=== PATIENT | female | born 1950 | race Caucasian/White ===

== ENCOUNTER → 2019-12-18 | Emergency (ER) | payer MEDICARE, OTHER ==
[~2019-12-18] VITALS: Ht 167.6 cm; Wt 61.2 kg
[~2019-12-18] MED LIST: CALCIUM 500 +1 EAC2 PO; CITALOPRAM HBR20 MG PO; IPRATROPIUM BRO15 ML NAS; LOVASTATIN20 MG PO; NORCO 10-325 T1 EACH PO; SERTRALINE HCL50 MG PO; XARELTO20 MG PO
--- OUTSIDE RECORDS SUMMARY | ~2019-12-18 | XMS | Encounter Summary ---
Demographics + + + | Address | [address] | | | [place] [address] | + + + | Home Phone | | + + + | Preferred Language | Unknown | + + + | Marital Status | | + + + | Alevism Affiliation | 1073 | + + + | Race | White | + + + | Ethnic Group | Not or | + + + Author + + + | Author | [facility] | | | and [place] | + + + | Organization | [facility] | | | and [place] | + + + | Address | Unknown | + + + | Phone | Unavailable | + + + Support + + + + + | Name | Relationship | Address | Phone | + + + + + | Ryan Elder | ECON | [address] | | | | | [place] | | | | | [address] | | + + + + + Care Team Providers + +------+ + | Care Music Arranger Name | Role | Phone | + +------+ + | Avi Herman MD | PCP | | + +------+ + Reason for Visit + +--------+ + | Reason | Onset | Comments | | | Date | | + +--------+ + | Appointment | 09/23/ | | | | 2015 | | + +--------+ + Encounter Details +--------+ + + + + | Date | Type | Department | Care Team | Description | +--------+ + + + + | 09/23/ | Telephone | [facility] | John Temple MD | Appointment | | 2015 | | GASTROENTEROLOGY | [address], [place] | | | | | [address] [place] | [address] [place], [place] | | | | | [address] [place], [place] | [address] | | | | | [address] | | | | | | [phone] | | | +--------+ + + + + Social History + +-------+ +--------+------+ | Tobacco Use | Types | Packs/Day | Years | Date | | | | | Used | | + +-------+ +--------+------+ | Former Smoker | | | | | + +-------+ +--------+------+ + +---+---+---+ | Smokeless Tobacco: | | | | | Never Used | | | | + +---+---+---+ + + | Comments: 10 years ago | + + + + +---------+ + | Alcohol Use | Drinks/Week | oz/Week | Comments | + + +---------+ + | Yes | 0 Standard drinks | 0.0 | "social drinker" | | | or equivalent | | | + + +---------+ + + + + | Sex Assigned at | Date Recorded | | | | + + + | Not on file | | + + + documented as of this encounter Miscellaneous Notes Telephone Encounter - Darlene Barrow RN - 09/26/2015 4:45 PM PDTPatient had knee bergman rgery a year ago and now it became loose and she needs a total knee replacement which is blanca eduled for 10/24/15. She is on xeralto for her atrial fib. She mainly wanted to make sure s he can get her colonoscopy done by Dr Temple this fall. She states her spouse needs one as aaron sher. She will call back in November. She has her prep from previously scheduled colonosco py which was cancelled when she developed Atrial fib. Told patient Dr Temple will need to rev iew her cardiology work up and she will likely need to hold the Xeralto.Electronically ayesha d by Darlene Barrow RN at 09/26/2015 4:52 PM PDTTelephone Encounter - Carmenza Parsons - 2015 4:51 PM PDTPatient called to speak with Dr. Temple's RN, Christian in regards to s cheduling her colonoscopy. She said that she just "needs to touch bases with Christian and sched ule her procedure before her knee surgery". Please advise and call her back at [phone] lectronically signed by Carmenza Parsons at 2015 4:54 PM PDTdocumented in this encounte r Plan of Treatment +--------+---------+ + + + | Date | Type | Specialty | Care Team | Description | +--------+---------+ + + + | 10/12/ | Office | Neurology | Geo Worley MD [address] | | | 2020 | Visit | | [address] | | | | | | [place], | | | | | | [place] [address] | | | | | | [phone] | | | | | | | | +--------+---------+ + + + documented as of this encounter Visit Diagnoses Not on filedocumented in this encounter
--- OUTSIDE RECORDS SUMMARY | ~2019-12-18 | XMS | Encounter Summary ---
Demographics + + + | Address | [address] | | | [place] [address] | + + + | Home Phone | | + + + | Preferred Language | Unknown | + + + | Marital Status | | + + + | Orthodoxy Affiliation | 1073 | + + + | Race | White | + + + | Ethnic Group | Not or | + + + Author + + + | Author | [facility] | | | and [place] | + + + | Organization | [facility] | | | [...] [place] | | | | | [address] | | + + + + + Care Team Providers + +------+ + | Care Care Aid Name | Role | Phone | + +------+ + | Avi Herman MD | PCP | | + +------+ + Reason for Visit +--------+--------+ + | Reason | Onset | Comments | | | Date | | +--------+--------+ + | Other | 07/08/ | | | | 2016 | | +--------+--------+ + Encounter Details +--------+ + + + + | Date | Type | Department | Care Team | Description | +--------+ + + + + | 07/08/ | Telephone | [facility] | John Temple MD | Other | | 2016 | | GASTROENTEROLOGY | [address], [place] | | | | | [address] [place] | [address] [place], [place] | | | | | [address] [place], [place] | [address] | | | | | [address] | | | | | | [phone] | | | +--------+ + + + [...] Telephone Encounter - Darlene Barrow RN - 07/08/2016 5:13 PM PDTNotified patient th at Dr. Temple and Dr. Simpson discussed her Xeralto and atrial flutter and feel it is better gabi t she continues on this her Xeralto prior to EGD and colonoscopy this Wednesday. She is agreea ble. documented in this encounter Plan of Treatment +--------+---------+ + + + | Date | Type | Specialty | Care Team | Description | +--------+---------+ + + + | 01/07/ | Office | Neurology | Geo Worley MD [address] | | | 2019 | Visit | | [facility] | | | | | | [place], | | | | | | [place] [address] | | | | | | [phone] | | | | | | | | +--------+---------+ + + + documented as of this encounter Visit Diagnoses Not on filedocumented in this encounter
--- OUTSIDE RECORDS SUMMARY | ~2019-12-18 | XMS | Encounter Summary ---
Demographics + + + | Address | [address] | | | [place] [address] | + + + | Home Phone | | + + + | Preferred Language | Unknown | + + + | Marital Status | | + + + | Orthodoxy Affiliation | 1073 | + + + | Race | White | + + + | Ethnic Group | Not or | + + + Author + + + | Author | [facility] | | | and [place] | + + + | Organization | [facility] | | | [...] [place] | | | | | [address] | | + + + + + Care Team Providers + +------+ + | Care Dough Scaler And Mixer Name | Role | Phone | + +------+ + | Avi Herman MD | PCP | | + +------+ + Reason for Visit + +--------+ + | Reason | Onset | Comments | | | Date | | + +--------+ + | Post-op Problem | 05/28/ | stuart may | | | 2014 | | + +--------+ + Encounter Details +--------+ + + + + | Date | Type | Department | Care Team | Description | +--------+ + + + + | 05/28/ | Telephone | [facility] | Pa Abad MD | Post-op Problem | | 2015 | | [address]ARYNGOLOGY [address] | [address] [place] | ([address] | | | | [address] [facility] [address] | [address] [place], [place] | her) | | | | [place] | [address] | | | | | [address] | | | | | | [phone] | | | +--------+ + + + + Social History + +-------+ +--------+------+ | Tobacco Use | Types | Packs/Day | Years | Date | | | | | Used | | + +-------+ +--------+------+ | Former Smoker | | | | | + +-------+ +--------+------+ + + | Comments: 10 years ago | + + + + +---------+ + | Alcohol Use | Drinks/Week | oz/Week | Comments | + + +---------+ + | Not Asked | | | | + + +---------+ + + + + | Sex Assigned at | Date Recorded | | | | + + + | Not on file | | + + + documented as of this encounter Miscellaneous Notes Telephone Encounter - Radelfinger, Rosemary S, RN - 05/28/2014 1:33 PM PSTCalled patient an d told her Dr Abad could see her today.Electronically signed by REBECCA Ward t 05/28/2014 1:48 PM PSTTelephone Encounter - Pa Abad MD - 05/28/2014 12:16 PM PSTEa rly is ok elephone Encou nter - Rosemary Syed RN - 05/28/2014 10:57 AM PSTPlease advise. She doesn't have a post prodecure appointment scheduled yet. elephone Encounter - Shauna Lemus - 05/28/2014 9:21 AM PSTP atient called saying she is having some trouble with her stitches. 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 Please call back on the cell phone listed and advise patient. documented in this encounter Plan of Treatment +--------+---------+ + + + | Date | Type | Specialty | Care Team | Description | +--------+---------+ + + + | 01/07/ | Office | Neurology | Geo Worley MD [address] | | | 2020 | Visit | | [address] | | | | | | [place] | | | | | | [place] [address] | | | | | | [phone] | | | | | | | | +--------+---------+ + + + documented as of this encounter Visit Diagnoses Not on filedocumented in this encounter"
--- OUTSIDE RECORDS SUMMARY | ~2019-12-18 | XMS | Encounter Summary ---
Demographics + + + | Address | [address] | | | [place] [address] | + + + | Home Phone | | + + + | Preferred Language | Unknown | + + + | Marital Status | | + + + | Mosque Affiliation | 1073 | + + + | Race | White | + + + | Ethnic Group | Not or | + + + Author + + + | Author | [facility] | | | and [place] | + + + | Organization | [facility] | | | and [...] [place] | | | | | [address] | | + + + + + Care Team Providers + +------+ + | Care Production Controller Name | Role | Phone | + +------+ + | Avi Herman MD | PCP | | + +------+ + Reason for Visit + + + | Reason | Comments | + + + | Follow-up | stool studies done 11/27/2016, previous positive Campylobacter | + + + Encounter Details +--------+---------+ + + + | Date | Type | Department | Care Team | Description | +--------+---------+ + + + | 12/01/ | Office | [facility] | John Temple MD | Diarrhea, | | 2017 | Visit | GASTROENTEROLOGY | [address], [facility] | unspecified type | | | | [address] [place] | [address] [place] | (Primary Dx); Full | | | | [address] [place] | [address] | incontinence of | | | | [address] | | feces | | | | [phone] | | | +--------+---------+ + + + Social History + + + +--------+ + | Tobacco Use | Types | Packs/Day | Years | Date | | | | | Used | | + + + +--------+ + | Former Smoker | Cigarettes | 1.5 | 5 | Quit: 03/29/1978 | + + + +--------+ + + +---+---+---+ | Smokeless Tobacco: | | | | | Never Used | | | | + +---+---+---+ + + +---------+ + | Alcohol Use | Drinks/Week | oz/Week | Comments | + + +---------+ + | Yes | 1 Shots of liquor | 1.0 | "social drinker" | | | 0 Standard drinks | | | | | or equivalent | | | + + +---------+ + + + + | Sex Assigned at | Date Recorded | | | | + + + | Not on file | | + + + documented as of this encounter Last Filed Vital Signs + + + + + | Vital Sign | Reading | Time Taken | Comments | + + + + + | Blood Pressure | 100/70 | 12/01/2016 1:32 PM | | | | | PDT | | + + + + + | Pulse | 64 | 12/01/2016 1:32 PM | | | | | PDT | | + + + + + | Temperature | - | - | | + + + + + | Respiratory Rate | 16 | 12/01/2016 1:32 PM | | | | | PDT | | + + + + + | Oxygen Saturation | - | - | | + + + + + | Inhaled Oxygen | - | - | | | Concentration | | | | + + + + + | Weight | 64.9 kg (143 lb) | 12/01/2016 1:32 PM | | | | | PDT | | + + + + + | Height | 170.2 cm (5' 7") | 12/01/2016 1:32 PM | | | | | PDT | | + + + + + | Body Mass Index | 22.4 | 12/01/2016 1:32 PM | | | | | PDT | | + + + + + documented in this encounter Progress Notes John Temple MD - 12/01/2016 1:00 PM PDT Subjective: Patient ID: Bekah Elder is a 66 y.o. female. The patient returns to discuss recurrent diarrhea. Patient underwent colonoscopy in June 2016 for evaluation of diarrhea. Upper endoscopy an d colonoscopy were negative with respect to visual appearance and biopsies of the mucosa. C ampylobacter however was positive. She was treated with azithromycin 500 mg 1 by mouth jef y for 3 days. She did fairly well for a week or 2 after treatment. However the stool was g radually gotten looser and she's had urgency with watery stools. She denies any blood or mu cus in the stools chills or fever. She has increased stool frequency after meals. Frequenc y is now up to 5 or 6 a day. She denies any nocturnal stools. The patient denies any abdom inal pain has some lower abdominal cramping prior to evacuation. Repeat stool studies were negative done through into Patches were negative as well as Giardia antigen and cryptosporidium and C. diff. The kvng ent's weight is been stable. The patient's has not been ill. They have well water but there is no livestock around the same for possible contamination. The patient has past history of irritable bowel syndrome. Patient has not tried Imodium or Lomotil as been on so me probiotics. 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 Bob CARPAL TUNNEL RELEASE Left CARPAL TUNNEL RELEASE Right CATARACT REMOVAL 2013 COLONOSCOPY COLONOSCOPY N/A 07/10/2016 Procedure: COLONOSCOPY; Surgeon: John Temple MD; Location: [facility] HIP ARTHROSCOPY Left KNEE ARTHROSCOPY Left 2011 KNEE JOINT REPLACEMENT Left 08/08/2014 Dr. Beltran TONSILLECTOMY UPPER GASTROINTESTINAL ENDOSCOPY N/A 07/10/2016 Procedure: EGD; Surgeon: John Temple MD; Location: [facility] VAGINA SURGERY Family History Problem Relation Age of Onset Heart attack Father Osteoarthritis Father Hypertension Father Muscle disease Father Kidney disease Father Gout Father Osteoporosis Mother Dementia Mother Other (see comment) Mother PAF Hypertension Mother Muscle disease Mother Kidney disease Mother Heart attack Mother Cancer Mother Hypertension Other Sibling history Heart attack Other Sibling history Muscle disease Other Sibling history Kidney disease Other Sibling history Social History Social History Marital status: Spouse name: N/A Number of children: N/A Years of education: N/A 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 All other systems reviewed and are negative. Objective: BP 100/70 | Pulse 64 | Resp 16 | Ht 1.702 m (5' 7") | Wt 64.9 kg (143 lb) | BMI 22.40 kg/m Physical Exam Constitutional: She is oriented to person, place, and time. She appears well-developed and well-nourished. No distress. HENT: Head: Normocephalic and atraumatic. Right Ear: External ear normal. Left Ear: External ear normal. Nose: Nose normal. Mouth/Throat: Oropharynx is clear and moist. No oropharyngeal exudate. Eyes: Conjunctivae and EOM are normal. Pupils are equal, round, and reactive to light. Righ t eye exhibits no discharge. Left eye exhibits no discharge. No scleral icterus. Neck: Normal range of motion. Neck supple. No JVD present. No tracheal deviation present. Cardiovascular: Normal rate, regular rhythm, normal heart sounds and intact distal pulses. Exam reveals no gallop and no friction rub. No murmur heard. Pulmonary/Chest: Effort normal and breath sounds normal. No stridor. No respiratory distres s. She has no wheezes. She has no rales. She exhibits no tenderness. Abdominal: Soft. Bowel sounds are normal. She exhibits no distension and no mass. There is no tenderness. There is no rebound and no guarding. Musculoskeletal: Normal range of motion. She exhibits no edema, tenderness or deformity. Lymphadenopathy: She has no cervical adenopathy. Neurological: She is alert and oriented to person, place, and time. No cranial nerve defici t. She exhibits normal muscle tone. Coordination normal. Skin: Skin is warm and dry. No rash noted. She is not diaphoretic. No erythema. No pallor. Psychiatric: She has a normal mood and affect. Her behavior is normal. Judgment and thought content normal. Nursing note and vitals reviewed. Assessment: Diarrhea questional postinfectious IBS versus recurrent infection although recent stool cul ture was negative Plan: Repeat course of azithromycin. If that is negative with respect to Campylobacter will in t reatment toward postinfectious IBS documented in this enc ounter Plan of Treatment +--------+---------+ + + + | Date | Type | Specialty | Care Team | Description | +--------+---------+ + + + | 01/07/ | Office | Neurology | Geo Worley MD [address] | | | 2020 | Visit | | [facility] | | | | | | [place] | | | | | | [place] [address] | | | | | | [phone] | | | | | | | | +--------+---------+ + + + documented as of this encounter Visit Diagnoses + + | Diagnosis | + + | Diarrhea, unspecified type - Primary | + + | Full incontinence of feces | + + documented in this encounter
--- OUTSIDE RECORDS SUMMARY | ~2019-12-18 | XMS | Encounter Summary ---
Demographics + + + | Address | [address] | | | [place] [address] | + + + | Home Phone | | + + + | Preferred Language | Unknown | + + + | Marital Status | | + + + | Episcopal Affiliation | 1073 | + + + | Race | White | + + + | Ethnic Group | Not or | + + + Author + + + | Author | [facility] | | | and [place] | + + + | Organization | [facility] | | [...] [place] | | | | | [address] | | + + + + + Care Team Providers + +------+ + | Care Sales Representative Publications Name | Role | Phone | + +------+ + | Avi Herman MD | PCP | | + +------+ + Reason for Visit + +--------+ + | Reason | Onset | Comments | | | Date | | + +--------+ + | Appointment | 04/30/ | Rescheduled due to Dr. called to hospital | | | 2017 | | + +--------+ + Encounter Details +--------+ + + + + | Date | Type | Department | Care Team | Description | +--------+ + + + + | 04/30/ | Telephone | [facility] | John Temple MD | Appointment | | 2017 | | GASTROENTEROLOGY | [address], [place] | (Rescheduled due to | | | | [address] [place] | [address] [place] | called to | | | | [address] [place], [place] | [address] | [facility]) | | | | [address] | | | | | | [phone] | | | +--------+ + + + [...] Telephone Encounter - Darlene Barrow RN - 04/30/2016 1:41 PM PSTSpoke with patient and she will cancel her appt for today due to Dr Temple being called to the hospital for an e mergent procedure. She mainly wanted to talk to Dr Temple about diarrhea and she is due for colonoscopy. She will call and talk to Christian next week and we will fit her in when it is co nvenient. document ed in this encounter Plan of Treatment +--------+---------+ + + + | Date | Type | Specialty | Care Team | Description | +--------+---------+ + + + | 01/07/ | Office | Neurology | Geo Worley MD [address] | | | 2020 | Visit | | [address] | | | | | | [place], | | | | | | [place] [address] | | | | | | [phone] | | | | | | | | +--------+---------+ + + + documented as of this encounter Visit Diagnoses Not on filedocumented in this encounter
--- OUTSIDE RECORDS SUMMARY | ~2019-12-18 | XMS | Encounter Summary ---
Demographics + + + | Address | [address] | | | [place] [address] | + + + | Home Phone | | + + + | Preferred Language | Unknown | + + + | Marital Status | | + + + | Mormon Affiliation | 1073 | + + + | Race | White | + + + | Ethnic Group | Not or | + + + Author + + + | Author | [facility] | | | and [place] | + + + | Organization | [facility] | | | and [place] | + + + | Address | Unknown | + + + | Phone | Unavailable | + + + Support + + + + + | Name | Relationship | Address | Phone | + + + + + | Ryan Elder | ECON | [address] | | | | | [place] | | | | | [address] | | + + + + + Care Team Providers + +------+ + | Care Education Program Associate Name | Role | Phone | + +------+ + PCP | Unavailable | + +------+ + Encounter Details +--------+ + + + + | Date | Type | Department | Care Team | Description | +--------+ + + + + | 03/04/ | Hospital | [facility] | | | | 1998 | Encounter | MED CTR XRAY [address] | | | | | | [address] | | | | | | [place] [id number] | | | | | | [phone] | | | +--------+ + + + + Social History + +-------+ +--------+------+ | Tobacco Use | Types | Packs/Day | Years | Date | | | | | Used | | + +-------+ +--------+------+ | Never Assessed | | | | | + +-------+ +--------+------+ + + + | Sex Assigned at | Date Recorded | | | | + + + | Not on file | | + + + documented as of this encounter Plan of Treatment +--------+---------+ + + + | Date | Type | Specialty | Care Team | Description | +--------+---------+ + + + | 01/07/ | Office | Neurology | Geo Worley MD [address] | | | 2020 | Visit | | [address] | | | | | | [place] | | | | | | [place] [address] | | | | | | [phone] | | | | | | | | +--------+---------+ + + + documented as of this encounter Visit Diagnoses Not on filedocumented in this encounter"
--- OUTSIDE RECORDS SUMMARY | ~2019-12-18 | XMS | Encounter Summary ---
Demographics + + + | Address | [address] | | | [place] [address] | + + + | Home Phone | | + + + | Preferred Language | Unknown | + + + | Marital Status | | + + + | Baptism Affiliation | 1073 | + + + | Race | White | + + + | Ethnic Group | Not or | + + + Author + + + | Author | [facility] | | | and [place] | + + + | Organization | [facility] | | | [...] [place] | | | | | [address] | | + + + + + Care Team Providers + +------+ + | Care Resource Paraprofessional Name | Role | Phone | + +------+ + PCP | Unavailable | + +------+ + Encounter Details +--------+ + + + + | Date | Type | Department | Care Team | Description | +--------+ + + + + | 12/08/ | Abstract | [place] [facility] | [facility] | | | 2011 | | Conversion Location | SR | | | | | [address] | | | | | | [place], [place] | | | | | | [address] | | | | | | [phone] | | | +--------+ + + + [...] + + + | Blood Pressure | 130/88 | 03/13/2010 12:00 AM | | | | | PST | | + + + + + | Pulse | - | - | | + + + + + | Temperature | - | - | | + + + + + | Respiratory Rate | - | - | | + + + + + | Oxygen Saturation | - | - | | + + + + + | Inhaled Oxygen | - | - | | | Concentration | | | | + + + + + | Weight | 61.2 kg (135 lb) | 03/13/2010 12:00 AM | | | | | PST | | + + + + + | Height | 170.2 cm (5' 7") | 04/25/2008 12:00 AM | | | | | PST | | + + + + + | Body Mass Index | 21.14 | 04/25/2008 12:00 AM | | | | | PST | | + + + + + documented in this encounter Plan of Treatment +--------+---------+ + + + | Date | Type | Specialty | Care Team | Description | +--------+---------+ + + + | 01/07/ | Office | Neurology | Geo Worley MD [address] | | | 2020 | Visit | | [address] | | | | | | [address] [place], | | | | | | [place] [address] | | | | | | [phone] | | | | | | | | +--------+---------+ + + + documented as of this encounter Procedures + +--------+ + + + | Procedure Name | Priori | Date/Time | Associated Diagnosis | Comments | | | ty | | | | + +--------+ + + + | ENDOSCOPY, COLON, | Routin | 04/17/2010 | | Results for this | | DIAGNOSTIC | e | 12:00 AM | | procedure are in the | | | | PST | | results section. | + +--------+ + + + documented in this encounter Results ENDOSCOPY, COLON, DIAGNOSTIC (04/17/2010 12:00 AM PST) + + | Specimen | + + | | + + + + + | Narrative | Performed At | + + + | | | + + + documented in this encounter Visit Diagnoses Not on filedocumented in this encounter
--- OUTSIDE RECORDS SUMMARY | ~2019-12-18 | XMS | Encounter Summary ---
Demographics + + + | Address | [address] | | | [place] [address] | + + + | Home Phone | | + + + | Preferred Language | Unknown | + + + | Marital Status | | + + + | Oriental Orthodox Affiliation | 1073 | + + + | Race | White | + + + | Ethnic Group | Not or | + + + Author + + + | Author | [facility] | | | and [place] | + + + | Organization | [facility] | | | and [...] [place] | | | | | [address] | | + + + + + Care Team Providers + +------+ + | Care Prototype Machinist Name | Role | Phone | + +------+ + | Avi Herman MD | PCP | | + +------+ + Reason for Visit +--------+--------+ + | Reason | Onset | Comments | | | Date | | +--------+--------+ + | Other | 12/18/ | Update on her symptoms | | | 2016 | | +--------+--------+ + Encounter Details +--------+ + + + + | Date | Type | Department | Care Team | Description | +--------+ + + + + | 12/18/ | Telephone | [facility] | John Temple MD | Other (Update on her | | 2017 | | GASTROENTEROLOGY | [address] [place] | symptoms) | | | | [address] [place] | [address] [place], [place] | | | | | [address] [place], [place] | [address] | | | | | [address] | | | | | | [phone] | | | +--------+ + + + + Social History + + [...] Telephone Encounter - Darlene Barrow RN - 12/18/2016 4:37 PM PDTSpoke with patient and she states she is doing much better. Stools are much more normal now. She appreciated the call. document ed in this encounter Plan of Treatment +--------+---------+ + + + | Date | Type | Specialty | Care Team | Description | +--------+---------+ + + + | 01/07/ | Office | Neurology | Geo Worley MD [address] | | | 2019 | Visit | | [address] | | | | | | [place], | | | | | | [place] [address] | | | | | | [phone] | | | | | | | | +--------+---------+ + + + documented as of this encounter Visit Diagnoses Not on filedocumented in this encounter
--- OUTSIDE RECORDS SUMMARY | ~2019-12-18 | XMS | Encounter Summary ---
Demographics + + + | Address | [address] | | | [place] [address] | + + + | Home Phone | | + + + | Preferred Language | Unknown | + + + | Marital Status | | + + + | Christianity Affiliation | 1073 | + + + | Race | White | + + + | Ethnic Group | Not or | + + + Author + + + | Author | [facility] | | | and [place] | + + + | Organization | [facility] | | | [...] [place] | | | | | [address] | | + + + + + Care Team Providers + +------+ + | Care Piercing Mill Operator Name | Role | Phone | + +------+ + | Avi Herman MD | PCP | | + +------+ + Encounter Details +--------+ + + + + | Date | Type | Department | Care Team | Description | +--------+ + + + + | 07/10/ | Anesthesia | [facility] | Fredrick Gerber | | | 2017 | Event | [facility] | MD Jas[address] | | | | | [address] | [address] [place] | | | | | [place], [place] | [place] [address] | | | | | [address] | [phone] | | | | | [phone] | | | +--------+ + + + + Anesthesia Record + + + + + | Procedure Name | Responsible | Anesthesia Start | Anesthesia Stop Time | | | Anesthesiologist | Time | | + + + + + | EGD (N/A Mouth) | Fredrick San | 07/10/16 1015 | 07/10/16 1117 | | | MD Zabrina | | | + + + + + +----+---+ + + | Da | T | Event | Comment | | te | i | | | | | m | | | | | e | | | +----+---+ + + | 04 | 0 | | | | /1 | 9 | | | | 4/ | 2 | | | | 20 | 0 | | | | 17 | | | | +----+---+ + + | | 1 | Antibiotic | | | | 0 | Given | | | | 0 | | | | | 5 | | | +----+---+ + + | | 1 | An Checkout | Pre-use anesthesia machine/equipment checkout. | | | 0 | | | | | 1 | | | | | 5 | | | +----+---+ + + | | 1 | An Start | Reassessment prior to anesthesia induction/procedure. | | | 0 | | | | | 1 | | | | | 5 | | | +----+---+ + + | | 1 | An Start | | | | 0 | Data | | | | 1 | | | | | 5 | | | +----+---+ + + | | 1 | Quick Note | Pre-op EKG being obtained | | | 0 | | | | | 1 | | | | | 6 | | | +----+---+ + + | | 1 | Preoxygenat | | | | 0 | ed | | | | 2 | | | | | 8 | | | +----+---+ + + | | 1 | Pre-Procedu | | | | 0 | ral Timeout | | | | 2 | Completed | | | | 9 | | | +----+---+ + + | | 1 | An | | | | 0 | Induction | | | | 3 | | | | | 0 | | | +----+---+ + + | | 1 | Breathing | | | | 0 | Spontaneous | | | | 3 | ly | | | | 1 | | | +----+---+ + + | | 1 | Quick Note | Table turned | | | 0 | | | | | 4 | | | | | 2 | | | +----+---+ + + | | 1 | an stop | | | | 1 | data | | | | 1 | | | | | 3 | | | +----+---+ + + | | 1 | An Stop | Patient handed off to recovery nurse. | | | 1 | | | | | 7 | | | +----+---+ + + +------+ | Meds | +------+ + + + | Name | Total | + + + | propofol (DIPRIVAN) injection | 110 mg | | (bolus) (20 mL) | | + + + | propofol | 364.19 mg | + + + | ampicillin 2 g in sodium chloride | 0 g | | 0.9% 100 mL IVPB | | + + + | gentamicin 60 mg in sodium | Cannot be | | chloride 0.9% 50 mL IVPB | calculated | + + + | Phenylephrine 100mcg/mL SYRINGE | 100 mcg | + + + | lactated ringers (LR) infusion | 600 mL | + + + + + | No agents on file. | + + + + | No blood administrations on file. | + + +--------+ + + + | Type | Details | Placement | Removal | +--------+ + + + | Periph | 07/10/16; 0945; Forearm; | 07/10/16 0945 by | 07/10/16 1200 by | | odilonl | mueh-nwd-odmohg catheter system; | Perla Whyte RN | Laura Naidu, | | IV | 20 gauge; distraction, | | RN | | | intradermal injection, tolerated | | | | | well; no longer indicated, | | | | | catheter/device intact, removed | | | | | per policy/procedure; 07/10/16; | | | | | 1200 | | | +--------+ + + + documented in this encounter Social History + + + +--------+ + [...] + + documented as of this encounter [place] Notes Anesthesia Postprocedure Evaluation - Fredrick Gerber MD - 07/10/2016 11:28 AM PDTFo rmatting of this note might be different from the original. ANESTHESIA POSTANESTHESIA EVALUATION Bekah Elder 65 y.o. female 1950 [id number] Awake and alert in phase II. No anesthesia complications. Procedure(s) EGD (N/A Mouth) COLONOSCOPY (N/A Rectum) Cooperates? Yes Mental Status Performs simple tasks. Respiratory Satisfactory - Airway patent (self maintained). Cardiovascular Satisfactory Blood pressure and heart rate acceptable Temperature Satisfactory Pain Satisfactory N/V Control Satisfactory Hydration Satisfactory No signs of dehydration Complications None apparent Filed Vitals: 07/10/16 0839 07/10/16 1116 BP: 119/78 82/45 Pulse: 67 82 Temp: 36.4 C (97.5 F) 36.5 C (97.7 F) Resp: 18 14 SpO2: 100% 100% Electronically signed by Fredrick Gerber MD 07/10/2016 11:28 [facility] nesthesia Prep rocedure Evaluation - Fredrick Gerber MD - 07/10/2016 9:21 AM PDT ANESTHESIA PREANESTHESIA EVALUATION Bekah Elder 65 y.o. female 1950 [id number] Procedure(s): EGD (N/A Mouth) COLONOSCOPY (N/A Rectum) Medical history, anesthesia, medications, allergy, NPO status verified histories reviewed. ECG reviewed. Labs reviewed. Review of Systems / Med History Anesthesia History No anesthesia complications. Labs from 04/2016 reviewed in [facility] H/o total knee in 2016 - antibiotics ordered per GI . (-) PONV Cardiovascular . (+) hypertension (+) Dysrhythmias: atrial fibrillation , Exercise tolerance >4 METS Pulmonary (+) shortness of breath Neurology Negative except where noted below. Psychology (+) depression Renal . Gastrointestinal/Hepatic (+) hyperlipidemia Endocrine (-) obesity. Other . (+) coagulopathy (On rivaroxiban) Physical Exam Airway MP I, TM >3 FB, Mouth opening >2 FB. Neck: full ROM, extends >30 degrees. Jaw protrusi on normal. Dental Grossly normal except where noted below.; (+) Age appropriate dentition. CV cardiovascular normal Rhythm regular. Rate normal. Pulm Clear to auscultation bilaterally. (-) wheezing and rhonchi. Neuro Grossly normal. Anesthesia Plan ASA 3 (A.fib, anticoagulated) Type: TIVA and general. Induction: Intravenous. Potential problems: None anticipated. Monitors: Standard ASA monitors. Consent statement:Anesthetic plan, alternatives, risks and benefits discussed with patient and spouse. Risks discussed included (but were not limited to): pain, respiratory events, voice injury, dental injury, perioperative CV events, sore throat, nausea, . Consenting person understands and agrees to proceed. PARQ. All questions answered in pre-op area before proceeding to GI suite - agrees to plan of TIV A with possibility of advanced airway if clinically indicated. . Electronically Signed by: Fredrick Gerber MD ESig date/time: 07/10/2016 9:20 documented in t his encounter Plan of Treatment +--------+---------+ + + + | Date | Type | Specialty | Care Team | Description | +--------+---------+ + + + | 01/07/ | Office | Neurology | Geo Worley MD [address] | | | 2020 | Visit | | [address] | | | | | | [address] [place], | | | | | | [place] [address] | | | | | | [phone] | | | | | | | | +--------+---------+ + + + documented as of this encounter Visit Diagnoses Not on filedocumented in this encounter Administered Medications + +---------+ +-------+-------+------+ | Medication Order | MAR | Action | Dose | Rate | Site | | | Action | Date | | | | + +---------+ +-------+-------+------+ | gentamicin 60 mg in sodium | New Bag | 07/11/19 | 60 mg | 103 | | | chloride 0.9% 50 mL IVPB 60 mg, | | 17 9:58 | | mL/hr | | | Intravenous, Administer over 30 | | AM PDT | | | | | Minutes, Prior to Incision, | | | | | | | Starting Wed07/10/16 at 0937, For | | | | | | | 1 dose, TO BE GIVEN PRIOR TO | | | | | | | PROCEDURE, Pre-op, Indications: | | | | | | | total knee replacement | | | | | | + +---------+ +-------+-------+------+ +---------+ +---+---+---+ | New Bag | 07/11/19 | | | | | | 17 9:57 | | | | | | AM PDT | | | | +---------+ +---+---+---+ +---+---+ | | | +---+---+ + +---------+ +---+---+---+ | lactated ringers (LR) infusion | New Bag | 07/11/19 | | | | | at 10-100 mL/hr, Intravenous, | | 17 9:45 | | | | | CONTINUOUS, Starting Wed07/10/16 | | AM PDT | | | | | at 1000, TKO., Pre-op | | | | | | + +---------+ +---+---+---+ +---------+ +---+ +---+ | New Bag | 07/11/19 | | 50 mL/hr | | | | 17 9:45 | | | | | | AM PDT | | | | +---------+ +---+ +---+ +---+---+ | | | +---+---+ + +-------+ +---------+---+---+ | phenylephrine (AILYN-SYNEPHRINE) | Given | 07/11/19 | 100 mcg | | | | 100 mcg/mL injection | | 17 10:56 | | | | | Intravenous, PRN, Starting Fri | | AM PDT | | | | | 07/10/16 at 1056, Anesthesia | | | | | | | Intra-op | | | | | | + +-------+ +---------+---+---+ +---+---+ | | | +---+---+ + + + + + +---+ | propofol (DIPRIVAN) injection | Rate/Dos | 07/11/19 | 75 | 27 mL/hr | | | Intravenous, CONTINUOUS PRN, | e Change | 17 11:01 | mcg/kg/m | | | | Starting 07/10/16 at 1030, | | AM PDT | in | | | | Anesthesia Intra-op | | | | | | + + + + + +---+ + + + +-------+---+ | Rate/Dose Change | 07/11/19 | 80 | 28.8 | | | | 17 10:50 | mcg/kg/m | mL/hr | | | | AM PDT | in | | | + + + +-------+---+ | Rate/Dose Change | 07/11/19 | 140 | 50.3 | | | | 17 10:45 | mcg/kg/m | mL/hr | | | | AM PDT | in | | | + + + +-------+---+ +---+---+ | | | +---+---+ + +-------+ +-------+---+---+ | propofol (DIPRIVAN) injection | Given | 07/11/19 | 30 mg | | | | Intravenous, PRN, Starting Fri | | 17 10:32 | | | | | 07/10/16 at 1030, Anesthesia | | AM PDT | | | | | Intra-op | | | | | | + +-------+ +-------+---+---+ +-------+ +-------+---+---+ | Given | 07/11/19 | 30 mg | | | | | 17 10:31 | | | | | | AM PDT | | | | +-------+ +-------+---+---+ | Given | 07/11/19 | 50 mg | | | | | 17 10:30 | | | | | | AM PDT | | | | +-------+ +-------+---+---+ +---+---+ | | | +---+---+ documented in this encounter
--- OUTSIDE RECORDS SUMMARY | ~2019-12-18 | XMS | Encounter Summary ---
Demographics + + + | Address | [address] | | | [place] [address] | + + + | Home Phone | | + + + | Preferred Language | Unknown | + + + | Marital Status | | + + + | Taoism Affiliation | 1073 | + + + | Race | White | + + + | Ethnic Group | Not or | + + + Author + + + | Author | [facility] | | | and [place] | + + + | Organization | [facility] | | | [...] [place] | | | | | [address] | | + + + + + Care Team Providers + +------+ + | Care Cyber Security Systems Engineer Name | Role | Phone | + +------+ + PCP | Unavailable | + +------+ + Encounter Details +--------+ + + + + | Date | Type | Department | Care Team | Description | +--------+ + + + + | 04/17/ | [facility] | [facility] | John Temple MD | | | 2010 | Encounter | MED CTR GENERIC OP | [address], [place] | | | | | CONV DEPT [address] | [address] [place], [place] | | | | | [place], | [address] | | | | | [place] [address] | | | | | | [phone] | | | +--------+ + + + [...] + + documented as of this encounter Medications at Time of Discharge + + + +---------+ + + | Medication | Sig | Dispensed | Refills | Start | End Date | | | | | | Date | | + + + +---------+ + + | Ascorbic Acid | Take 1,000 mg by | | 0 | 03/13/20 | | | (VITAMIN C) 1000 MG | mouth Daily. | | | 10 | 6 | | tablet | | | | | | + + + +---------+ + + | Cholecalciferol (D | TABS - one by mouth | | 0 | 03/13/20 | | | 1000 PO) | daily | | | 10 | 7 | + + + +---------+ + + | flecainide | Take 100 mg by mouth | | 0 | 03/13/20 | | | (TAMBOCOR) 100 mg | 2 times daily. | | | 10 | 6 | | tablet | | | | | | + + + +---------+ + + | Mometasone Furoate | SUSP - as needed | | 0 | 03/13/20 | | | (NASONEX NA) | | | | 10 | 6 | + + + +---------+ + + | Multiple | by mouth twice daily | | 0 | 03/13/20 | | | Minerals-Vitamins | | | | 10 | 7 | | (CALCIUM CITRATE +) | | | | | | | TABS | | | | | | + + + +---------+ + + | polyethylene | as needed | | 0 | 03/13/20 | | | glycol (MIRALAX) | | | | 10 | 7 | | powder | | | | | | + + + +---------+ + + | Risedronate Sodium | TABS - by mouth | | 0 | 03/13/20 | | | (ACTONEL PO) | monthly | | | 10 | 7 | + + + +---------+ + + | Tetrahydrozoline | SOLN - twice daily | | 0 | 03/13/20 | | | HCl ([facility] DROPS | | | | 10 | 7 | | OP) | | | | | | + + + +---------+ + + documented as of this encounter [...] | | | | | | [place] [address] | | | | | | [phone] | | | | | | | | +--------+---------+ + + + documented as of this encounter Visit Diagnoses Not on filedocumented in this encounter"
--- OUTSIDE RECORDS SUMMARY | ~2019-12-18 | XMS | Encounter Summary ---
Demographics + + + | Address | [address] | | | [place] [address] | + + + | Home Phone | | + + + | Preferred Language | Unknown | + + + | Marital Status | | + + + | Quaker Affiliation | 1073 | + + + | Race | White | + + + | Ethnic Group | Not or | + + + Author + + + | Author | [facility] | | | and [place] | + + + | Organization | [facility] | | | and [...] [place] | | | | | [address] | | + + + + + Care Team Providers + +------+ + | Care Carpet Installer Helper Name | Role | Phone | + [...] 2016 | | GASTROENTEROLOGY | [address] [place] | | | | | [address] [place] | [address] [place], [place] | | | | | [address] [place], [place] | [address] | | | | | [address] | | | | | | [phone] | | | +--------+ + + + [...] Encounter - Darlene Barrow RN - 07/08/2016 11:58 AM PDTPatient calls ranjeet saravia she lost her instructions and asks how long to hold the Xeralto. Read to her per Dr. Joe montenegro's office visit to hold 3 days prior. Patient's creatinine clearance is 86 so told patient likely can keep her on for EGD and colon on Wednesday. She will not take any today tomorrow o r Wednesday morning d ocumented in this encounter Plan of Treatment +--------+---------+ + + + | Date | Type | Specialty | Care Team | Description | +--------+---------+ + + + | 01/07/ | Office | Neurology | Geo Worley MD [address] | | | 2019 | Visit | [facility] | | | | | | [place] | | | | | | [place] [address] | | | | | | [phone] | | | | | | | | +--------+---------+ + + + documented as of this encounter Visit Diagnoses Not on filedocumented in this encounter
--- OUTSIDE RECORDS SUMMARY | ~2019-12-18 | XMS | Encounter Summary ---
Demographics + + + | Address | [address] | | | [place] [address] | + + + | Home Phone | | + + + | Preferred Language | Unknown | + + + | Marital Status | | + + + | Anabaptism Affiliation | 1073 | + + + | Race | White | + + + | Ethnic Group | Not or | + + + Author + + + | Author | [facility] | | | and [place] | + + + | Organization | [facility] | | | [...] [place] | | | | | [address] | | + + + + + Care Team Providers + +------+ + | Care Spool Carrier Name | Role | Phone | + +------+ + | Avi Herman MD | PCP | | + +------+ + Reason for Visit + + + | Reason | Comments | + + + | Follow-up | suture removal, patient states that she has no pain | + + + Encounter Details +--------+---------+ + + + | Date | Type | Department | Care Team | Description | +--------+---------+ + + + | 05/28/ | Office | [facility] | Pa Hebert MD | Neoplasm of | | 2015 | Visit | OTOLARYNGOLOGY [address] | [address] | uncertain behavior | | | | [address] [facility] [address] | [address] [place] | of lip, oral cavity, | | | | [place], [place] | [address] | and pharynx | | | | [address] | | (Primary Dx) | | | | [phone] | | | +--------+---------+ + + + Social History + +-------+ [...] + + + | Blood Pressure | - | - | | + + + + + | Pulse | 56 | 05/28/2014 3:26 PM | | | | | PST | | + + + + + | Temperature | - | - | | + + + + + | Respiratory Rate | 16 | 05/28/2014 3:26 PM | | | | | PST | | + + + + + | Oxygen Saturation | 97% | 05/28/2014 3:26 PM | | | | | PST | | + + + + + | Inhaled Oxygen | - | - | | | Concentration | | | | + + + + + | Weight | 61.2 kg (135 lb) | 05/28/2014 3:26 PM | | | | | PST | | + + + + + | Height | 170.2 cm (5' 7") | 05/28/2014 3:26 PM | | | | | PST | | + + + + + | Body Mass Index | 21.14 | 05/28/2014 3:26 PM | | | | | PST | | + + + + + documented in this encounter Progress Notes Pa Hebert MD - 05/28/2014 3:43 PM PST [facility] OTOLARYNGOLOGY [address] [facility] [address] OFFICE NOTE PA HEBERT MD Patient: BEKAH ELDER Admitting: MR #: [id number] LOC: PT TYPE: Adm Date: 05/28/2014 : 1950 POSTOP VISIT Patient 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 She comes in for suture removal. 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 The suture was removed with out difficulty. Her had removed 2 of the other sutures. Once removed, it felt muc h more comfortable and should continue now to heal very nicely. There is no evidence of any infection. Final pathology report was given to the patient and advised her to check with ENT as needed. PA HEBERT MD Dictated by PA HEBERT MD 05/28/2014 15:43:37 Transcribed on 05/28/2014 22:32:20 by gema job# [id number] Confirmation #: [id number] cc: AVI HERMAN MD Pa Vazquez MD - 05/28/2014 3:41 PM PSTSee dictation # [id number] signed by Pa Hebert MD at 05/28/2014 3:44 PM PSTdocumented in th is encounter Plan of Treatment +--------+---------+ + + + | Date | Type | Specialty | Care Team | Description | +--------+---------+ + + + | 01/07/ | Office | Neurology | Goe Worley MD [address] | | | 2020 | Visit | | [address] | | | | | | [place] | | | | | | [place] [address] | | | | | | [phone] | | | | | | | | +--------+---------+ + + + documented as of this encounter Visit Diagnoses + + | Diagnosis | + + | Neoplasm of uncertain behavior of lip, oral cavity, and pharynx - Primary | + + documented in this encounter
--- OUTSIDE RECORDS SUMMARY | ~2019-12-18 | XMS | Encounter Summary ---
Demographics + + + | Address | [address] | | | [place] [address] | + + + | Home Phone | | + + + | Preferred Language | Unknown | + + + | Marital Status | | + + + | Anglican Affiliation | 1073 | + + + | Race | White | + + + | Ethnic Group | Not or | + + + Author + + + | Author | [facility] | | | and [place] | + + + | Organization | [facility] | | | and [...] [place] | | | | | [address] | | + + + + + Care Team Providers + +------+ + | Care Graduation Coach Name | Role | Phone | + +------+ + | Avi Herman MD | PCP | | + +------+ + Encounter Details +--------+ + + + + | Date | Type | Department | Care Team | Description | +--------+ + + + + | 03/08/ | Abstract | [facility] [place] | Pa Abad MD | 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 | | OTOLARYNGOLOGY [address] | [address] [place] | atrioventricular | | | | [address] | [address] [place] [address] | excitation (Primary | | | | [place], [place] | [address] | Dx); Depression with | | | | [address] | | anxiety; | | | | [phone] | | Fibrillation, atrial | | | | | | (HCC); HTN | | | | | | (hypertension); | | | | | | Hyperlipidemia; | | | | | | Internal derangement | | | | | | of knee, | | | | | | unspecified | | | | | | laterality; | | | | | | Osteopenia; | | | | | | Postmenopausal | | | | | | disorder; | | | | | | Unspecified | | | | | | essential | | | | | | hypertension; | | | | | | Disorder of bone and | | | | | | cartilage, | | | | | | unspecified; | | | | | | Unspecified internal | | | | | | derangement of | | | | | | knee; Other and | | | | | | unspecified | | | | | | hyperlipidemia; | | | | | | Atrial fibrillation | | | | | | (HCC); Dysthymic | | | | | | disorder; Esophageal | | | | | | reflux | +--------+ + + + + Social [...] | | 2020 | Visit | | Resource Data | | | | | | [address] [place] | | | | | | [place] [address] | | | | | | [phone] | | | | | | | | +--------+---------+ + + + documented as of this encounter Visit Diagnoses + + | Diagnosis | + + | Anomalous atrioventricular excitation - Primary | + + | Depression with anxiety Dysthymic disorder | + + | Fibrillation, atrial (HCC) | + + | HTN (hypertension) Unspecified essential hypertension | + + | Hyperlipidemia Other and unspecified hyperlipidemia | + + | Internal derangement of knee, unspecified laterality | + + | Osteopenia Disorder of bone and cartilage, unspecified | + + | Postmenopausal disorder Unspecified menopausal and postmenopausal disorder | + + | Unspecified essential hypertension | + + | Disorder of bone and cartilage, unspecified | + + | Other and unspecified hyperlipidemia | + + | Atrial fibrillation (HCC) Atrial fibrillation | + + | Dysthymic disorder | + + | Esophageal reflux | + + documented in this encounter"
--- OUTSIDE RECORDS SUMMARY | ~2019-12-18 | XMS | Encounter Summary ---
Demographics + + + | Address | [address] | | | [place] [address] | + + + | Home Phone | | + + + | Preferred Language | Unknown | + + + | Marital Status | | + + + | Faith Affiliation | 1073 | + + + | Race | White | + + + | Ethnic Group | Not or | + + + Author + + + | Author | [facility] | | | and [place] | + + + | Organization | [facility] | | | and [...] [place] | | | | | [address] | | + + + + + Care Team Providers + +------+ + | Care Sample Examiner Name | Role | Phone | + +------+ + | Avi Herman MD | PCP | | + +------+ + Encounter Details +--------+ + + + + | Date | Type | Department | Care Team | Description | +--------+ + + + + | 12/01/ | Abstract | [facility] [place] | John Temple MD | | | 2016 | | GASTROENTEROLOGY | [address], [place] | | | | | [address] [place] | [address] [place], [place] | | | | | [address] [place], [place] | [address] | | | | | [address] | | | | | | [phone] | | | +--------+ + + + [...] + + + + | Weight | 62.1 kg (136 lb 12.8 | 12/01/2016 8:28 AM | | | | oz) | PDT | | + + + + + | Height | 170.2 cm (5' 7") | 12/01/2016 8:28 AM | | | | | PDT | | + + + + + | Body Mass Index | 21.43 | 12/01/2016 8:28 AM | | | | | PDT | | + + + + + documented in this encounter Plan of Treatment +--------+---------+ + + + | Date | Type | Specialty | Care Team | Description | +--------+---------+ + + + | 01/07/ | Office | Neurology | Geo Worley MD [address] | | | 2019 | Visit | | [address] | | | | | | [address] [place], | | | | | | [place] [address] | | | | | | [phone] | | | | | | | | +--------+---------+ + + + documented as of this encounter Procedures + +--------+ + + + | Procedure Name | Priori | Date/Time | Associated Diagnosis | Comments | | | ty | | | | + +--------+ + + + | HC GIARDIA ANTIGEN | Routin | 12/01/2016 | | Results for this | | | e | | | procedure are in the | | | | | | results section. | + +--------+ + + + | C. DIFFICILE TOXIN, | Routin | 07/02/2016 | | Results for this | | ANTIBODY | e | | | procedure are in the | | | | | | results section. | + +--------+ + + + | GIARDIA ANTIGEN, IF, | Routin | 07/02/2016 | | Results for this | | STOOL | e | | | procedure are in the | | | | | | results section. | + +--------+ + + + | OVA AND PARASITE | Routin | 07/02/2016 | | Results for this | | EXAMINATION | e | | | procedure are in the | | | | | | results section. | + +--------+ + + + | FECAL LEUKOCYTES | WES | 07/02/2016 | | Results for this | | | | | | procedure are in the | | | | | | results section. | + +--------+ + + + | CULTURE, STOOL | Routin | 07/02/2016 | | Results for this | | | e | | | procedure are in the | | | | | | results section. | + +--------+ + + + documented in this encounter Results HC GIARDIA ANTIGEN (12/01/2016) + + | Specimen | + + | | + + + + + | Impressions | Performed At | + + + | Ordered in error | | + + + Fecal leukocytes (07/02/2016) + + + + + + | Component | Value | Ref Range | Performed | Pathologist | | | | | At | Signature | + + + + + + | WBC Stool | 07/03/2016 No White | | | | | | Blood Cells Seen. | | | | + + + + + + + + | Specimen | + + | Stool - Stool | | specimen (specimen) | + + Culture, Stool (07/02/2016) + + + + + + | Component | Value | Ref Range | Performed | Pathologist | | | | | At | Signature | + + + + + + | Result | 07/03/2016 no growth of | | | | | | normal enteric | | | | | | gram-negative bacilli | | | | | | after overnight | | | | | | incubation. | | | | + + + + + + | Result | 07/04/2016 no growth of | | | | | | normal enteric | | | | | | gram-negative bacilli | | | | | | after 2 days incubation | | | | + + + + + + | Result | 07/05/2016 No antoine in | | | | | | growth. No Salmonella, | | | | | | Shigella, Escherichia | | | | | | coli 0157, | | | | | | Campylobacter, or | | | | | | Yersinia isolated. Not | | | | | | specifically tested for | | | | | | other enteric pathogens | | | | + + + + + + + + | Specimen | + + | Stool - Stool | | specimen (specimen) | + + Ova and Parasite Examination (07/02/2016) + + + + + + | Component | Value | Ref Range | Performed | Pathologist | | | | | At | Signature | + + + + + + | Ova + | No ova and parasites | | | | | Parasite | seen | | | | | Exam | | | | | + + + + + + + + | Specimen | + + | Stool - Stool | | specimen (specimen) | + + Giardia Ag, IF, Stool (07/02/2016) + + + + + + | Component | Value | Ref Range | Performed | Pathologist | | | | | At | Signature | + + + + + + | Giardia | Negative | Negative | | | | Antigen, | | | | | | Stool | | | | | + + + + + + + + | Specimen | + + | Stool - Stool | | specimen (specimen) | + + C. Difficile Toxin, Antibody (07/02/2016) + + + + + + | Component | Value | Ref Range | Performed | Pathologist | | | | | At | Signature | + + + + + + | C DIFFICILE | Negative for | | | | | ANTIGEN | toxin-producing | | | | | | Clostridium difficule | | | | | | and presumptive negative | | | | | | for the gene marker of | | | | | | 027/NAP1/BI strain. | | | | + + + + + + + + | Specimen | + + | Blood | + + documented in this encounter Visit Diagnoses Not on filedocumented in this encounter
--- OUTSIDE RECORDS SUMMARY | ~2019-12-18 | XMS | Encounter Summary ---
Demographics + + + | Address | [address] | | | [place] [address] | + + + | Home Phone | | + + + | Preferred Language | Unknown | + + + | Marital Status | | + + + | Scientology Affiliation | 1073 | + + + | Race | White | + + + | Ethnic Group | Not or | + + + Author + + + | Author | [facility] | | | and [place] | + + + | Organization | [facility] | | | [...] [place] | | | | | [address] | | + + + + + Care Team Providers + +------+ + | Care Steam Oven Operator Name | Role | Phone | + +------+ + | Avi Herman MD | PCP | | + +------+ + Reason for Visit + +--------+ + | Reason | Onset | Comments | | | Date | | + +--------+ + | Diarrhea | 07/29/ | | | | 2016 | | + +--------+ + Encounter Details +--------+ + + + + | Date | Type | Department | Care Team | Description | +--------+ + + + + | 07/29/ | Telephone | [facility] | John Temple MD | Diarrhea | | 2017 | | GASTROENTEROLOGY | [address] [place] | | | | | [address] [place] | [address] [place], [place] | | | | | [address] [place], [place] | [address] | | | | | [address] | | | | | | [phone] | | | +--------+ + + + [...] Telephone Encounter - Darlene Barrow RN - 07/29/2016 10:10 AM PDTPatient states they returned home from [place] last Wednesday. She took Azithromycin for 3 days to treat the Camp ylobacter and she has seen a slow down of her diarrhea. Has one or two loose stools about ev angel other day. Has started taking a probiotic called [employer] by [employer]. She will be traveling to [place] next week and will give us an update before she leaves [facility].Veronica ctronically signed by Darlene Barrow RN at 07/29/2016 10:15 AM PDTdocumented in this e ncounter Plan of Treatment +--------+---------+ + + + | Date | Type | Specialty | Care Team | Description | +--------+---------+ + + + | 01/07/ | Office | Neurology | Geo Wroley MD [address] | | | 2019 | Visit | | [employer] | | | | | | [address] [address] [place], | | | | | | [place] [address] | | | | | | [phone] | | | | | | | | +--------+---------+ + + + documented as of this encounter Visit Diagnoses Not on filedocumented in this encounter
--- OUTSIDE RECORDS SUMMARY | ~2019-12-18 | XMS | Encounter Summary ---
Demographics + + + | Address | [address] | | | [place] [address] | + + + | Home Phone | | + + + | Preferred Language | Unknown | + + + | Marital Status | | + + + | Buddhist Affiliation | 1073 | + + + | Race | White | + + + | Ethnic Group | Not or | + + + Author + + + | Author | [facility] | | | and [place] | + + + | Organization | [facility] | | | [...] [place] | | | | | [address] | | + + + + + Care Team Providers + +------+ + | Care Glass Mold Repairer Name | Role | Phone | + +------+ + | Avi Herman MD | PCP | | + +------+ + Reason for Referral Evaluate & Treat (Routine) +--------+ + + + + + | Status | Reason | Specialty | Diagnoses / | Referred By | Referred To | | | | | Procedures | Contact | Contact | +--------+ + + + + + | Closed | Specialty | Gastroenterol | Diagnoses | Harri, | Harri, | | | Services | ogy | Reflux | John Rose MD | John Rose MD | | | Required | | History of | [address], | | | | | colonic | [place], [place] | [address] | | | | | polyps | [address] [place] | [place], | | | | | Change in | [place], [place] | [place] [address] | | | | | bowel habits | [address] | Phone: | | | | | Procedures | Phone: | [phone] | | | | | [place] | [phone] | Fax: | | | | | COLONOSCOPY | Fax: | [phone] | | | | | FLX DX | [phone] | | | | | | W/COLLJ SPEC | | | | | | | WHEN PFRMD | | | | | | | NC | | | | | | | COLONOSCOPY | | | | | | | W/BIOPSY | | | | | | | SINGLE/MULTI | | | | | | | PLE NC | | | | | | | COLSC FLX | | | | | | | W/RMVL OF | | | | | | | TUMOR POLYP | | | | | | | LESION SNARE | | | | | | | TQ NC | | | | | | | ESOPHAGOGAST | | | | | | | RODUODENOSCO | | | | | | | PY TRANSORAL | | | | | | | DIAGNOSTIC | | | | | | | NC EDG | | | | | | | TRANSORAL | | | | | | | BIOPSY | | | | | | | SINGLE/MULTI | | | | | | | PLE | | | +--------+ + + + + + Reason for Visit + + + | Reason | Comments | + + + | Colon Cancer | | | Screening | | + + + Self-referral (Routine) +--------+--------+ + + + + | Status | Reason | Specialty | Diagnoses / | Referred By | Referred To | | | | | Procedures | Contact | Contact | +--------+--------+ + + + + | Closed | | Gastroenterol | Diagnoses | | [place], | | | | ogy | | | John Rose MD | | | | | CS/medicare/ | | [address], | | | | | [address] | | [address] | | | | | Procedures | | [place], | | | | | OFFICE VISIT | | [place] [address] | | | | | REGULAR | | Phone: | | | | | | | [phone] | | | | | | | Fax: | | | | | | | [phone] | +--------+--------+ + + + + Encounter Details +--------+---------+ + + + | Date | Type | Department | Care Team | Description | +--------+---------+ + + + | 01/22/ | Office | [facility] | John Temple MD | Reflux (Primary Dx); | | 2014 | Visit | GASTROENTEROLOGY | [address], [address] | History of colonic | | | | [address] [place] | [address] [place], [place] | polyps; Change in | | | | [address] [place], [place] | [address] | bowel habits | | | | [address] | | | | | | [phone] | | | +--------+---------+ + + + [...] + + + | Blood Pressure | 132/74 | 01/22/2015 2:55 PM | | | | | PDT | | + + + + + | Pulse | 74 | 01/22/2015 2:55 PM | | | | | PDT | | + + + + + | Temperature | - | - | | + + + + + | Respiratory Rate | 16 | 01/22/2015 2:55 PM | | | | | PDT | | + + + + + | Oxygen Saturation | 100% | 01/22/2015 2:55 PM | | | | | PDT | | + + + + + | Inhaled Oxygen | - | - | | | Concentration | | | | + + + + + | Weight | 63.7 kg (140 lb 8 | 01/22/2015 2:55 PM | | | | oz) | PDT | | + + + + + | Height | 170.2 cm (5' 7") | 01/22/2015 2:55 PM | | | | | PDT | | + + + + + | Body Mass Index | 22.01 | 01/22/2015 2:55 PM | | | | | PDT | | + + + + + documented in this encounter Progress Notes John Temple MD - 01/22/2015 3:27 PM PDT Subjective: Patient ID: Bekah Elder is a 64 y.o. female. HPI Comments: Patient is seen for 2 gastrointestinal tract concerns gastroesophageal reflux change in bowel pattern past history of colonic polyps . Outside records are reviewed The patient is on Protonix 40 mg a day for reflux. Upper endoscopy done March 2010 was negative for Page's metaplasia. Did have evidence of esophagitis. She reports that she has breakthrough symptoms of epigastric and retrosternal burning pain. When that occurs she takes Gaviscon and symptoms are improved. She has rare episodes of dysphagia at that time she has increased symptoms of reflux. patient has had no weight loss denies hematemesis or m evangelina. There is no family history of Page's metaplasia. The patient does not follow an antireflux regimen but is not obese She has also noticed a change in bowel pattern. She is to have episodes of constipation alatorre s been taking a probiotic and her constipation has resolved. She states that if she takes a probiotic on a continuous basis she'll have loose stools. An additional stools are soft bu t occasionally are difficult to cleanse the perineal area. She's noticed no blood or mucus in the stools. Denies any pain during evacuation In March 2010 showed 3 adenomatous polyp s removed from the hepatic flexure. There is no family history of colon cancer or polyps sh e complains of right lower quadrant pain not associated with meals or with defecation. She has noticed no decrease in diameter of the stool colonoscopy in 2010 was remarkable for redu ndancy and atonicity Chart review is remarkable for left partial knee replacement atrial fibrillation treated wi th ablation therapy I pretension. 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 Bob Knee arthroscopy Left 2011 Knee joint replacement Left 08/08/2014 Dr. Beltran Family History Problem Relation Age of Onset Osteoporosis Mother at 80 Dementia Mother Other (See Comment) Father at 60 History Social History Marital Status: Spouse Name: N/A Number of Children: N/A Years of Education: N/A Occupational History Retired [employer] Social History Main Topics Smoking status: Former Smoker Smokeless tobacco: Never Used Comment: 10 years ago Alcohol Use: 0.0 oz/week 0 Not specified per week Comment: "social drinker" Drug Use: No Sexual Activity: None Other Topics Concern None Social History Narrative Review of Systems HENT: Positive for postnasal drip and rhinorrhea. Eyes: Positive for pain. Respiratory: Negative. Cardiovascular: Positive for palpitations. Gastrointestinal: Positive for diarrhea and constipation. Endocrine: Negative. Genitourinary: Negative. Musculoskeletal: Positive for joint swelling and arthralgias. Skin: Negative. Allergic/Immunologic: Negative. Neurological: Positive for weakness. Objective: Physical Exam Constitutional: She is oriented to [...] has no wheezes. She has no rales. Abdominal: Soft. Bowel sounds are normal. She exhibits no distension and no mass. There is no tenderness. There is no rebound and no guarding. Decreased bowel sounds tympany to percussion throughout upper abdomen Musculoskeletal: Normal range of motion. She exhibits no edema or tenderness. Lymphadenopathy: She has no cervical adenopathy. Neurological: She is alert and oriented to person, place, and time. No cranial nerve defici t. She exhibits normal muscle tone. Coordination normal. Skin: Skin is warm and dry. No rash noted. No erythema. No pallor. Psychiatric: She has a normal mood and affect. Her behavior is normal. Judgment and thought content normal. Nursing note and vitals reviewed. Assessment: Gastroesophageal reflux proton pump inhibitor dependent occasional breakthrough symptoms re quiring additional antacid therapy Change in bowel pattern probably secondary to probiotic use but with past history of 3 ankush omatous polyps removed from the hepatic flexure appropriate candidate for follow-up colonosc opy Recent partial total knee appropriate candidate for antibiotic therapy prior to colonoscopy Plan: Upper endoscopy colonoscopy. Benefits and risks of the procedure are explained to the kvng ent she concurs and she'll be scheduled as an outpatient at her convenience with antibiotic prophylaxis Portions of this report were transcribed using voice recognition software. Every effort wa s made to ensure accuracy; however, inadvertent computerized silverlight developer errors may be pre sent. documented in this enc ounter Miscellaneous Notes Addendum Note - Darlene Pineda RN - 01/22/2015 4:14 PM PDT Addended by: RENÉ PINEDA on: 01/22/2015 16:14 Modules accepted: Orders documented in this encounter Plan of Treatment +--------+---------+ + + + | Date | Type | Specialty | Care Team | Description | +--------+---------+ + + + | 01/07/ | Office | Neurology | Geo Worley MD [address] | | | 2019 | Visit | [facility] | | | | | [place], | | | | | | [place] [address] | | | | | | [phone] | | | | | | | | +--------+---------+ + + + + + +--------+ + + | Name | Type | Priori | Associated Diagnoses | Order Schedule | | | | ty | | | + + +--------+ + + | Ambulatory referral | Outpatient | Routin | Acid reflux | Expected: | | to Gastroenterology | Referral | e | disease History of | 02/05/2015, Expires: | | (windy) | | | colonic polyps | 01/22/2016 | | | | | Change in bowel | | | | | | habits | | + + +--------+ + + documented as of this encounter Visit Diagnoses + + | Diagnosis | + + | Reflux - Primary Esophageal reflux | + + | History of colonic polyps Personal history of colonic polyps | + + | Change in bowel habits Other symptoms involving digestive system | + + documented in this encounter
--- OUTSIDE RECORDS SUMMARY | ~2019-12-18 | XMS | Encounter Summary ---
Demographics + + + | Address | [address] | | | [place] [address] | + + + | Home Phone [...] [place] | | | | | [address] | | + + + + + Care Team Providers + +------+ + | Care Chili Maker Name | Role | Phone | + +------+ + | Avi Herman MD | PCP | | + +------+ + Encounter Details +--------+ + + + + | Date | Type | Department | Care Team | Description | +--------+ + + + + | 11/01/ | Hospital | [facility] | Dany Terrazas, | Right knee pain, | | 2018 | Encounter | [facility] | MD [address] | unspecified | | | | [address] [place] | [place], [place] | chronicity | | | | [place], [place] | [address] | | | | | [address] | | | | | | [phone] | | | +--------+ + + + [...] + + + +---------+ + + | | Take 1,500 mg by | | 0 | | | | Yixfeos-Tkihyinxt-Bl | mouth. | | | | | | tamin D (CITRACAL | | | | | | | SLOW RELEASE) | | | | | | | 600-40-500 | | | | | | | MG-MG-UNIT TB24 | | | | | | + + + +---------+ + + | cholecalciferol | Take 400 Units by | | 0 | 12/09/19 | | | (VITAMIN D-3) 400 | mouth Daily. | | | 12 | | | units TABS | | | | | | + + + +---------+ + + | ipratropium | INSTILL TWO SPRAYS | 15 mL | 5 | 05/20/19 | | | (ATROVENT) 0.06% | IN EACH NOSTRIL UP | | | 17 | | | nasal spray | TO FOUR TIMES DAILY | | | | | | | NEEDED | | | | | + + + +---------+ + + | Polyethylene | Apply to eye Daily | | 0 | | | | Glycol 400 (BLINK | as needed. | | | | | | TEARS OP) | | | | | | + + + +---------+ + + | alendronate | | | 12 | 10/14/19 | | | (FOSAMAX) 70 mg | | | | 18 | 0 | | tablet | | | | | | + + + +---------+ + + | estradiol | Place 10 mcg | | 0 | | | | (VAGIFEM) 10 mcg | vaginally as needed. | | | | 0 | | vaginal tablet | | | | | | + + + +---------+ + + | Lysine 500 MG CAPS | Take 500 mg by mouth | | 0 | | | | | Daily. | | | | 0 | + + + +---------+ + + | metoprolol | one tablet by mouth | | 1 | 06/26/19 | | | succinate | daily | | | 17 | 0 | | (TOPROL-XL) 25 mg 24 | | | | | | | hr tablet | | | | | | + + + +---------+ + + | mupirocin | Apply topically to | 22 g | 1 | 12/06/19 | | | (BACTROBAN) 2% | the nose as | | | 15 | 0 | | ointment | directed. | | | | | + + + +---------+ + + | rivaroxaban | Take 20 mg by mouth | | 0 | | | | (XARELTO) 20 mg | Daily. | | | | 0 | | tablet | | | | | | + + + +---------+ + + | sertraline | 1 and 03/30 tablet by | | 0 | 12/09/19 | | | (ZOLOFT) 50 mg | mouth daily | | | 12 | 0 | | tablet | | | | [...] | | | | | | [place] [address] | | | | | | [phone] | | | | | | | | +--------+---------+ + + + documented as of this encounter Procedures + +--------+ + + + | Procedure Name | Priori | Date/Time | Associated Diagnosis | Comments | | | ty | | | | + +--------+ + + + | XR KNEE RIGHT 3 VW | Routin | 11/01/2017 | Right knee pain, | Results for this | | | e | 10:09 AM | unspecified | procedure are in the | | | | PDT | chronicity | results section. | + +--------+ + + + documented in this encounter Results XR Knee Right 3 Vw (11/01/2017 10:09 AM PDT) + + | Specimen | + + | | + + + + + | Narrative | Performed At | + + + | XR KNEE RIGHT 3 VW 11/01/2017 9:54 AM HISTORY: EPNP --- Right Knee | [facility] | | Pain --- Onset 09/2015. COMPARISON: None. FINDINGS: Intact | | | appearance of the total left knee arthroplasty. Mild to moderate | | | medial compartment joint space narrowing of the right knee with only | | | minimal tricompartmental right knee osteophytosis. Lucent lesion is | | | seen along the medial tibial plateau epiphysis measuring 12 mm. | | | Small 9 mm sclerotic region seen along the medial femoral condyle. | | | IMPRESSION - Lucent lesion is seen along the medial tibial | | | plateau epiphysis measuring 12, this is new since 2015. Given the | | | patient's age, differential includes metastasis, geode, infection, | | | or multiple myeloma. Recommend contrast enhanced MRI for further | | | characterization. Dictated and Signed by: Baljit Gleason MD | | | Electronically signed: 11/01/2017 11:01 AM | | + + + + + | Procedure Note | + + | Paddy, Rad Results In - 11/01/2017 11:04 AM PDT XR KNEE RIGHT 3 VW 11/01/2017 9:54 AM | | | | HISTORY: EPNP --- Right Knee Pain --- Onset 09/2015. | | | | COMPARISON: None. | | | | FINDINGS: | | Intact appearance of the total left knee arthroplasty. Mild to moderate medial | | compartment joint space narrowing of the right knee with only minimal | | tricompartmental right knee osteophytosis. Lucent lesion is seen along the | | medial tibial plateau epiphysis measuring 12 mm. Small 9 mm sclerotic region | | seen along the medial femoral condyle. | | | | IMPRESSION - | | Lucent lesion is seen along the medial tibial plateau epiphysis measuring 12, | | this is new since 2014. Given the patient's age, differential includes | | metastasis, geode, infection, or multiple myeloma. | | | | Recommend contrast enhanced MRI for further characterization. | | | | | | | | Dictated and Signed by: Baljit Gleason MD | | Electronically signed: 11/01/2017 11:01 AM | + + + +---------+ + + | Performing | Address | City/State/Zipcode | Phone Number | | Organization | | | | + +---------+ + + | [facility] | | | | + +---------+ + + documented in this encounter Visit Diagnoses + + | Diagnosis | + + | Right knee pain, unspecified chronicity | + + documented in this encounter
--- OUTSIDE RECORDS SUMMARY | ~2019-12-18 | XMS | Encounter Summary ---
Demographics + + + | Address | [address] | | | [place] [address] | + + + | Home Phone | | + + + | Preferred Language | Unknown | + + + | Marital Status | | + + + | Episcopal Affiliation | 1073 | + + + | Race | White | + + + | Ethnic Group | Not or | + + + Author + + + | Author | [facility] | | | and [place] | + + + | Organization | [facility] | | | [...] [place] | | | | | [address] | | + + + + + Care Team Providers + +------+ + | Care Tire Center Manager Name | Role | Phone | + +------+ + | Avi Herman MD | PCP | | + +------+ + Reason for Visit +---------+--------+ + | Reason | Onset | Comments | | | Date | | +---------+--------+ + | Results | 12/23/ | NM Bone Scan Results | | | 2017 | | +---------+--------+ + Encounter Details +--------+ + + + + | Date | Type | Department | Care Team | Description | +--------+ + + + + | 12/23/ | Telephone | [facility] | Dany Terrazas, | Results (NM Bone | | 2018 | | ORTHOPEDIC SURGERY | [address] | Scan Results) | | | | [address] | [place] | | | | | [place] | [id number] | | | | | [address] | | | | | | [phone] | | | +--------+ + + + [...] this encounter Miscellaneous Notes Telephone Encounter - Alessia Taylor Cert MA - 12/23/2017 4:[address] jimenez I called and notified Bekah that the only area that lights up in the bone scan is seen i n the knee- so they can be reassured that it is very unlikely that the lesion we see in the tibia is anything else but a simple 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 Bekah was very appreciativ e of the call and will let us know if she has any other questions or concerns. We cancelled her follow up appointment per her request. documented in this encounter Plan of Treatment +--------+---------+ + + + | Date | Type | Specialty | Care Team | Description | +--------+---------+ + + + | 01/07/ | Office | Neurology | Geo Worley MD [address] | | | 2020 | Visit | | SCHEDit | | | | | | [place], | | | | | | [place] [address] | | | | | | [phone] | | | | | | | | +--------+---------+ + + + documented as of this encounter Visit Diagnoses Not on filedocumented in this encounter
--- OUTSIDE RECORDS SUMMARY | ~2019-12-18 | XMS | Encounter Summary ---
Demographics + + + | Address | [address] | | | [place] [address] | + + + | Home Phone | | + + + | Preferred Language | Unknown | + + + | Marital Status | | + + + | Hinduism Affiliation | 1073 | + + + | Race | White | + + + | Ethnic Group | Not or | + + + Author + + + | Author | [facility] | | | and [place] | + + + | Organization | [facility] | | | [...] [place] | | | | | [address] | | + + + + + Care Team Providers + +------+ + | Care Ep Specialist Name | Role | Phone | + +------+ + | Avi Herman MD | PCP | | + +------+ + Encounter Details +--------+ + + + + | Date | Type | Department | Care Team | Description | +--------+ + + + + | 03/11/ | Abstract | [facility] | John Temple MD | | | 2015 | | GASTROENTEROLOGY | [address], [place] | | | | | [address] [place] | [address] [place], [place] | | | | | [address] [place], [place] | [address] | | | | | [address] | | | | | | [phone] | | | +--------+ + + + [...] | 2020 | Visit | | [address] | | | | | | [place] | | | | | | [place] [address] | | | | | | [phone] | | | | | | | | +--------+---------+ + + + documented as of this encounter Visit Diagnoses Not on filedocumented in this encounter
--- OUTSIDE RECORDS SUMMARY | ~2019-12-18 | XMS | Encounter Summary ---
Demographics + + + | Address | [address] | | | [place] [address] | + + + | Home Phone | | + + + | Preferred Language | Unknown | + + + | Marital Status | | + + + | Christianity Affiliation | 1073 | + + + | Race | White | + + + | Ethnic Group | Not or | + + + Author + + + | Author | [facility] | | | and [place] | + + + | Organization | [facility] | | | [...] [place] | | | | | [address] | | + + + + + Care Team Providers + +------+ + | Care Dairy Farm Operator Name | Role | Phone | + +------+ + | Avi Herman MD | PCP | | + +------+ + Reason for Visit + +--------+ + | Reason | Onset | Comments | | | Date | | + +--------+ + | Appointment | 02/04/ | cancel egd,colon due to AF | | | 2014 | | + +--------+ + Encounter Details +--------+ + + + + | Date | Type | Department | Care Team | Description | +--------+ + + + + | 02/04/ | Telephone | [facility] | John Temple MD | Appointment (cancel | | 2015 | | GASTROENTEROLOGY | [address], [place] | egd,colon due to AF) | | | | [address] [place] | [address] [place] | | | | | [address] [place], [place] | [address] | | | | | [address] | | | | | | [phone] | | | +--------+ + + + [...] Telephone Encounter - Darlene Barrow RN - 02/04/2015 2:05 PM PSTPatient states she started going into Atrial fib today. It started last Wednesday for a few hours. It went away. It came back this afternoon. Spoke with Dr Temple and he felt patient should be reevaluated b rekha Herman and or her architectural engineer. Once we have cardiology clearance we will reschedule t he EGD and colon. Would consider using anesthesia. Patient needs antibiotics. Message sen t to scheduling. elephone Encounter - Jena Harper - 02/04/2015 1:38 PM PSTPatient called and has a p rocedure in the morning and has some questions prior to starting the prep at 4. Please give her a call back dougie ruiz in this encounter Plan of Treatment +--------+---------+ + + + | Date | Type | Specialty | Care Team | Description | +--------+---------+ + + + | 01/07/ | Office | Neurology | Geo Worley MD [address] | | | 2020 | Visit | | [address] [place] | | | | | | [place] | | | | | | [place] [address] | | | | | | [phone] | | | | | | | | +--------+---------+ + + + documented as of this encounter Visit Diagnoses Not on filedocumented in this encounter
--- OUTSIDE RECORDS SUMMARY | ~2019-12-18 | XMS | Encounter Summary ---
Demographics + + + | Address | [address] | | | [place] [address] | + + + | Home Phone | | + + + | Preferred Language | Unknown | + + + | Marital Status | | + + + | Yarsani Affiliation | 1073 | + + + | Race | White | + + + | Ethnic Group | Not or | + + + Author + + + | Author | [facility] | | | and [place] | + + + | Organization | [facility] | | | [...] [place] | | | | | [address] | | + + + + + Care Team Providers + +------+ + | Care Safe Deposit Clerk Name | Role | Phone | + +------+ + | Avi Herman MD | PCP | | + +------+ + Reason for Referral Diagnostic/Screening (Routine) +--------+--------+ + + + + | Status | Reason | Specialty | Diagnoses / | Referred By | Referred To | | | | | Procedures | Contact | Contact | +--------+--------+ + + + + | Closed | | Radiology | Diagnoses | Harri, | [facility] | | | | | Weight | John Rose MD | [address] | | | | | loss, | [address] | [place], | | | | | unintentiona | [place], [place] | [place] | | | | | l Diarrhea, | [address] [place] | [address] | | | | | unspecified | [place], [place] | Phone: | | | | | type | [address] | [phone] | | | | | Procedures | Phone: | Fax: | | | | | MRI | [phone] | [phone] | | | | | Enterography | Fax: | | | | | | w wo | [phone] | | | | | | Contrast MO | | | | | | | MRI, | | | | | | | ABDOMEN, | | | | | | | COMBO MO | | | | | | | MRI, PELVIS, | | | | | | | COMBO | | | +--------+--------+ + + + + Reason for Visit + + + | Reason | Comments | + + + | Follow-up(Procedure) | 07/10/2016 | + + + | Diarrhea | | + + + Encounter Details +--------+---------+ + + + | Date | Type | Department | Care Team | Description | +--------+---------+ + + + | 04/28/ | Office | [facility] | John Temple MD | Weight loss, | | 2017 | Visit | GASTROENTEROLOGY | [address], [place] | unintentional | | | | [address] [place] | [address] [place] | (Primary Dx); | | | | [address] [place] | [address] | Diarrhea, | | | | [address] | | unspecified type | | | | [phone] | | | +--------+---------+ + + + [...] + + + | Blood Pressure | 101/58 | 04/28/2017 2:21 PM | | | | | PST | | + + + + + | Pulse | 58 | 04/28/2017 2:21 PM | | | | | PST | | + + + + + | Temperature | - | - | | + + + + + | Respiratory Rate | 58 | 04/28/2017 2:21 PM | | | | | PST | | + + + + + | Oxygen Saturation | - | - | | + + + + + | Inhaled Oxygen | - | - | | | Concentration | | | | + + + + + | Weight | 64 kg (141 lb 1.5 | 04/28/2017 2:21 PM | | | | oz) | PST | | + + + + + | Height | 170.2 cm (5' 7") | 04/28/2017 2:21 PM | | | | | PST | | + + + + + | Body Mass Index | 22.1 | 04/28/2017 2:21 PM | | | | | PST | | + + + + + documented in this encounter Progress Notes John Temple MD - 04/28/2017 2:30 PM PST Subjective: Patient ID: Bekah Elder is a 66 y.o. female. The patient is seen in follow-up with respect to diarrhea The patient underwent upper endoscopy and colonoscopy for evaluation of the same 2016. Biopsies of the duodenum right and left colon were negative for significant abnormalities co ntributing to diarrhea. Campylobacter was positive on stool studies has was lactoferrin. Boni lund was treated with azithromycin. She improved but then had recurrence of diarrhea has had 2 subsequent courses of azithromycin. She reports that she believes that her diarrhea i s getting worse. Before the treatment of Campylobacter her bowel pattern was somewhat hard to determine by history but she had episodes of diarrhea. However now she'll have diarrhea which she describes as multiple loose repetitive stools for 2-3 days rather than just one da y. She will have her go a week or so without having any diarrhea. When she does have diarr hea she takes Imodium and it may take one or 2 Imodium to resolve with diarrhea. She's had episodes of incontinence has had nocturnal awakening in order to evacuate her bowels. Patie nt denies any blood or mucus in the stools has abdominal cramping but denies any overt abdom inal pain. No family history of inflammatory bowel disease or IBS immunological phenomenon. She denies tachycardia chest or trunk flushing other signs of possible neuroendocrine dysf unction. Patient's weight is been stable. She denies chills or fever. Patient denies any difficulties with urination with holding urine incontinence incomplete evacuation or other s igns or symptoms of pelvic floor dysfunction. The patient has been unable to identify any d ietary factors contributing to her diarrhea emotional stressors etc. she denies taking any c hange in [id number]-hbd-[id number] medications has discontinued fish oil capsules and has decreased h er probiotic to half a dose 3 times a week as that increases her symptoms of diarrhea Vitals: 04/28/17 1421 BP: 101/58 Pulse: 58 Resp: (!) 58 PainSc: 0 - No pain Allergies Allergen Reactions Moexipril Hydrochloride Shortness Of Breath AKA Univasc Metoclopramide Other (See Comments) depression Oxycodone Other (See Comments) "makes her crazy" Propafenone Other (See Comments) Did not work for her Afib, she wants this on her allergy list Past Medical History: Diagnosis Date Anomalous atrioventricular [...] Left CARPAL TUNNEL RELEASE Right CATARACT REMOVAL 2012 COLONOSCOPY COLONOSCOPY N/A 07/10/2016 Procedure: COLONOSCOPY; Surgeon: John Temple MD; Location: [facility] HIP ARTHROSCOPY Left KNEE ARTHROSCOPY Left 2011 KNEE JOINT REPLACEMENT Left 08/08/2014 Dr. Beltran TONSILLECTOMY UPPER GASTROINTESTINAL ENDOSCOPY N/A 07/10/2016 Procedure: EGD; Surgeon: John Temple MD; Location: [facility] VAGINA SURGERY Family [...] Years of education: N/A Occupational History Retired [employer] Social History Main Topics Smoking status: Former Smoker Packs/day: 1.50 Years: 5.00 Types: Cigarettes Quit date: 03/29/1978 Smokeless tobacco: Never Used Alcohol use 0.6 oz/week 1 Shots of liquor per week Comment: "social drinker" Drug use: No Sexual activity: Not Asked Other Topics Concern None Social History Narrative None Review of Systems Gastrointestinal: Positive for diarrhea. All other systems reviewed and are negative. Objective: BP 101/58 | Pulse 58 | Resp (!) 58 | Ht 1.702 m (5' 7") | Wt 64 kg (141 lb 1.5 oz) | B RI 22.10 kg/m Physical Exam Constitutional: She is oriented [...] Normal range of motion. Neck supple. No tracheal deviation present. Cardiovascular: Normal rate, [...] She exhibits no edema, tenderness or deformity. Neurological: She is alert and oriented to person, place, and time. No cranial nerve defici t. She exhibits normal muscle tone. Coordination normal. Skin: Skin is warm and dry. No rash noted. She is not diaphoretic. No erythema. No pallor. Psychiatric: She has a normal mood and affect. Her behavior is normal. Judgment and thought content normal. Nursing note and vitals reviewed. Assessment: Suspect baseline irritable bowel made worse with Campylobacter infection i.e. postinfectiou s IBS however nocturnal stooling and incontinence is disconcerting It was explained to the patient that probiotics are more beneficial isn't constipated type bowel changes rather than diarrhea Plan: MR enterography to look for small bowel disease. At this time do not feel that it is indic ated to do neuroendocrine workup. She was told that she continue to take the Imodium on an as-needed basis. Discontinue probiotic documented in this enc ounter Plan of Treatment +--------+---------+ + + + | Date | Type | Specialty | Care Team | Description | +--------+---------+ + + + | 01/07/ | Office | Neurology | Geo Worley MD [address] | | | 2020 | Visit | | [facility] | | | | | | [address] | | | | | | [place] [address] | | | | | | [phone] | | | | | | | | +--------+---------+ + + + documented as of this encounter Results MRI Enterography w wo Contrast (05/28/2017 10:34 AM PST) + + | Specimen | + + | | + + + + + | Narrative | Performed At | + + + | TECHNIQUE: MRI abdomen, enterography protocol with sequences to | [facility] | | include coronal haste, axial T2, axial T1, coronal T1, and | | | postcontrast coronal and axial T1-weighted images. 7.5 mL Gadavist | | | was administered intravenously. CLINICAL INFORMATION: Diarrhea, | | | weight loss COMPARISON: None available. FINDINGS: IMAGE | | | QUALITY: Small bowel distension: Satisfactory. BOWEL AND | | | MESENTERY: Peristalsis: Oral contrast is identified within the right | | | colon. Bowel wall thickening: None. Enhancement: Normal. Fistula: | | | Absent. Abscess: Absent. Anal fissure: None. Adenopathy: None. | | | Mesentery: Normal appearance. Stomach: Normal. Duodenum: Normal. | | | Colon: Normal. OTHER: Liver: Normal. Gallbladder: Normal. | | | Pancreas: Normal. Spleen: Normal. Adrenals glands: Normal. | | | Kidneys: Nonenhancing bilateral renal cysts. Reproductive organs: | | | Mild prominent appearance of the endometrium. Lung bases: Normal. | | | Bones: Normal. IMPRESSION - No bowel abnormality identified. | | | Mild prominent appearance of the endometrium, recommend clinical | | | correlation. Consider pelvic sonogram for further assessment. | | | Dictated and Signed by: Donnell Crook MD Electronically signed: | | | 05/28/2017 3:09 PM | | + + + + + | Procedure Note | + + | Paddy, Rad Results In - 05/28/2017 3:12 PM PST TECHNIQUE: MRI abdomen, enterography | | protocol with sequences to include coronalhaste, axial T2, axial T1, coronal T1, and | | postcontrast coronal and axialT1-weighted images. 7.5 mL Gadavist was administered | | intravenously.CLINICAL INFORMATION: Diarrhea, weight lossCOMPARISON: None | | available.FINDINGS: IMAGE QUALITY: Small bowel distension: Satisfactory. BOWEL AND | | MESENTERY:Peristalsis: Oral contrast is identified within the right colon.Bowel wall | | thickening: None. Enhancement: Normal. Fistula: Absent.Abscess: Absent.Anal fissure: | | None.Adenopathy: None.Mesentery: Normal appearance.Stomach: Normal. Duodenum: Normal. | | Colon: Normal. OTHER: Liver: Normal. Gallbladder: Normal. Pancreas: Normal. Spleen: | | Normal. Adrenals glands: Normal. Kidneys: Nonenhancing bilateral renal | | cysts.Reproductive organs: Mild prominent appearance of the endometrium.Lung bases: | | Normal. Bones: Normal.IMPRESSION - No bowel abnormality identified.Mild prominent | | appearance of the endometrium, recommend clinical correlation. Consider pelvic sonogram | | for further assessment.Dictated and Signed by: Donnell Crook MD Electronically | | signed: 05/28/2017 3:09 PM | |Enhancement: Normal. | |Fistula: Absent. | |Abscess: Absent. | |Anal fissure: None. | |Adenopathy: None. | |Mesentery: Normal appearance. | |Stomach: Normal. | |Duodenum: Normal. | |Colon: Normal. | | | |OTHER: | |Liver: Normal. | |Gallbladder: Normal. | |Pancreas: Normal. | |Spleen: Normal. | |Adrenals glands: Normal. | |Kidneys: Nonenhancing bilateral renal cysts. | |Reproductive organs: Mild prominent appearance of the endometrium. | |Lung bases: Normal. | |Bones: Normal. | | | | | |IMPRESSION - | |No bowel abnormality identified. | | | |Mild prominent appearance of the endometrium, recommend clinical correlation. | |Consider pelvic sonogram for further assessment. | | | |Dictated and Signed by: Donnell Crook MD | | Electronically signed: 05/28/2017 3:09 PM | + + + +---------+ + + | Performing | Address | City/State/Zipcode | Phone Number | | Organization | | | | + +---------+ + + | [facility] | | | | + +---------+ + + documented in this encounter Visit Diagnoses + + | Diagnosis | + + | Weight loss, unintentional - Primary Loss of weight | + + | Diarrhea, unspecified type | + + documented in this encounter
--- OUTSIDE RECORDS SUMMARY | ~2019-12-18 | XMS | Encounter Summary ---
Demographics + + + | Address | [address] | | | [place] [address] | + + + | Home Phone [...] + + + | Author | [facility] | | | and [place] | + + + | Organization | [facility] | | [...] [place] | | | | | [address] | | + + + + + Care Team Providers + +------+ + | Care Oncology Rn Name | Role | Phone | + +------+ + | Avi Herman MD | PCP | | + +------+ + Encounter Details +--------+ + + + + | Date | Type | Department | Care Team | Description | +--------+ + + + + | 10/29/ | Orders Only | [facility] | Dany Terrazas, | Right knee pain, | | 2018 | | ORTHOPEDIC SURGERY | MD [address] | unspecified | | | | [address] [place] | [place] | chronicity (Primary | | | | [place] | [address] | Dx) | | | | [address] | | | | | | [phone] | | | +--------+ + + + [...] | | 2020 | Visit | | [address] | | | | | | [address] | | | | | | [place] [address] | | | | | | [phone] | | | | | | | | +--------+---------+ + + + documented as of this encounter Results XR Knee Right 3 [...] epiphysis measuring 12, this is new since 2014. Given the | | | patient's age, [...] + | Right knee pain, unspecified chronicity - Primary | + + documented in this encounter
--- OUTSIDE RECORDS SUMMARY | ~2019-12-18 | XMS | Encounter Summary ---
Demographics + + + | Address | [address] | | | [place] [address] | + + + | Home Phone | | + + + | Preferred Language | Unknown | + + + | Marital Status | | + + + | Pentecostalism Affiliation | 1073 | + + + [...] [place] | | | | | [address] | | + + + + + Care Team Providers + +------+ + | Care Substation Operator Chief Name | Role | Phone | + +------+ + | Avi Herman MD | PCP | | + +------+ + Reason for Visit + +--------+ + | Reason | Onset | Comments | | | Date | | + +--------+ + | Imaging Only | 05/03/ | mr enterography May 28 | | | 2017 | | + +--------+ + Encounter Details +--------+ + + + + | Date | Type | Department | Care Team | Description | +--------+ + + + + | 05/03/ | Telephone | [facility] | John Temple MD | Imaging Only (mr | | 2018 | | GASTROENTEROLOGY | [address], [place] | enterography May | | | | [address] [place] | [address] [place], [place] | 2) | | | | [address] [place], [place] | [id number] | | | | | [address] | | | | | | [phone] | | | +--------+ + + + [...] Telephone Encounter - Darlene Barrow RN - 05/04/2017 4:20 PM PSTSpoke with patient and informed her I scheduled her MR enterography for May 28 checking in at 8:30 as she will need to start the drinks two hours prior to a 10:30 MR enterography. No solids 6 h ours prior but clear liquids okay although no dairy and no carbonation. Patient states she has had no further diarrhea since she saw Dr. Temple so she may want to cancel this MR entero graphy. She will see how she does the next week or 2 and if diarrhea returns she will keep appointment for MR enterography. If no further diarrhea she will call to cancel the MR ente rography. She will need Ativan premed to take along to the MR enterography. Patient states she has had no hip surgery. elephone Encounter - Nae Mark - 05/04/2017 3:51 PM PSTPatient called back to schedule her MRI enterography and her Alex's EGD and manometry. Please ana paula mcdowell her back at [phone] signed by Nae Mark at 05/04/2017 3:52 PM PSTTelephone Encounter - Darlene Barrow RN - 05/03/2017 11:49 AM PSTLeft message offe ring May 28 for her MR enterography and we could also schedule her spouse 's EGD and manom etry that day Carrillo mented in this encounter Plan of Treatment +--------+---------+ + + + | Date | Type | Specialty | Care Team | Description | +--------+---------+ + + + | 01/07/ | Office | Neurology | Geo Worley MD [address] | | | 2020 | Visit | | [address] | | | | | | [place] | | | | | | [place] [address] | | | | | | [phone] | | | | | | | | +--------+---------+ + + + documented as of this encounter Visit Diagnoses Not on filedocumented in this encounter
--- OUTSIDE RECORDS SUMMARY | ~2019-12-18 | XMS | Encounter Summary ---
Demographics + + + | Address | [address] | | | [place] [address] | + + + | Home Phone | | + + + | Preferred Language | Unknown | + + + | Marital Status | | + + + | Sabianist Affiliation | 1073 | + + + | Race | White | + + + | Ethnic Group | Not or | + + + Author + + + | Author | [facility] | | | and [place] | + + + | Organization | [facility] | | | [...] [place] | | | | | [address] | | + + + + + Care Team Providers + +------+ + | Care Salesperson [employer] Name | Role | Phone | + +------+ + | Avi Herman MD | PCP | | + +------+ + Encounter Details +--------+ + + + + | Date | Type | Department | Care Team | Description | +--------+ + + + + | 04/21/ | Abstract | [facility] [place] | John Temple MD | | | 2017 | | GASTROENTEROLOGY | [address], [place] | | | | | [address] [place] | [address] [place], [place] | | | | | [address] [place], [place] | [address] | | | | | [address] | | | | | | [phone] | | | +--------+ + + + [...] | | | | | | [place] [address] | | | | | | [phone] | | | | | | | | +--------+---------+ + + + documented as of this encounter Visit Diagnoses Not on filedocumented in this encounter
--- OUTSIDE RECORDS SUMMARY | ~2019-12-18 | XMS | Encounter Summary ---
Demographics + + + | Address | [address] | | | [place] [address] | + + + | Home Phone | | + + + | Preferred Language | Unknown | + + + | Marital Status | | + + + | Worship Affiliation | 1073 | + + + | Race | White | + + + | Ethnic Group | Not or | + + + Author + + + | Author | [facility] | [...] [place] | | | | | [address] | | + + + + + Care Team Providers + +------+ + | Care Environmental Compliance Officer Name | Role | Phone | + [...] Closed | | Radiology | Diagnoses | Mk, | [facility] | | | | | Right knee | Dany Rose MD | [address] | | | | | pain, | [address] | [place], | | | | | unspecified | [place] | [place] | | | | | chronicity | [place] | [address] | | | | | Primary | [address] | Phone: | | | | | osteoarthrit | Phone: | [phone] | | | | | is of right | [phone] | Fax: | | | | | knee | Fax: | [phone] | | | | | Procedures | [phone] | | | | | | MRI Knee | | | | | | | Right w wo | | | | | | | Contrast | | | +--------+--------+ + + + + Reason for Visit Diagnostic/Screening (Routine) +--------+--------+ + + + + | Status | Reason | Specialty | Diagnoses / | Referred By | Referred To | | | | | Procedures | Contact | Contact | +--------+--------+ + + + + | Closed | | Radiology | Diagnoses | Mk, | [facility] | | | | | Right knee | Dany Rose MD | [address] | | | | | pain, | [address] | [place], | | | | | unspecified | [place] | [place] | | | | | chronicity | [place] | [address] | | | | | Primary | [address] | Phone: | | | | | osteoarthrit | Phone: | [phone] | | | | | is of right | [phone] | Fax: | | | | | knee | Fax: | [phone] | | | | | Procedures | [phone] | | | | | | MRI Knee | | | | | | | Right w wo | | | | | | | Contrast | | | +--------+--------+ + + + + Encounter Details +--------+ + + + + | Date | Type | Department | Care Team | Description | +--------+ + + + + | 11/12/ | Hospital | [facility] | Dany Terrazas, | Right knee pain, | | 2018 | Encounter | [facility] [address] | [address] | unspecified | | | | [place], | [place] | chronicity; Primary | | | | [place] [address] | [address] | osteoarthritis of | | | | [phone] | | right knee | +--------+ + + + + Social [...] | | 0 | | | | [id number] | mouth. | | | | | [...] | | | | | | [place] [address] | | | | | | [phone] | | | | | | | | +--------+---------+ + + + documented as of this encounter Procedures + +--------+ + + + | Procedure Name | Priori | Date/Time | Associated Diagnosis | Comments | | | ty | | | | + +--------+ + + + | MRI KNEE RIGHT W WO | Routin | 11/12/2017 | Right knee pain, | Results for this | | CONTRAST | e | 8:09 AM | unspecified | procedure are in the | | | | PDT | chronicity Primary | results section. | | | | | osteoarthritis of | | | | | | right knee | | + +--------+ + + + documented in this encounter Results MRI Knee Right w wo Contrast (11/12/2017 8:09 AM PDT) + + | Specimen | + + | | + + + + + | Narrative | Performed At | + + + | UNENHANCED AND ENHANCED MRI RIGHT KNEE 11/12/2017 7:48 AM | [facility] | | CLINICAL HISTORY: Right Knee Pain- Further Evaluate the Tibial Lesion | | | see on the Xray COMPARISON: Radiographs November 01 and | | | February 2015 TECHNIQUE: The following 3T MR sequences of the | | | right knee were obtained: 1. Coronal T1 and axial T1 with fat | | | suppression. 2. Axial proton density with fat-suppression and | | | sagittal proton density without fat-suppression. 3. Sagittal T2 with | | | fat-suppression. 4. Coronal STIR. 5. Following the uneventful | | | intravenous administration of 6 cc Gadavist, axial, sagittal and | | | coronal fat suppressed T1 sequences were obtained. FINDINGS: A | | | lobulated, circumscribed lesion is present peripherally in the | | | anteromedial tibial plateau, measuring up to 1.2 x 0.8 x 1.5 cm in | | | size, and corresponding with the lytic lesion described on recent | | | radiography. The lesion closely approximates the adjacent tibial | | | cortex, which appears grossly maintained. The contents of the | | | lesion are heterogeneously hyperintense on T2-weighted images, with | | | some thin low signal internal septae suggested. The lesion is | | | homogeneously higher signal than the adjacent marrow on the | | | unenhanced, fat-suppressed T1-weighted images, with smoothly | | | marginated enhancement present predominantly in the inferior aspect | | | of the lesion following contrast administration. Edema and some | | | patchy enhancement of the surrounding marrow is also apparent. An | | | additional 10 mm rounded, fairly circumscribed mixed signal lesion is | | | present in the subarticular, slightly posterior aspect of the medial | | | femoral condyle and demonstrates no visible enhancement or signal | | | alteration involving the adjacent marrow, and corresponds with a | | | stable rounded sclerotic lesion visible on radiography dating back to | | | 2014. An ovoid region of increased T2-weighted signal in the far | | | superior pole of the patella measures up to 1.4 x 0.6 x 0.5 cm and | | | demonstrates no convincing enhancement following contrast | | | administration. Marrow signal is normal elsewhere. No fracture is | | | evident. The anterior and posterior cruciate ligaments, medial | | | collateral ligament and lateral collateral ligamentous complex appear | | | intact and unremarkable, along with the patellar retinacula, | | | patellar tendon and imaged quadriceps tendon. Localized signal | | | alteration involving the free margin of the body and posterior horn | | | of the medial meniscus is suspicious for meniscal tear. The lateral | | | meniscus appears intact and unremarkable. There is moderate, | | | generalized cartilage loss within the medial femorotibial joint | | | compartment. Cartilage within the lateral compartment is | | | maintained. There is mild to moderate cartilage loss involving the | | | patella. A small volume of joint fluid is present. No | | | intra-articular loose body is identified. Soft tissues about the | | | knee are otherwise unremarkable. IMPRESSION - 1. 1.5 CM | | | CIRCUMSCRIBED, SEPTATED AND ECCENTRICALLY ENHANCING LESION IN THE | | | ANTEROMEDIAL ASPECT OF THE TIBIAL PLATEAU, CORRESPONDING WITH A LYTIC | | | LESION DESCRIBED ON RECENT RADIOGRAPHY, WITH EDEMA AND PATCHY | | | ENHANCEMENT OF THE SURROUNDING MARROW. THE CONSTELLATION OF | | | FINDINGS IS CONCERNING FOR INFECTION VERSUS NEOPLASM SUCH | | | METASTASIS OR MYELOMA. TISSUE SAMPLING SHOULD BE CONSIDERED. BONE | | | SCAN AND/OR SCREENING MRI OF THE MARROW MAY BE BENEFICIAL TO | | | EVALUATE FOR THE PRESENCE OF OTHER LESIONS. AN ADDITIONAL SMALL | | | LESION IN THE SUPERIOR POLE OF THE PATELLA DEMONSTRATES NO CONVINCING | | | ENHANCEMENT OR ADJACENT MARROW EDEMA AND IS DIFFICULT TO FURTHER | | | CHARACTERIZE. A NON-ENHANCING LESION IN THE POSTERIOR ASPECT OF THE | | | MEDIAL FEMORAL CONDYLE CORRESPONDS WITH A CHRONIC SCLEROTIC LESION | | | ON PREVIOUS RADIOGRAPHY. 2. PROBABLE TEAR OF THE MEDIAL MENISCUS | | | WITH ASYMMETRIC, GENERALIZED CHONDROMALACIA IN THE MEDIAL | | | FEMOROTIBIAL COMPARTMENT AND SMALL JOINT EFFUSION. Dictated and | | | Signed by: Gume Molina MD Electronically signed: 11/12/2017 9:21 | | | AM | | + + + + + | Procedure Note | + + | Paddy, Rad Results In - 11/12/2017 9:24 AM PDT UNENHANCED AND ENHANCED MRI RIGHT KNEE | | 11/12/2017 7:48 AMCLINICAL HISTORY: Right Knee Pain- Further Evaluate the Tibial Lesion | | see on theXray COMPARISON: Radiographs November 01 and February 2015 TECHNIQUE: The | | following 3T MR sequences of the right knee were obtained:1. Coronal T1 and axial T1 | | with fat suppression.2. Axial proton density with fat-suppression and sagittal proton | | density withoutfat-suppression.3. Sagittal T2 with fat-suppression. 4. Coronal STIR. | | 5. Following the uneventful intravenous administration of 6 cc Gadavist, axial,sagittal | | and coronal fat suppressed T1 sequences were obtained.FINDINGS: A lobulated, | | circumscribed lesion is present peripherally in theanteromedial tibial plateau, | | measuring up to 1.2 x 0.8 x 1.5 cm in size, andcorresponding with the lytic lesion | | described on recent radiography. The lesionclosely approximates the adjacent tibial | | cortex, which appears grosslymaintained. The contents of the lesion are heterogeneously | | hyperintense onT2-weighted images, with some thin low signal internal septae suggested. | | Thelesion is homogeneously higher signal than the adjacent marrow on theunenhanced, | | fat-suppressed T1-weighted images, with smoothly marginatedenhancement present | | predominantly in the inferior aspect of the lesion followingcontrast administration. | | Edema and some patchy enhancement of the surroundingmarrow is also apparent. An | | additional 10 mm rounded, fairly circumscribedmixed signal lesion is present in the | | subarticular, slightly posterior aspect ofthe medial femoral condyle and demonstrates no | | visible enhancement or signalalteration involving the adjacent marrow, and corresponds | | with a stable roundedsclerotic lesion visible on radiography dating back to 2014. An | | ovoid region ofincreased T2-weighted signal in the far superior pole of the patella | | measures upto 1.4 x 0.6 x 0.5 cm and demonstrates no convincing enhancement | | followingcontrast administration. Marrow signal is normal elsewhere. No fracture | | isevident.The anterior and posterior cruciate ligaments, medial collateral ligament | | andlateral collateral ligamentous complex appear intact and unremarkable, alongwith the | | patellar retinacula, patellar tendon and imaged quadriceps tendon. Localized signal | | alteration involving the free margin of the body and posteriorhorn of the medial | | meniscus is suspicious for meniscal tear. The lateralmeniscus appears intact and | | unremarkable. There is moderate, generalizedcartilage loss within the medial | | femorotibial joint compartment. Cartilagewithin the lateral compartment is maintained. | | There is mild to moderatecartilage loss involving the patella. A small volume of joint | | fluid is present. No intra-articular loose body is identified. Soft tissues about the | | knee areotherwise unremarkable.IMPRESSION -1. 1.5 CM CIRCUMSCRIBED, SEPTATED AND | | ECCENTRICALLY ENHANCING LESION IN THEANTEROMEDIAL ASPECT OF THE TIBIAL PLATEAU, | | CORRESPONDING WITH A LYTIC LESIONDESCRIBED ON RECENT RADIOGRAPHY, WITH EDEMA AND PATCHY | | ENHANCEMENT OF THESURROUNDING MARROW. THE CONSTELLATION OF FINDINGS IS CONCERNING FOR | | INFECTIONVERSUS NEOPLASM SUCH METASTASIS OR MYELOMA. TISSUE SAMPLING SHOULD | | BECONSIDERED. BONE SCAN AND/OR SCREENING MRI OF THE MARROW MAY BE BENEFICIAL TOEVALUATE | | FOR THE PRESENCE OF OTHER LESIONS. AN ADDITIONAL SMALL LESION IN THESUPERIOR POLE OF | | THE PATELLA DEMONSTRATES NO CONVINCING ENHANCEMENT OR ADJACENTMARROW EDEMA AND IS | | DIFFICULT TO FURTHER CHARACTERIZE. A NON-ENHANCING LESIONIN THE POSTERIOR ASPECT OF THE | | MEDIAL FEMORAL CONDYLE CORRESPONDS WITH A CHRONICSCLEROTIC LESION ON PREVIOUS | | RADIOGRAPHY.2. PROBABLE TEAR OF THE MEDIAL MENISCUS WITH ASYMMETRIC, | | GENERALIZEDCHONDROMALACIA IN THE MEDIAL FEMOROTIBIAL COMPARTMENT AND SMALL JOINT | | EFFUSION.Dictated and Signed by: Gume Molina MD Electronically signed: 11/12/2017 9:21 | | AM | | | |IMPRESSION - | |1. 1.5 CM CIRCUMSCRIBED, SEPTATED AND ECCENTRICALLY ENHANCING LESION IN THE | |ANTEROMEDIAL ASPECT OF THE TIBIAL PLATEAU, CORRESPONDING WITH A LYTIC LESION | |DESCRIBED ON RECENT RADIOGRAPHY, WITH EDEMA AND PATCHY ENHANCEMENT OF THE | |SURROUNDING MARROW. THE CONSTELLATION OF FINDINGS IS CONCERNING FOR INFECTION | |VERSUS NEOPLASM SUCH METASTASIS OR MYELOMA. TISSUE SAMPLING SHOULD BE | |CONSIDERED. BONE SCAN AND/OR SCREENING MRI OF THE MARROW MAY BE BENEFICIAL TO | |EVALUATE FOR THE PRESENCE OF OTHER LESIONS. AN ADDITIONAL SMALL LESION IN THE | |SUPERIOR POLE OF THE PATELLA DEMONSTRATES NO CONVINCING ENHANCEMENT OR ADJACENT | |MARROW EDEMA AND IS DIFFICULT TO FURTHER CHARACTERIZE. A NON-ENHANCING LESION | |IN THE POSTERIOR ASPECT OF THE MEDIAL FEMORAL CONDYLE CORRESPONDS WITH A CHRONIC | |SCLEROTIC LESION ON PREVIOUS RADIOGRAPHY. | | | |2. PROBABLE TEAR OF THE MEDIAL MENISCUS WITH ASYMMETRIC, GENERALIZED | |CHONDROMALACIA IN THE MEDIAL FEMOROTIBIAL COMPARTMENT AND SMALL JOINT EFFUSION. | | | |Dictated and Signed by: Gume Molina MD | | Electronically signed: 11/12/2017 9:21 AM | + + + +---------+ + + | Performing | Address | City/State/Zipcode | Phone Number | | Organization | | | | + +---------+ + + | [facility] | | | | + +---------+ + + documented in this encounter Visit Diagnoses + + | Diagnosis | + + | Right knee pain, unspecified chronicity | + + | Primary osteoarthritis of right knee Primary localized osteoarthrosis, lower leg | + + documented in this encounter Administered Medications + +--------+ +-------+------+------+ | Medication Order | MAR | Action | Dose | Rate | Site | | | Action | Date | | | | + +--------+ +-------+------+------+ | gadobutrol (GADAVIST) injection | Given | 11/13/19 | 6 mLs | | | | 6 mL 6 mL, Intravenous, ONCE | | 18 8:23 | | | | | PRN, Other, Starting 11/12/17 | | AM PDT | | | | | at 0823, For 1 dose, MRI | | | | | | + +--------+ +-------+------+------+ +---+---+ | | | +---+---+ documented in this encounter
--- OUTSIDE RECORDS SUMMARY | ~2019-12-18 | XMS | Encounter Summary ---
Demographics + + + | Address | [address] | | | [place] [address] | + + + | Home Phone | | + + + | Preferred Language | Unknown | + + + | Marital Status | | + + + | Adventist Affiliation | 1073 | + + + | Race | White | + + + | Ethnic Group | Not or | + + + Author + + + | Author | [facility] | | | and [place] | + + + | Organization | [facility] | | | [...] [place] | | | | | [address] | | + + + + + Care Team Providers + +------+ + | Care Crimping Machine Operator For Metal Name | Role | Phone | + [...] | Dany Rose MD | [address] | | | | | pain, | [address] | [place], | | | | | unspecified | [place] | [place] | | | | | chronicity | [place], [place] | [address] | | | | | Primary | [address] | Phone: | | | | | osteoarthrit | Phone: | [phone] | | | | | is of right | [phone] | Fax: | | | | | knee | Fax: | [phone] | | | | | Procedures | [phone] | | | | | | MRI Knee | | | | | | | Right w wo | | | | | | | Contrast | | | +--------+--------+ + + + + Reason for Visit + + + | Reason | Comments | + + + | New Patient | [employer] Right Knee Pain Onset 09/2015 | + + + Self-referral (Routine) +--------+--------+ + + + + | Status | Reason | Specialty | Diagnoses / | Referred By | Referred To | | | | | Procedures | Contact | Contact | +--------+--------+ + + + + | Closed | | Orthopedic | Diagnoses | | Mk, | | | | Surgery | Right knee | | Dany Rose MD | | | | | pain | | [address] | | | | | | | [place], | | | | | | | [place] [address] | | | | | | | Phone: | | | | | | | [phone] | | | | | | | Fax: | | | | | | | [phone] | +--------+--------+ + + + + Encounter Details +--------+---------+ + + + | Date | Type | Department | Care Team | Description | +--------+---------+ + + + | 11/01/ | Office | [facility] | Dany Terrazas, | Right knee pain, | | 2018 | Visit | ORTHOPEDIC SURGERY | [address] | unspecified | | | | [address] [place] | [place] | chronicity (Primary | | | | [place] | [address] | Dx); Primary | | | | [address] | | osteoarthritis of | | | | [phone] | | right knee | +--------+---------+ + + + Social History [...] + | Weight | 64 kg (141 lb) | 11/01/2017 9:51 AM | | | | | PDT | | + + + + + | Height | 170.2 cm (5' 7") | 11/01/2017 9:51 AM | | | | | PDT | | + + + + + | Body Mass Index | 22.08 | 11/01/2017 9:51 AM | | | | | PDT | | + + + + + documented in this encounter H&P Notes Dany Terrazas MD - 11/01/2017 10:00 AM PDTFormatting of this note might be different fro m the original. 11/01/17 Patient: Bekah Ana Elder History of present illness: Bekah is a 67 y.o. female who presents with a chief complaint r ight knee pain Patient is s/p left knee medial unicompartmental arthroplasty in 2014 and she had it revise d to a total knee arthroplasty in 2016 in [place] due to loosening of the tibia tray report edly She has had increase problems with right knee pain that started 2 wharton ago and is here t o have evaluation and discussion of options She has pain mostly to the medial side of the knee - her symptoms come and go and currently her knee doesn't bother her much When she made the appointment it was much worse - she does have exacerbations and remission s of her pain When it is stirred up she has weight bearing related medial knee pain that is worse with ac tivity throughout the day and generally improved with rest She doesn't have a lot of night pain Past Medical History: Diagnosis Date Anomalous atrioventricular [...] Procedure: COLONOSCOPY; Surgeon: John Temple MD; Location: [facility] KNEE ARTHROSCOPY Left 2011 KNEE JOINT REPLACEMENT Left 08/08/2014 Dr. Beltran TONSILLECTOMY UPPER GASTROINTESTINAL ENDOSCOPY N/A 07/10/2016 Procedure: EGD; Surgeon: John Temple MD; Location: [facility] MEDICAL PROC[facility]URE UN[facility] VAGINA SURGERY Allergies Allergen Reactions Moexipril Hydrochloride Shortness Of Breath AKA Univasc Metoclopramide Other (See Comments) depression Oxycodone Other (See Comments) "makes her crazy" Propafenone Other (See Comments) Did not work for her Afib, she wants this on her allergy list Current Outpatient Prescriptions on File Prior to Visit Medication Sig Dispense Refill Jsvmnwq-Jfjpnykkr-Usqqfne D (CITRACAL SLOW RELEASE) 600-40-500 MG-MG-UNIT TB24 Take 1,5 00 mg by mouth. cholecalciferol (VITAMIN D-3) 400 units TABS Take 400 Units by mouth Daily. estradiol (VAGIFEM) [address] 10 mcg vaginally as needed. ipratropium (ATROVENT) 0.06% nasal spray INSTILL TWO SPRAYS IN EACH NOSTRIL UP TO FOUR TIMES DAILY NEEDED 15 mL 5 Lysine 500 MG CAPS Take 500 mg by mouth Daily. metoprolol succinate (TOPROL-XL) 25 mg 24 hr tablet one tablet by mouth daily 1 mupirocin (BACTROBAN) 2% ointment Apply topically to the nose as directed. 22 g 1 Polyethylene Glycol 400 (BLINK TEARS OP) Apply to eye Daily as needed. rivaroxaban (XARELTO) 20 mg tablet Take 20 mg by mouth Daily. sertraline (ZOLOFT) 50 mg tablet 1 and 1/2 tablet by mouth daily (Patient taking differ ently: Take 75 mg by mouth Daily.) No current facility-administered medications on file prior to visit. 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 Social History Main Topics Smoking status: Former Smoker Packs/day: 1.50 Years: 5.00 Types: Cigarettes Quit date: 03/29/1978 Smokeless tobacco: Never Used Alcohol use 0.6 oz/week 1 Shots of liquor per week Comment: "social drinker" Drug use: No Sexual activity: Not on file Other Topics Concern Not on file Social History Narrative No narrative on file Review of Systems Eyes: [] Double vision [x] Glasses/contacts [] Failing vision Ear/Nose/Throat: [] Frequent Colds [] Sinus Disease [] Nose obstruction [] Sneezing Spells [] Change in taste [] Artificial teeth [] Ears ringing [] Ear pain [] Hearing loss [] Teeth problems [] Hoarseness [] Neck swelling [x] Sore throat [] Congestion [] Nosebleeds [] Nasal allergies Respiratory: [] Asthma/Wheezing [] Pneumonia [] Night sweats [] Shortness of breath [] Chronic cough [] Coughing up blood [] Exposure to tuberculosis Cardiovascular: [] Heart Problems [] Hypertension [] Heart murmur [] Palpitations [] Rheumatic fever [] Phlebitis [] Chest pain [] Ankle swelling [] Leg cramps [] Racin g heart [] Skipping beats [] Blood clots Gastrointestinal: [] Abdominal pain [] Heartburn [] Blood from rectum [] Colitis [] Gallbladder problems [] Troubl e swallowing [] Bloated stomach [] Change in stools [] Vomiting blood [] Nausea [] Hemorrhoids [] Jaundice [ ] Hepatitis [] Diarrhea [] Constipation [] Diverticulitis Urinary Tract: [] Painful urination [] Kidney Stones [] Any urine leakage [] Weak urine stream [] Night urination [] Urine infections [] Bedwetting [] Blood in urine Skin: [] Skin rashes [] Itching/Burning [x] Skin bruises easi ly [] Artificial tanning [] Skin cancer [] Hair loss [] Changes in moles Musculoskeletal: [] Physical handicaps [] Back or shoulder pain []Rheumatoid disease [x] Osteoarthritis [x] Joint pain [] Joint swelling []Gout [] Leg cramps at night Neurological: [] Headaches [] Seizures [] Stroke/TIA [] Faintness [] Tremors [] Numbness [] Dizziness [] Changes in handwriting [] Memory loss [] Shooting pains Psychiatric: [] Depression [] Suicidal thoughts [] Sleep pattern changes [] Appetite changes [] Recent counseling [] Nervousness/anxiety [] Physical violence [] Marital problems Endocrine: [] Thyroid [] Diabetes Systemic: []Weight loss/gain (over 10 lbs) []Fever/chills []Fatigue [] Sleeping Difficulties [] Speech change [] Voice change There were no vitals filed for this visit. Estimated body mass index is 22.08 kg/m as ana paula culated from the following: Height as of this encounter: 1.702 m (5' 7"). Weight as of this encounter: 64 kg (141 lb). On exam left knee with medial arthrotomy scar from her previous TKA She comes into full extension and can flex 120 No instability is detected Right knee with medial joint line tenderness No scars or rashes - modest effusion in pouch No varus or valgus stress instability Negative farrukh and pivot shift xrays reviewed by me and show near bone on bone medial compartment right knee She has a cystic lesion in the subchondral bone of the medial tibia plateau Assessment: medial compartment osteoarthritis right knee The natural history and treatment options discussed at length with her and her walter da silva The role of medial unicompartmental arthroplasty is discussed and given her recent negative experience with that on the left neither she or I are enthusiastic about considering that f or the right knee And so the options are to live with it as best she can and for as long as she can with cons ervative measures until the day comes when she is ready to go through knee replacement Since she hasn't had a perfect result with her left knee TKA and still has intermittent ach iness I think she is a good blocker and polisher of when the right knee symptoms will rise to the level gabi t would make TKA worth it to her At the present time she doesn't think that they are I reviewed her xrays with Dr. Gleason who rec MRI of the knee to better assess the lesion i n the medial tibia lesion This note was copied by office staff from an external medical record. It was written by the provider listed and the pasted text includes the patient name, date of , and original electronic notation of signature by the author.Electronically signed by MD madison Ramirez t 11/02/2017 1:04 PM PDTdocumented in this encounter Miscellaneous Notes Addendum Note - Dany Terrazas MD - 11/01/2017 10:00 AM PDT Addended by: DANY TERRAZAS on: 11/03/2017 17:16 Modules accepted: Orders ddendum Note - Dany Ventura MD - 11/01/2017 10:00 AM PDT Addended by: DANY TERRAZAS on: 11/03/2017 12:53 Modules accepted: Orders documented in this encounter Plan of Treatment +--------+---------+ + + + | Date | Type | Specialty | Care Team | Description | +--------+---------+ + + + | 01/07/ | Office | Neurology | Geo Worley MD [address] | | | 2020 | Visit | | [address] | | | | | | [address] [place], | | | | | | [place] [address] | | | | | | [phone] | | | | | | | | +--------+---------+ + + + documented as of this encounter Results MRI Knee Right w [...] | Procedure Note | + + | Neel Thomason Results In - 11/12/2017 9:24 AM PDT [...] unspecified chronicity - Primary | + + | Primary osteoarthritis of right knee Primary localized osteoarthrosis, lower leg | + + documented in this encounter
--- OUTSIDE RECORDS SUMMARY | ~2019-12-18 | XMS | Encounter Summary ---
Demographics + + + | Address | [address] | | | [place] [address] | + + + | Home Phone | | + + + | Preferred Language | Unknown | + + + | Marital Status | | + + + | Shinto Affiliation | 1073 | + + + | Race | White | + + + | Ethnic Group | Not or | + + + Author + + + | Author | [facility] | | | and [place] | + + + | Organization | [facility] | | [...] [place] | | | | | [address] | | + + + + + Care Team Providers + +------+ + | Care Neuro Urologist Name | Role | Phone | + +------+ + PCP | Unavailable | + +------+ + Encounter Details +--------+ + + + + | Date | Type | Department | Care Team | Description | +--------+ + + + + | 01/23/ | Hospital | [facility] | | | | 2002 | Encounter | MED CTR XRAY [address] | | | | | | [place] | | | | | | [place] [address] | | | | | | [phone] | | | +--------+ + + + [...] | | | | | | [place] [address] | | | | | | [phone] | | | | | | | | +--------+---------+ + + + documented as of this encounter Visit Diagnoses Not on filedocumented in this encounter"
--- OUTSIDE RECORDS SUMMARY | ~2019-12-18 | XMS | Encounter Summary ---
Demographics + + + | Address | [address] | | | [place] [address] | + + + | Home Phone | | + + + | Preferred Language | Unknown | + + + | Marital Status | | + + + | Evangelical Affiliation | 1073 | + + + | Race | White | + + + | Ethnic Group | Not or | + + + Author + + + | Author | [facility] | | | and [place] | + + + | Organization | [facility] | | [...] [place] | | | | | [address] | | + + + + + Care Team Providers + +------+ + | Care Wrapping Checker Name | Role | Phone | + +------+ + | Avi Herman MD | PCP | | + +------+ + Reason for Visit + +--------+ + | Reason | Onset | Comments | | | Date | | + +--------+ + | Appointment | 04/30/ | paola munoz with propofol | | | 2015 | | + +--------+ + Encounter Details +--------+ + + + + | Date | Type | Department | Care Team | Description | +--------+ + + + + | 04/30/ | Telephone | [facility] | John Temple MD | Appointment | | 2015 | | GASTROENTEROLOGY | [address], [place] | (egd,colon with | | | | [address] [place] | [address] [place], [place] | propofol) | | | | [address] [place], [place] | [address] | | | | | [address] | | | | | | [phone] | | | +--------+ + + + [...] Telephone Encounter - Darlene Barrow RN - 04/30/2015 10:18 AM PSTWendycy was in the of fice seeing Dr. Abad and asked to speak to Doctor Temple's nurse regarding scheduling EGD an d colon with propofol. Reviewed chart and Doctor Temple felt patient needed to see Dr. Herman or senior software quality engineer before scheduling procedures due to onset of atrial fib. Patient states she will be seeing Dr. Herman next week. She will have him send records after the evaluation. P ashely just wanted to make sure that she got the procedures done by Dr Temple. Will await rec ords discussing atrial fib. 1 0:20 AM PSTdocumented in this encounter Plan of Treatment +--------+---------+ + + + | Date | Type | Specialty | Care Team | Description | +--------+---------+ + + + | 01/07/ | Office | Neurology | Geo Worley MD [address] | | | 2020 | Visit | | [employer] | | | | | | [place], | | | | | | [place] [address] | | | | | | [phone] | | | | | | | | +--------+---------+ + + + documented as of this encounter Visit Diagnoses Not on filedocumented in this encounter
--- OUTSIDE RECORDS SUMMARY | ~2019-12-18 | XMS | Encounter Summary ---
Demographics + + + | Address | [address] | | | [place] [address] | + + + | Home Phone | | + + + | Preferred Language | Unknown | + + + | Marital Status | | + + + | Nondenominational Affiliation | 1073 | + + + | Race | White | + + + | Ethnic Group | Not or | + + + Author + + + | Author | [facility] | | | and [place] | + + + | Organization | [facility] | | | and [...] [place] | | | | | [address] | | + + + + + Care Team Providers + +------+ + | Care Hr Internship Name | Role | Phone | + +------+ + | Hector Nielsen MD | PCP | | + +------+ + Reason for Visit + + + | Reason | Comments | + + + | New Patient | NEW PATIENT | + + + Evaluate & Treat (Urgent) + +--------+ + + + + | Status | Reason | Specialty | Diagnoses / | Referred By | Referred To | | | | | Procedures | Contact | Contact | + +--------+ + + + + | Authorized | | Cardiology | Diagnoses | Gia, | Sandip, | | | | | Other | Hector Snider, | DO Grant | | | | | specified | [address] | [address] | | | | | anxiety | [address] | [address] | | | | | disorders | [place], | [place], [place] | | | | | Procedures | [place] [address] | [address] Phone: | | | | | Consult | Phone: | [phone] | | | | | | [phone] | Fax: | | | | | | Fax: | [phone] | | | | | | [phone] | | + +--------+ + + + + Encounter Details +--------+---------+ + + + | Date | Type | Department | Care Team | Description | +--------+---------+ + + + | 07/26/ | Office | [facility] | Grant Oropeza DO | PAROXYSMAL ATRIAL | | 2020 | Visit | CARDIOLOGY [place] | [address] | FIBRILLATION | | | | [address] | [place], [place] | (Primary Dx); | | | | [address] | [address] | Paroxysmal atrial | | | | [place], [place] | | fibrillation (HCC) | | | | [address] | | | | | | [phone] | | | +--------+---------+ + + + [...] + + + | Blood Pressure | 140/66 | 07/27/2019 3:15 PM | | | | | PDT | | + + + + + | Pulse | 54 | 07/27/2019 3:15 PM | | | | | PDT | | + + + + + | Temperature | - | - | | + + + + + | Respiratory Rate | - | - | | + + + + + | Oxygen Saturation | 98% | 07/27/2019 3:15 PM | | | | | PDT | | + + + + + | Inhaled Oxygen | - | - | | | Concentration | | | | + + + + + | Weight | 62.1 kg (137 lb) | 07/27/2019 3:15 PM | | | | | PDT | | + + + + + | Height | 167.6 cm (5' 6") | 07/27/2019 3:15 PM | | | | | PDT | | + + + + + | Body Mass Index | 22.11 | 07/27/2019 3:15 PM | | | | | PDT | | + + + + + documented in this encounter Progress Notes OropezaGrant roque, - 07/27/2019 2:20 PM PDT [facility] Cardiology Cardiology Consult Note Reason for Consultation: CP/HTN Requesting Physician: Hector Nielsen History Obtained From: CP HISTORY OF PRESENT ILLNESS: Cardiac Problem List 1. Paroxysmal Atrial fibrillation/flutter- followed by Dr. Bob- [facility] -April 2008 started on flecainide Side effects with flecainide and switched to amiodarone 02/15/2011 atrial fibrillation ablation, Dr. Bob 07/10/2016 atrial flutter diagnosed 03/10/2018 repeat ablation and reisolation of pulmonary veins, ablation of low voltage regions on the left atrial septum, ablation of a right and left atrial tachycardia 2. PVCs 3. HLD Non Cardiac Problem List Mild cognitive decline Anxiety/Depression The patient is a very pleasant 68-year-old female, who presents to the Cardiology office fo r initial consultation due to chest discomfort. The patient has a history of paroxysmal atr ial fibrillation and has undergone 2 EP studies with subsequent pulmonary vein isolation. S he reports that since her second ablation procedure, she has not had any episodes of atrial fibrillation whatsoever. She is currently followed by Electrophysiology at [facility]. Recently, she has noticed some intermittent chest discomfort, which is intermitten t throughout the day. It is described as a dull substernal chest pain. She believes that i t may be related to drinking up to 6 cups of coffee a day. The patient has been suffering s ome issues with short-term memory loss recently. Her mother did have a history of Alzheimer 's disease. She has been worked up by Neurology. She walks about 1.5 miles per day and alatorre s not noticed any association of the chest pain with exertion. She has not noticed any valderrama ge in the pain with deep breathing or with position. The pain typically lasts a few minutes and subsides spontaneously. She has been getting it a couple of times per week. She denie s any episodes of syncope or presyncope. She denies any lower extremity swelling, orthopnea , PND. Review of Systems Constitutional: Negative for fatigue. HENT: Negative for nosebleeds. Eyes: Negative for visual disturbance. Respiratory: Negative for cough and shortness of breath. Cardiovascular:see HPI Gastrointestinal: Negative for nausea, vomiting, abdominal pain and blood in stool. Genitourinary: Negative for hematuria or dysuria. Musculoskeletal: Negative for myalgias, back pain and arthralgias. Skin: Negative for color change. Neurological: Negative for dizziness, syncope and numbness. Positive for mild cognitive dec line. Hematological: Does not bruise/bleed easily. Psychiatric/Behavioral: The patient is not nervous/anxious. PAST MEDICAL & SURGICAL HISTORY Past Medical History: Diagnosis Date Anomalous atrioventricular [...] Procedure: COLONOSCOPY; Surgeon: John Temple MD; Location: [facility] MEDICAL PROCEDURE UNIT KNEE ARTHROSCOPY Left 2011 KNEE JOINT REPLACEMENT Left 08/08/2014 Dr. Beltran TONSILLECTOMY UPPER GASTROINTESTINAL ENDOSCOPY N/A 07/10/2016 Procedure: EGD; Surgeon: John Temple MD; Location: [facility] MEDICAL PROCEDURE UNIT VAGINA SURGERY MEDICATIONS Home Medications Outpatient Encounter Medications as of 07/27/2019 Medication Sig Dispense Refill Aggfcgs-Rwrolajps-Ygmwtam D (CITRACAL SLOW RELEASE) 600-40-500 MG-MG-UNIT TB24 Take 1,5 00 mg by mouth. cholecalciferol (VITAMIN D-3) 400 units TABS Take 400 Units by mouth Daily. citalopram (CELEXA) 20 mg tablet Take 20 mg by mouth Daily. ipratropium (ATROVENT) 0.06% nasal spray INSTILL TWO SPRAYS IN EACH NOSTRIL UP TO FOUR TIMES DAILY NEEDED 15 mL 5 [DISCONTINUED] metoprolol succinate (TOPROL-XL) 25 mg 24 hr tablet one tablet by mouth daily 1 [DISCONTINUED] mupirocin (BACTROBAN) 2% ointment Apply topically to the nose as directe d. 22 g 1 Polyethylene Glycol 400 (BLINK TEARS OP) Apply to eye Daily as needed. [DISCONTINUED] sertraline (ZOLOFT) 50 mg tablet 1 and 1/2 tablet by mouth daily (Patien t not taking: Reported on 07/27/2019) No facility-administered encounter medications on file as of 07/27/2019. Allergies Allergies Allergen Reactions Moexipril Hydrochloride Shortness Of Breath AKA Univasc Metoclopramide Other (See Comments) depression Oxycodone Other (See Comments) "makes her crazy" Propafenone Other (See Comments) Did not work for her Afib, she wants this on her allergy list FAMILY HISTORY Family History Problem Relation Age of Onset Heart attack Father Osteoarthritis Father Hypertension Father Muscle disease Father Kidney disease Father Gout Father Osteoporosis Mother Dementia Mother Other (see comment) Mother PAF Hypertension Mother Muscle disease Mother Kidney disease Mother Heart attack Mother Cancer Mother Hypertension Other Sibling history Heart attack Other Sibling history Muscle disease Other Sibling history Kidney disease Other Sibling history SOCIAL HISTORY Social History Socioeconomic History Marital status: Spouse name: Not on file Number of children: Not on file Years of education: Not on file Highest education level: Not on file Occupational History Occupation: Retired [employer] Social Needs Financial resource strain: Not on file Food insecurity: Worry: Not on file Inability: Not on file Transportation needs: Medical: Not on file Non-medical: Not on file Tobacco Use Smoking status: Former Smoker Packs/day: 1.50 Years: 5.00 Pack years: 7.50 Types: Cigarettes Last attempt to quit: 03/29/1978 Years since quittin.3 Smokeless tobacco: Never Used Substance and Sexual Activity Alcohol use: Yes Alcohol/week: 1.0 standard drinks Types: 1 Shots of liquor per week Comment: "social drinker" Drug use: No Sexual activity: Not on file Lifestyle Physical activity: Days per week: Not on file Minutes per session: Not on file Stress: Not on file Relationships Social connections: Talks on phone: Not on file Gets together: Not on file Attends oriental orthodox service: Not on file Active member of club or organization: Not on file Attends meetings of clubs or organizations: Not on file Relationship status: Not on file Intimate partner violence: Fear of current or ex partner: Not on file Emotionally abused: Not on file Physically abused: Not on file Forced sexual activity: Not on file Other Topics Concern Not on file Social History Narrative Not on file PHYSICAL EXAM Vital Signs: BP 140/66 | Pulse 54 | Ht 1.676 m (5' 6") | Wt 62.1 kg (137 lb) | SpO2 98% | BMI 22.11 kg/m Physical Exam GENERAL: Well developed, well nourished, in no distress. Appears approximately stated age . HEENT: Normocephalic, atraumatic. EYES: PERRL, sclerae anicteric, no xanthelsasmas NECK: No JVD, lymphadenopathy, thyromegaly, bruits. Carotid pulses are 2+ bilaterally LUNGS: Clear bilaterally, with no rales, rhonchi or wheezing noted, respirations unlabored HEART: Nondisplaced PMI, regular rate and rhythm, S1, S2 normal. No murmurs, rubs or gall ops noted. ABDOMEN: Soft, nontender, no organomegaly, masses or bruits. Bowel sounds are normal in a ll 4 quadrants. EXTREMITIES: No edema. Radial pulses 2+ bilaterally. DP and PT pulses are 2+ bilaterally. SKIN: Warm and dry, capillary refill is normal, no lesions. NEUROLOGIC: Awake, alert and oriented x 3. No focal motor deficits. PSYCHIATRIC: Appropriate, affect appears normal DATA No results found for: WBC, HGB, HCT, PLTNo results found for: INR, PTT No results found for : NA, K, CL, CO2, BUN, CREA, GLUCOSE, MG, AST, ALT, DIGOXIN, BNP, TSHNo results found for: C HOL, TRIG, HDL, LDL, TSH EKG: Last Echo: 04/2013 Conclusions: 1) Normal left ventricular size and systolic function. EJECTION FRACTION is 65 to 70%. No left ventricular segmental wall motion abnormalities. 2) Normal right ventricular size and systolic function. Possible mild hypokinesis of the RV apex. 3) Ascending aorta diameter is at upper limits of normal at 3.6 cm. 4) Borderline anterior mitral valve leaflet prolapse. Trivial mitral regurgitation. 5) Trace aortic regurgitation. 6) No pericardial effusion seen. 7) Dilated inferior vena cava. Greater than 50% inspiratory change in the inferior vena cava dimension. No comparison study. Last stress test: 05/15/13 CONCLUSIONS: 1.Normal coronary arteries 2.False positive stress test. Last cath: Carotid US: AAA screening: Lower extremity US: OTHERS: 03/11/18 EPS and Ablation FINAL IMPRESSIONS: 1. Baseline sinus bradycardia. 2. Normal atrioventricular node physiology. 2a. Retrograde atrioventricular node conduction was present. 3. Normal infranodal conduction. 4. 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 Re-isolation of the pulmonarly veins 6. Ablation of low voltage regions on the left atrial septum 7. Ablation of septal right and left atrial tachycardia 8. 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 Chest pain 2. Paroxysmal Atrial fibrillation/flutter- followed by Dr. Bob- [facility] -April 2008 started on flecainide Side effects with flecainide and switched to amiodarone 02/15/2011 atrial fibrillation ablation, Dr. Bob 07/10/2016 atrial flutter diagnosed 03/10/2018 repeat ablation and reisolation of pulmonary veins, ablation of low voltage regions on the left atrial septum, ablation of a right and left atrial tachycardia 3. PVCs 4. HLD 5. Mild cognitive decline 6. Anxiety/Depression -The patient is a 68 male who presents to the cardiology office for initial consultation re garding chest pain. Her chest pain has both typical and atypical features. She also has a past medical history of atrial fibrillation and is followed by cardiology, EP at [facility] in [place]. She is presently not on anticoagulation. She has any paroxysms of atrial fib rillation recently. - Obtain an EKG exercise stress test - Continue follow up with EP as scheduled. - Follow up in 4 weeks Thank you for allowing me to participate in the care of this patient. Primary Care Physician: MD Grant Chairez DO 07/30/2019 documented in this enco unter Plan of Treatment +--------+---------+ + + + | Date | Type | Specialty | Care Team | Description | +--------+---------+ + + + | 01/07/ | Office | Neurology | Geo Worley MD [address] | | | 2019 | Visit | | [address] | | | | | | [address] [place], | | | | | | [place] [address] | | | | | | [phone] | | | | | | | | +--------+---------+ + + + + +------+--------+ + + | Name | Type | Priori | Associated Diagnoses | Order Schedule | | | | ty | | | + +------+--------+ + + | Stress ECG | ECG | Routin | PAROXYSMAL ATRIAL | Expected: | | | | e | FIBRILLATION | 08/03/2019, Expires: | | | | | | 07/26/2020 | + +------+--------+ + + documented as of this encounter Procedures + +--------+ + + + | Procedure Name | Priori | Date/Time | Associated Diagnosis | Comments | | | ty | | | | + +--------+ + + + | ECG 12 LEAD | Routin | 07/27/2019 | PAROXYSMAL ATRIAL | Results for this | | | e | 3:26 PM | FIBRILLATION | procedure are in the | | | | PDT | | results section. | + +--------+ + + + documented in this encounter Results ECG 12 lead (07/27/2019 3:26 PM PDT) + + + + + + | Component | Value | Ref Range | Performed | Pathologist | | | | | At | Signature | + + + + + + | VENTRICULAR | 51 | BPM | [facility] | | | RATE EKG | | | | | + + + + + + | ATRIAL RATE | 51 | BPM | [facility] | | + + + + + + | P-R | 194 | ms | [facility] | | | INTERVAL | | | | | + + + + + + | QRS | 88 | ms | [facility] | | | DURATION | | | | | + + + + + + | Q-T | 444 | ms | [facility] | | | INTERVAL | | | | | + + + + + + | Q-T | 409 | ms | [facility] | | | INTERVAL | | | | | | (CORRECTED) | | | | | + + + + + + | P WAVE AXIS | 87 | degrees | [facility] | | + + + + + + | QRS AXIS | 100 | degrees | [facility] | | + + + + + + | T AXIS | 61 | degrees | [facility] | | + + + + + + | INTERPRETAT | Sinus bradycardiaSeptal | | [facility] | | | ION TEXT | infarct , age | | | | | | undeterminedAbnormal | | | | | | ECGNo previous ECGs | | | | | | availableConfirmed by | | | | | | GRANT OROPEZA MD ([id number]) | | | | | | on 08/01/2019 7:54:30 AM | | | | + + + + + + + + | Specimen | + + | | + + + + + | Narrative | Performed At | + + + | | | + + + + +---------+ + + | Performing | Address | City/State/Zipcode | Phone Number | | Organization | | | | + +---------+ + + | [facility] | | | | + +---------+ + + documented in this encounter Visit Diagnoses + + | Diagnosis | + + | PAROXYSMAL ATRIAL FIBRILLATION - Primary Atrial fibrillation | + + documented in this encounter
--- OUTSIDE RECORDS SUMMARY | ~2019-12-18 | XMS | Encounter Summary ---
Demographics + + + | Address | [address] | | | [place] [address] | + + + | Home Phone | | + + + | Preferred Language | Unknown | + + + | Marital Status | | + + + | Advent Affiliation | 1073 | + + + | Race | White | + + + | Ethnic Group | Not or | + + + Author + + + | Author | [facility] | | | and [place] | + + + | Organization | [facility] | | | [...] [place] | | | | | [address] | | + + + + + Care Team Providers + +------+ + | Care Frame Maker Name | Role | Phone | + +------+ + | Avi Herman MD | PCP | | + +------+ + Reason for Visit + + + | Reason | Comments | + + + | New Patient | Blood blister under tongue | + + + Evaluate & Treat (Routine) +--------+--------+ + + + + | Status | Reason | Specialty | Diagnoses / | Referred By | Referred To | | | | | Procedures | Contact | Contact | +--------+--------+ + + + + | Closed | | Otolaryngolog | Diagnoses | Sitz, | Pa Abad | | | | y | blood | Avi | MD [address] | | | | | wandy | MD [place] | [address] | | | | | under | [address] | [address] [place] | | | | | tounge/pt/st | [place] | [place] | | | | | [facility]si | [address] | [address] Phone: | | | | | tz referred | [place], | [phone] | | | | | Procedures | [place] | Fax: | | | | | NEW PATIENT | [address] | [phone] | | | | | | Phone: | | | | | | | [phone] | | | | | | | Fax: | | | | | | | [phone] | | +--------+--------+ + + + + Encounter Details +--------+---------+ + + + | Date | Type | Department | Care Team | Description | +--------+---------+ + + + | 03/09/ | Office | [facility] | Pa Abad MD | Allergic rhinitis, | | 2013 | Visit | OTOLARYNGOLOGY [address] | [address] | cause unspecified | | | | [address] | [address] [place] | (Primary Dx); | | | | [place] | [address] | Neoplasm of | | | | [address] | | uncertain behavior | | | | [phone] | | of lip, oral cavity, | | | | | | and pharynx | +--------+---------+ + + + Social History [...] + + + + | Pulse | 60 | 03/09/2014 9:16 AM | | | | | PST [...] Weight | 61.2 kg (135 lb) | 03/09/2014 9:16 AM | | | | | PST | | + + + + + | Height | 170.2 cm (5' 7") | 03/09/2014 9:16 AM | | | | | PST | | + + + + + | Body Mass Index | 21.14 | 03/09/2014 9:16 AM | | | | | PST | | + + + + + documented in this encounter Progress Notes Pa Abad MD - 03/09/2014 12:13 PM PSTSee dictation #[id number] signed by Pedro Abad MD at 03/09/2014 12:18 PM aP Contreras MD - 03/09/2014 12:00 AM [facility]UDIOLOGY [address] [place] [address] FAX: [phone] OFFICE VISIT NEW PATIENT VISIT The patient comes in with multiple concerns. 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 It is always a little irritable,. It is drippy and it runs. She is concerned if it may be back, although she has had 2 negative cultures that show that it is not presen t. She has a small blood blister on the area under her tongue on the left side. This occurr ed here back 3 or 4 days ago and would like to have that examined. She has a couple of grow ths on the right cheek that she often bites on. She also at times her tongue will get irrit ated and have a strip along the edge that turns whitish in its appearance. It comes and goe s and seems to be aggravated if she takes some kind of acidy type of foods. No other compla ints at the current time. EXAMINATION GENERAL: Examination shows an alert 63-year-old female patient. She is communicating well. Her voice quality was good. HEENT: Skin of the face, nose, and ears all appear to be healthy. Parotid and submandibular glands were smooth. Ear canals are open, they are clean. Drums were clear. Facial movement symmetrical. Nasal passages: There is no obstruction, no mass or lesion, no pustules. She has a little red on the outside where she continues to drip on a regular basis. NECK: Smoo th. There are no masses or lymphadenopathy. Thyroid gland was smooth and trachea is midline . Her tongue was very normal-appearing at the current time. Underneath the tongue on the Wha rton's duct on the left-hand side there is a small bruise and question if perhaps a stone h ad come through this area. It was palpated and no stone was felt to be there currently. Flui d seems to come out of it normally. She has 2 traumatic areas where there is a fibrous type of growth off the buccal mucosa on the right-hand side. Both of these are in areas where s he would tend to bite on it. She also has a fresh bite area in the left buccal mucosa. IMPRESSION 1. VASOMOTOR RHINORRHEA. 2. FLOOR OF THE MOUTH CONTUSION. 3. TWO GROWTHS ON THE RIGHT BUCCAL MUCOSAL AREA THAT APPEAR TO BE BENIGN. She desires to h ave them removed and this is scheduled accordingly. She was advised to let the bruised area heal and see if anything else continues. She is giv en a prescription of Atrovent to dry up the drippy nose to see if this will help. When she is seen back to have the growth removed in her mouth then it will be an indication if the A trovent is working and the blister area will be reexamined. She is advised to use some yogu rt with active bacteria to try to keep her mouth in balance and hopefully whatever is going on with the tongue may well be related to yeast. Pa Abad MD GM / PAP JOB #: [id number] signed by Pa Abad MD at 03/12/2014 8:25 AM PSTdocumenterik d in this encounter Plan of Treatment +--------+---------+ + + + | Date | Type | Specialty | Care Team | Description | +--------+---------+ + + + | 01/07/ | Office | Neurology | Geo Worley MD [address] | | | 2019 | Visit | | [address] | | | | | | [address] [place] | | | | | | [place] [address] | | | | | | [phone] | | | | | | | | +--------+---------+ + + + documented as of this encounter Visit Diagnoses + + | Diagnosis | + + | Allergic rhinitis, cause unspecified - Primary | + + | Neoplasm of uncertain behavior of lip, oral cavity, and pharynx | + + documented in this encounter
--- OUTSIDE RECORDS SUMMARY | ~2019-12-18 | XMS | Encounter Summary ---
Demographics + + + | Address | [address] | | | [place] [address] | + + + | Home Phone | | + + + | Preferred Language | Unknown | + + + | Marital Status | | + + + | Baptism Affiliation | 1073 | + + + | Race | White | + + + | Ethnic Group | Not or | + + + Author + + + | Author | [facility] | | | and [place] | + + + | Organization | [facility] | | | [...] [place] | | | | | [address] | | + + + + + Care Team Providers + +------+ + | Care Locks Tender Name | Role | Phone | + +------+ + | Avi Herman MD | PCP | | + +------+ + Reason for Visit + +--------+ + | Reason | Onset | Comments | | | Date | | + +--------+ + | Imaging Only | 11/04/ | | | | 2017 | | + +--------+ + Encounter Details +--------+ + + + + | Date | Type | Department | Care Team | Description | +--------+ + + + + | 11/04/ | Telephone | [facility] | Dany Terrazas, | Imaging Only | | 2018 | | ORTHOPEDIC SURGERY | [address] | | | | | [address] | [place] | | | | | [place] | [address] | | | | | [address] | | | | | | [phone] | | | +--------+ + + + [...] Encounter - Alessia Taylor Cert MA - 11/04/2017 11:51 AM PDTNancy was n otified per that unfortunately it was our radiologist who saw the lesion and was requesting further evaluation to figure out what is going on with her leg. However, If she h as it done in [place] our radiologist is not going to read imaging done at another facilit y. She would then be trusting that the radiologist's findings there. She was told it is up t o her on how she would like to proceed forward. She would like to continue to proceed forward here. She was transferred over to Imaging to schedule her MRI. 11: 53 AM PDTTelephone Encounter - Ana Lilia Bolanos - 11/04/2017 11:30 AM PDTPatient called cora mckee to have MRI scheduled in [place]. Please advise and call [phone]. documented in this encounter Plan of Treatment +--------+---------+ + + + | Date | Type | Specialty | Care Team | Description | +--------+---------+ + + + | 01/07/ | Office | Neurology | Geo Worley MD [address] | | | 2020 | Visit | | [employer] [facility] | | | | | | [address] [place], | | | | | | [place] [address] | | | | | | [phone] | | | | | | | | +--------+---------+ + + + documented as of this encounter Visit Diagnoses Not on filedocumented in this encounter
--- OUTSIDE RECORDS SUMMARY | ~2019-12-18 | XMS | Encounter Summary ---
Demographics + + + | Address | [address] | | | [place] [address] | + + + | Home Phone | | + + + | Preferred Language | Unknown | + + + | Marital Status | | + + + | Restorationism Affiliation | 1073 | + + + | Race | White | + + + | Ethnic Group | Not or | + + + Author + + + | Author | [facility] | | | and [place] | + + + | Organization | [facility] | | | [...] [place] | | | | | [address] | | + + + + + Care Team Providers + +------+ + | Care Garment Cutter Name | Role | Phone | + +------+ + | Avi Herman MD | PCP | | + +------+ + Reason for Visit + +--------+ + | Reason | Onset | Comments | | | Date | | + +--------+ + | Results, Imaging | 07/14/ | paola munoz | | | 2016 | | + +--------+ + Encounter Details +--------+ + + + + | Date | Type | Department | Care Team | Description | +--------+ + + + + | 07/14/ | Telephone | [facility] | John Temple MD | Results, Imaging | | 2017 | | GASTROENTEROLOGY | [address], [place] | (egd,colon) | | | | [address] [place] | [address] [place], [place] | | | | | [address] [place], [place] | [address] | | | | | [address] | | | | | | [phone] | | | +--------+ + + + [...] Telephone Encounter - Darlene Barrow RN - 07/15/2016 10:42 AM PDTNotified patient th at H Pylori biopsy from stomach was negative. Duodenal biopsies normal. Esophageal biopsie s show mild reflux. Biopsies from right and left colon normal. Stool culture positive for Campylobacter. Patient reports watery stools continue intermittently. We will treat Campyl obacter with a azithromycin 500 mg 1 by mouth daily for 3 days. Patient is in [place] so az ithromycin ordered at [facility] in [facility]. Discussed Campylobacter briefly and patien t states she does eat a lot of chicken but she will consider having their well checked as he r has intermittent diarrhea as well. She will call if further diarrhea. elephone Encoun ter - Darlene Barrow RN - 07/15/2016 9:34 AM PDTLeft message asking patient to call for results. Biopsies negative but stool culture positive for Campylobacter. elephone Encounter - Tylor Barrow RN - 07/14/2016 9:28 AM PDTLeft message asking patient to call for results. St ool studies positive for Campylobacter. If diarrhea continues treat with azithromycin 500 m g daily for 3 days Tdocumented in this encounter Plan of Treatment +--------+---------+ + + + | Date | Type | Specialty | Care Team | Description | +--------+---------+ + + + | 01/07/ | Office | Neurology | Geo Worley MD [address] | | | 2020 | Visit | | [address] | | | | | | [place], | | | | | | [place] [address] | | | | | | [phone] | | | | | | | | +--------+---------+ + + + documented as of this encounter Visit Diagnoses Not on filedocumented in this encounter
--- OUTSIDE RECORDS SUMMARY | ~2019-12-18 | XMS | Encounter Summary ---
Demographics + + + | Address | [address] | | | [place] [address] | + + + | Home Phone | | + + + | Preferred Language | Unknown | + + + | Marital Status | | + + + | Anabaptist Affiliation | 1073 | + + + | Race | White | + + + | Ethnic Group | Not or | + + + Author + + + | Author | [facility] | | | and [place] | + + + | Organization | [facility] | | [...] [place] | | | | | [address] | | + + + + + Care Team Providers + +------+ + | Care Food Order Delivery Runner Name | Role | Phone | + +------+ + | Avi Herman MD | PCP | | + +------+ + Reason for Visit Diagnostic/Screening (Routine) +--------+--------+ + + + + | Status | Reason | Specialty | Diagnoses / | Referred By | Referred To | | | | | Procedures | Contact | Contact | +--------+--------+ + + + + | Closed | | Radiology | Diagnoses | Mk | [facility] | | | | | Bone lesion | Dany Rose MD | Medicine | | | | | Abnormal | [address] | [address] | | | | | MRI | [place] | [place], | | | | | Procedures | [place], [place] | [place] | | | | | NM Bone Scan | [id number] | [address] | | | | | 3 Phase | Phone: | Phone: | | | | | | [phone] | [phone] | | | | | | Fax: | Fax: | | | | | | [phone] | [phone] | +--------+--------+ + + + + Encounter Details +--------+ + + + + | Date | Type | Department | Care Team | Description | +--------+ + + + + | 12/21/ | Hospital | [facility] | Dany Terrazas, | | | 2018 | Encounter | [facility] | [address] | | | | | MEDICINE [address] | [place], [place] | | | | | [place], | [address] | | | | | [place] [address] | | | | | | [phone] | | | +--------+ + + + [...] | | 0 | | | | Azokuxk-Zdwyevvbc-Ot | mouth. | | | | | [...] + + | sertraline | 1 and 1 tablet by | | 0 | 12/09/19 [...] | +--------+---------+ + + + | 01/07/ Office | Neurology | Geo Worley MD [address] | | | 2020 | Visit | | [address] | | | | | | [place] | | | | | | [place] [address] | | | | | | [phone] | | | | | | | | +--------+---------+ + + + documented as of this encounter Procedures + +--------+ + + + | Procedure Name | Priori | Date/Time | Associated Diagnosis | Comments | | | ty | | | | + +--------+ + + + | NM BONE SCAN 3 PHASE | Routin | 12/21/2017 | Bone lesion | Results for this | | | e | 12:55 PM | Abnormal MRI | procedure are in the | | | | PDT | | results section. | + +--------+ + + + documented in this encounter Results NM Bone Scan 3 Phase (12/21/2017 12:55 PM PDT) + + | Specimen | + + | | + + + + + | Narrative | Performed At | + + + | EXAM:NM BONE SCAN 3 PHASE CLINICAL HISTORY: Tibial Bone Lesion- | [facility] | | Evaluate for the presence of other Lesions, Further Evaluate for | | | Infection VS Neoplasm such as metastasis or myeloma. TECHNIQUE: | | | Blood flow and Blood pool images are acquired. 3 hour delayed whole | | | body imaging is performed following the intravenous administration of | | | 26.3 millicuries of technetium 99m MDP. COMPARISON: 11/01/2017 | | | radiograph. 11/12/2017 MRI FINDINGS: Blood flow: Symmetric. | | | Blood pool: Symmetric. 3 hour delay: Focal area of metabolic | | | activity in the medial right tibial plateau. No definite metabolic | | | activity in the superior pole of the patella or right femur. There | | | is a small amount of activity in the tibia and femur arthroplasty | | | components. This probably falls within and except at range of | | | activity post surgically. There are degenerative changes in the | | | hands bilaterally. IMPRESSION - Solitary focal metabolic | | | activity in the medial right tibial plateau corresponding to the | | | plain film and MRI finding. The pattern of the lesion morphology on | | | plain film, MRI, and bone scan can be seen with degenerative related | | | subchondral cystic changes. It is felt to be unlikely that this | | | represents infection, a metastasis or plasmacytoma. Dictated and | | | Signed by: John Clarke MD Electronically signed: 12/21/2017 | | | 1:50 PM | | + + + + + | Procedure Note | + + | Paddy, Rad Results In - 12/21/2017 1:53 PM PDT EXAM:NM BONE SCAN 3 PHASE | | | | CLINICAL HISTORY: Tibial Bone Lesion- Evaluate for the presence of other | | Lesions, Further Evaluate for Infection VS Neoplasm such as metastasis or | | myeloma. | | | | TECHNIQUE: Blood flow and Blood pool images are acquired. 3 hour delayed whole | | body imaging is performed following the intravenous administration of 26.3 | | millicuries of technetium 99m MDP. | | | | COMPARISON: 11/01/2017 radiograph. 11/12/2017 MRI | | | | FINDINGS: | | | | Blood flow: Symmetric. | | | | Blood pool: Symmetric. | | | | 3 hour delay: Focal area of metabolic activity in the medial right tibial | | plateau. No definite metabolic activity in the superior pole of the patella or | | right femur. There is a small amount of activity in the tibia and femur | | arthroplasty components. This probably falls within and except at range of | | activity post surgically. There are degenerative changes in the hands | | bilaterally. | | | | IMPRESSION - | | | | Solitary focal metabolic activity in the medial right tibial plateau | | corresponding to the plain film and MRI finding. The pattern of the lesion | | morphology on plain film, MRI, and bone scan can be seen with degenerative | | related subchondral cystic changes. It is felt to be unlikely that this | | represents infection, a metastasis or plasmacytoma. | | | | Dictated and Signed by: John Clarke MD | | Electronically signed: 12/21/2017 1:50 PM | + + + +---------+ + + | Performing | Address | City/State/Zipcode | Phone Number | | Organization | | | | + +---------+ + + | [facility] | | | | + +---------+ + + documented in this encounter Visit Diagnoses Not on filedocumented in this encounter
--- OUTSIDE RECORDS SUMMARY | ~2019-12-18 | XMS | Encounter Summary ---
Demographics + + + | Address | [address] | | | [place] [address] | + + + | Home Phone | | + + + | Preferred Language | Unknown | + + + | Marital Status | | + + + | Hoahaoism Affiliation | 1073 | + + + [...] [place] | | | | | [address] | | + + + + + Care Team Providers + +------+ + | Care Embroiderer Name | Role | Phone | + +------+ + | Hector Nilesen MD | PCP | | + +------+ + Reason for Visit + +--------+ + | Reason | Onset | Comments | | | Date | | + +--------+ + | Medication Question | 07/19/ | forgot to ask question at virtual appointment | | | 2020 | | + +--------+ + Encounter Details +--------+ + + + + | Date | Type | Department | Care Team | Description | +--------+ + + + + | 07/19/ | Telephone | [facility] | Geo Worley MD [address] | Medication Question | | 2019 | | NEUROLOGY [address] | [address] | (forgot to ask | | | | [address] | [place] | question at virtual | | | | [place] | [place] [address] | appointment) | | | | [address] | [phone] | | | | | [phone] | | | +--------+ + + + [...] this encounter Miscellaneous Notes Telephone Encounter - Rj Dye Strip Deburrer - 07/24/2019 1:41 PM PDTPatient informed P M PDTTelephone Encounter - Geo Worley MD - 07/21/2019 11:07 AM PDTWe did not discuss this in the clinic. Can discuss more at her next visit after the [facility]. elephone Encounter - Rj Dye Strip Deburrer - 07/20/2019 12:23 PM PDTpatient forgot to ask she would like to start Donepezil if you give the okay P M PDTTelephone Encounter - Radha Pennington - 07/20/2019 12:00 PM PDTNancy, is calling regard ing Medication Question (forgot to ask question at virtual appointment) and would like a call back. Additional Call Details: Requesting call back, forgot to ask about [facility] Home number If this is a symptom based call, was patient offered triage? Not Applicable If this is a symptom based call and you were unable to immediately transfer the call to a gonzalez devlin dampener operator was caller made aware that if at any time she feels it is an emergency they sh ould call 911 or go to the nearest emergency room? not applicable documented in this encounter Plan of Treatment +--------+---------+ + + + | Date | Type | Specialty | Care Team | Description | +--------+---------+ + + + | 01/07/ | Office | Neurology | Geo Worley MD [address] | | | 2019 | Visit | | [facility] | | | | | | [place] | | | | | | [place] [address] | | | | | | [phone] | | | | | | | | +--------+---------+ + + + documented as of this encounter Visit Diagnoses Not on filedocumented in this encounter
--- OUTSIDE RECORDS SUMMARY | ~2019-12-18 | XMS | Encounter Summary ---
Demographics + + + | Address | [address] | | | [place] [address] | + + + | Home Phone | | + + + | Preferred Language | Unknown | + + + | Marital Status | | + + + | Latter Day Affiliation | 1073 | + + + | Race | White | + + + | Ethnic Group | Not or | + + + Author + + + | Author | [facility] | | | and [place] | + + + | Organization | [facility] | | [...] [place] | | | | | [address] | | + + + + + Care Team Providers + +------+ + | Care Cardiovascular Invasive Specialist Name | Role | Phone | + +------+ + | Avi Herman MD | PCP | | + +------+ + Reason for Visit + +--------+ + | Reason | Onset | Comments | | | Date | | + +--------+ + | Medication Refill | 03/12/ | | | | 2013 | | + +--------+ + Encounter Details +--------+ + + + + | Date | Type | Department | Care Team | Description | +--------+ + + + + | 03/12/ | Telephone | [facility] | Pa Abad MD | Medication Refill | | 2013 | | OTOLARYNGOLOGY [address] | [address] [place] [address] | | | | | [facility] [address] | [address] [place] | | | | | [place] | [id number] | | | | | [address] | | | | | | [phone] | | | +--------+ + + + [...] this encounter Miscellaneous Notes Telephone Encounter - Rosemary Syed RN - 03/12/2014 5:00 PM PSTCalled atrovent n lawson spray into [facility] in [place] per Dr Abad. Left message to notify patient.Electro nically signed by Rosemary Syed RN at 03/12/2014 5:04 PM PSTTelephone Encounter - Pa Abad MD - 03/12/2014 4:55 PM PSTCall in atrovent nasal spray 0.06% Sig 2 sprays t o nose each side 1-4 times daily prn runny nose. #1 with 3 refills elephone Encounter - Rosemary Syed RN - 03/12/2014 3:20 PM PSTYou prescribed Atrovent. Directions, amount, etc. Please.Electronica lly signed by Rosemary Syed RN at 03/12/2014 3:21 PM PSTTelephone Encounter - Gloria Cazares - 03/12/2014 2:50 PM PSTPatient is calling because she was seen on 03/09/14 and p rescription for inhaler was supposed to be called into [facility] in [place] [phone] and she states they never received anything. Please call documented in this encounter Plan of Treatment +--------+---------+ + + + | Date | Type | Specialty | Care Team | Description | +--------+---------+ + + + | 01/07/ | Office | Neurology | Geo Worley MD [address] | | | 2020 | Visit | | [facility] [address] | | | | | | [place], | | | | | | [place] [address] | | | | | | [phone] | | | | | | | | +--------+---------+ + + + documented as of this encounter Visit Diagnoses Not on filedocumented in this encounter"
--- OUTSIDE RECORDS SUMMARY | ~2019-12-18 | XMS | Encounter Summary ---
Demographics + + + | Address | [address] | | | [place] [address] | + + + | Home Phone | | + + + | Preferred Language | Unknown | + + + | Marital Status | | + + + | Muslim Affiliation | 1073 | + + + | Race | White | + + + | Ethnic Group | Not or | + + + Author + + + | Author | [facility] | | | and [place] | + + + | Organization | [facility] | | | [...] [place] | | | | | [address] | | + + + + + Care Team Providers + +------+ + | Care Guest Services Manager Name | Role | Phone | + +------+ + | Avi Herman MD | PCP | | + +------+ + Reason for Visit + +--------+ + | Reason | Onset | Comments | | | Date | | + +--------+ + | Diarrhea | 08/27/ | | | | 2016 | | + +--------+ + Encounter Details +--------+ + + + + | Date | Type | Department | Care Team | Description | +--------+ + + + + | 08/27/ | Telephone | [facility] | John Temple MD | Diarrhea | | 2017 | | GASTROENTEROLOGY | [address] | | | | | [address] [place] | [address] [place], [place] | | | | | [address] [place], [place] | [address] | | | | | [address] | | | | | | [phone] | | | +--------+ + + + [...] Telephone Encounter - Darlene Barrow RN - 08/27/2016 3:50 PM PDTLeft message for brandy cardoso that Dr. Temple asking for update. Any further diarrhea? documented in this encounter Plan of Treatment +--------+---------+ + + + | Date | Type | Specialty | Care Team | Description | +--------+---------+ + + + | 01/07/ | Office | Neurology | Geo Worley MD [address] | | | 2019 | Visit | | [address] | | | | | | [place], | | | | | | [place] [address] | | | | | | [phone] | | | | | | | | +--------+---------+ + + + documented as of this encounter Visit Diagnoses Not on filedocumented in this encounter
--- OUTSIDE RECORDS SUMMARY | ~2019-12-18 | XMS | Encounter Summary ---
Demographics + + + | Address | [address] | | | [place] [address] | + + + | Home Phone | | + + + | Preferred Language | Unknown | + + + | Marital Status | | + + + | Yazdanism Affiliation | Unknown | + + + | Race | White | + + + | Ethnic Group | Not or | + + + Author + + + | Author | [facility] | + + + | Organization | [facility] | + + + | Address | Unknown | + + + | Phone | Unavailable | + + + Support + + +---------+ + | Name | Relationship | Address | Phone | + + +---------+ + | Alex Ramsay | AYAD | Unknown | | + + +---------+ + Care Team Providers + +------+ + | Care Bobbin Drier Name | Role | Phone | + +------+ + | Avi Herman MD | PCP | | + +------+ + Reason for Visit + +--------+ + | Reason | Onset | Comments | | | Date | | + +--------+ + | Medication Question | 07/25/ | Dr. Sanabria | | | 2009 | | + +--------+ + Encounter Details +--------+ + + + + | Date | Type | Department | Care Team | Description | +--------+ + + + + | 07/25/ | Telephone | [facility] | [place], | Medication Question | | 2009 | | [facility] [place] | MD Margaret [address] | (Dr. Sanabria) | | | | Pavilion [address] | [facility] | | | | | [address] | [address] [place], [place] | | | | | Pavilion, 7th floor | [address] | | | | | [place], [place] | [phone] | | | | | [address] | | | | | | [phone] | | | +--------+ + + + + Social History + + + +--------+------+ | Tobacco Use | Types | Packs/Day | Years | Date | | | | | Used | | + + + +--------+------+ | Former Smoker | Cigarettes | 2 | 6 | | + + + +--------+------+ + + +---------+ + | Alcohol Use | Drinks/Week | oz/Week | Comments | + + +---------+ + | Yes | | | | + + +---------+ + + + + | Sex Assigned at | Date Recorded | | | | + + + | Not on file | | + + + documented as of this encounter Miscellaneous Notes Telephone Encounter - Darya [place] - 07/26/2009 2:54 PM PDTProvider's message given to patient. elephone Encoun ter - Margaret Sanabria MD - 07/25/2009 4:33 PM PDTIn my years of clinical experience, I have not found that diflucan causes vestibulodynia. Sometimes recurrent yeast infections can act like the "trigger" that starts the pain cycle. Thanks for hte updateElectronically sig saji by Margaret Sanabria MD at 07/25/2009 4:33 PM PDTTelephone Encounter - Elisabeth [place] - 07/25/2009 2:31 PM PDTNancy forgot to tell the following to Dr Sanabria at her 07/23 visi t. She is susceptible to yeast infections and is currently taking Diflucan 150mg monthly. She was found to have a yeast infection about 6-8 weeks ago and was put on 3 doses of weekly Di flucan. After her surgery and taking antibiotics about 4 weeks ago, her doctor has her taki ng monthly diflucan. Bekah states she has read that yeast infections can possible "cause" her condition and want ed Dr Sanabria to know this updated history. Diflucan added to med list. Routing to Dr Sanabria for review 2:3 2 PM PDTTelephone Encounter - Adrianne Chapin - 07/25/2009 1:41 PM PDTPatient returning call to the nurse. Patient states it is ok to leave confidential message on patient's answering machine. Elec tronically signed by Adrianne Chapin at 07/25/2009 1:41 PM PDTTelephone Encounter - Julee Arroyo Rn - 07/25/2009 11:56 AM PDTPt called and left message to call clinic to further disc uss Diflucan dose, regimen, when started. Will then forward to provider for advise. Electro nically signed by Julee Arroyo Rn at 07/25/2009 11:56 AM PDTTelephone Encounter - Jaida Pisano - 07/25/2009 11:29 AM PDTPt states, "I forgot to mention to Dr Sanabria that I'm currentl y taking diflucan as prescribed by my local doctor, Dr Orona. I was prescribed diflucan for a yeast infection. I was wondering if Dr Sanabria thought that my diagnosis could have be st arted by a yeast infection. Also, should I continue taking the diflucan?" [phone] Patient states it is ok to leave confidential message on patient's answering machine. documented in this encounter Plan of Treatment Not on filedocumented as of this encounter Visit Diagnoses Not on filedocumented in this encounter
--- OUTSIDE RECORDS SUMMARY | ~2019-12-18 | XMS | Encounter Summary ---
Demographics + + + | Address | [address] | | | [place] [address] | + + + | Home Phone | | + + + | Preferred Language | Unknown | + + + | Marital Status | | + + + | Hindu Affiliation | 1073 | + + + | Race | White | + + + | Ethnic Group | Not or | + + + Author + + + | Author | [facility] | | | and [place] | + + + | Organization | [facility] | | [...] [place] | | | | | [address] | | + + + + + Care Team Providers + +------+ + | Care Pattern Maker Programer Name | Role | Phone | + +------+ + | Avi Herman MD | PCP | | + +------+ + Reason for Visit + + + | Reason | Comments | + + + | Follow-up | Review MRI Results done at [facility] on 11/12/2017 | + + + Encounter Details +--------+---------+ + + + | Date | Type | Department | Care Team | Description | +--------+---------+ + + + | 12/17/ | Office | [facility] | Dany Terrazas, | Lytic lesion of bone | | 2018 | Visit | ORTHOPEDIC SURGERY | MD [address] | on x-ray (Primary | | | | [address] | [place] | Dx) | | | | [place] | [address] | | | | | [address] | | | | | | [phone] | | | +--------+---------+ + + + [...] Weight | 64 kg (141 lb) | 12/17/2017 11:16 AM | | | | | PDT | | + + + + + | Height | 170.2 cm (5' 7") | 12/17/2017 11:16 AM | | | | | PDT | | + + + + + | Body Mass Index | 22.08 | 12/17/2017 11:16 AM | | | | | PDT | | + + + + + documented in this encounter Progress Notes Dany Terrazas MD - 12/17/2017 11:15 AM PDTPatient returns with her today to disc uss the results of her MRI right knee I had a telephone discussion with her after the MRI was obtained and I had recommended a denisse ne scan Her states that they know a radiologist in [place] who didn't think that the tibi a bone lesion was concerning and reportedly had another radiologist look at the images and t hey 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, but that no one can say with 100 percent certainty On the MRI the lesion is large and lytic and has edema surrounding it and our radiologist t hought it was outside of the typical appearance for bone cyst and that the other possibiliti es be considered I explained that every single test or procedure even biopsy to evaluate this is fraught wit h less than 100 percent sensitivity and specificity If this represents either multiple myeloma or metastatic disease then a bone scan will help evaluate for other lesions If this is a solitary lesion than I agree that it is most likely a benign cyst They understand and agree to proceed with bone scan documented in this en counter Plan of Treatment +--------+---------+ + + + | Date | Type | Specialty | Care Team | Description | +--------+---------+ + + + | 01/07/ | Office | Neurology | Geo Worley MD [address] | | | 2019 | Visit | | [address] | | | | | | [address] [place], | | | | | | [place] [address] | | | | | | [phone] | | | | | | | | +--------+---------+ + + + documented as of this encounter Visit Diagnoses + + | Diagnosis | + + | Lytic lesion of bone on x-ray - Primary Disorder of bone and cartilage, unspecified | + + documented in this encounter
--- OUTSIDE RECORDS SUMMARY | ~2019-12-18 | XMS | Encounter Summary ---
Demographics + + + | Address | [address] | | | [place] [address] | + + + | Home Phone | | + + + | Preferred Language | Unknown | + + + | Marital Status | | + + + | Confucianist Affiliation | 1073 | + + + | Race | White | + + + | Ethnic Group | Not or | + + + Author + + + | Author | [facility] | | | and [place] | + + + | Organization | [facility] | | [...] [place] | | | | | [address] | | + + + + + Care Team Providers + +------+ + | Care Mobile Application Architect Name | Role | Phone | + +------+ + | Avi Herman MD | PCP | | + +------+ + Reason for Visit + +--------+ + | Reason | Onset | Comments | | | Date | | + +--------+ + | Appointment | 12/20/ | | | | 2014 | | + +--------+ + Encounter Details +--------+ + + + + | Date | Type | Department | Care Team | Description | +--------+ + + + + | 12/20/ | Telephone | [facility] | John Temple MD | Appointment | | 2014 | | GASTROENTEROLOGY | [address], [place] | | | | | [address] [place] | [address] [place], [place] | | | | | [address] [place], [place] | [address] | | | | | [address] | | | | | | [phone] | | | +--------+ + + + [...] Telephone Encounter - Darlene Barrow RN - 12/24/2014 12:00 PM PDTPatient states she is due for her 3 yr egd and colon next year. She has always had trouble with constipation. Dr Temple recommended a probiotic which helped. She recently has had a change in bowel habi ts after discontinuing the probiotic. At times she has looser stools and at times constipat ion. She will restart the probiotic. She also had questions regarding intermediate frame tender Protonix us e. She will make an appointment to see Doctor Windy before her next egd,colon is due. Elect ronically signed by Darlene Barrow, RN at 12/24/2014 12:08 PM PDTTelephone Encounter - Caren Ron - 12/20/2014 2:53 PM PDTPatient called in said she saw four years ag o and is having a change in bowel habits. Patient would like to speak to the nurse about thi s, please give her a call back on her home number.Electronically signed by Caren Ron at 0 12/20/2014 2:54 PM PDTdocumented in this encounter Plan of Treatment +--------+---------+ + + + | Date | Type | Specialty | Care Team | Description | +--------+---------+ + + + | 01/07/ | Office | Neurology | Geo Worley MD [address] | | | 2019 | Visit | | [address] | | | | | | [address] [place], | | | | | | [place] [id number] | | | | | | [phone] | | | | | | | | +--------+---------+ + + + documented as of this encounter Visit Diagnoses Not on filedocumented in this encounter"
--- OUTSIDE RECORDS SUMMARY | ~2019-12-18 | XMS | Encounter Summary ---
Demographics + + + | Address | [address] | | | [place] [address] | + + + | Home Phone | | + + + | Preferred Language | Unknown | + + + | Marital Status | | + + + | Yazdanism Affiliation | 1073 | + + + | Race | White | + + + | Ethnic Group | Not or | + + + Author + + + | Author | [facility] | | | and [place] | + + + | Organization | [facility] | | | [...] [place] | | | | | [address] | | + + + + + Care Team Providers + +------+ + | Care Furniture Refinisher Name | Role | Phone | + +------+ + | Avi Herman MD | PCP | | + +------+ + Reason for Visit + +--------+ + | Reason | Onset | Comments | | | Date | | + +--------+ + | Results, Imaging | 06/01/ | MR enterography | | | 2017 | | + +--------+ + Encounter Details +--------+ + + + + | Date | Type | Department | Care Team | Description | +--------+ + + + + | 06/01/ | Telephone | [facility] [place] | John Temple MD | Results, Imaging (MR | | 2018 | | GASTROENTEROLOGY | [address], [place] | enterography) | | | | [address] [place] | [address] [place], [place] | | | | | [address] [place], [place] | [address] | | | | | [address] | | | | | | [phone] | | | +--------+ + + + [...] Telephone Encounter - Darlene Barrow RN - 06/02/2017 9:44 AM PSTNotified patient th at MR enterography showed normal small bowel. Did show mild prominent appearance of endometr ium. She will be seeing Dr Stanton. Will send her copy of this mr enterography. She feels the d iarrhea is getting better. She will call if it worsens at which time she will make a follow -up appointment with Dr. Temple.Electronically signed by Darlene Barrow RN at 9:53 AM PSTTelephone Encounter - Darlene Barrow RN - 06/01/2017 2:18 PM Ibeth cherry asking patient to call for results. MR enterography shows normal small bowel. Does show questionable uterine enlargement. Dr. Herman will receive a copy of this report.Deirdre callahan signed by Darlene Brarow RN at 06/01/2017 2:19 PM PSTdocumented in this encoun ter Plan of Treatment +--------+---------+ + + + | Date | Type | Specialty | Care Team | Description | +--------+---------+ + + + | 01/07/ | Office | Neurology | Geo Worley MD [address] | | | 2020 | Visit | | [address] | | | | | | [place] | | | | | | [place] [address] | | | | | | [phone] | | | | | | | | +--------+---------+ + + + documented as of this encounter Visit Diagnoses Not on filedocumented in this encounter
--- OUTSIDE RECORDS SUMMARY | ~2019-12-18 | XMS | Encounter Summary ---
Demographics + + + | Address | [address] | | | [place] [address] | + + + | Home Phone | | + + + | Preferred Language | Unknown | + + + | Marital Status | | + + + | Jewish Affiliation | 1073 | + + + | Race | White | + + + | Ethnic Group | Not or | + + + Author + + + | Author | [facility] | | | and [place] | + + + | Organization | [facility] | | [...] [place] | | | | | [address] | | + + + + + Care Team Providers + +------+ + | Care Septic Tank Setter Name | Role | Phone | + +------+ + | Avi Herman MD | PCP | | + +------+ + Reason for Visit + +--------+ + | Reason | Onset | Comments | | | Date | | + +--------+ + | Appointment | 11/27/ | | | | 2016 | | + +--------+ + Encounter Details +--------+ + + + + | Date | Type | Department | Care Team | Description | +--------+ + + + + | 11/27/ | Telephone | [facility] | John Temple MD | Appointment | | 2016 | | GASTROENTEROLOGY | [address], [place] | | | | | [address] [place] | [address] [place], [place] | | | | | [address] [place], [place] | [address] | | | | | [address] | | | | | | [phone] | | | +--------+ + + + [...] Telephone Encounter - Darlene Barrow RN - 11/27/2016 10:05 AM PDTPatient states her had an opportunity to go fishing in [place].She asks if she can have his appt as she continues to have diarrhea. She took stool studies in today. She had 2 "accidents" recently. appt given. docum ented in this encounter Plan of Treatment +--------+---------+ + + + | Date | Type | Specialty | Care Team | Description | +--------+---------+ + + + | 01/07/ | Office | Neurology | Geo Worley MD [address] | | | 2019 | Visit | | [facility] | | | | | | [place] | | | | | | [place] [address] | | | | | | [phone] | | | | | | | | +--------+---------+ + + + documented as of this encounter Visit Diagnoses Not on filedocumented in this encounter
--- OUTSIDE RECORDS SUMMARY | ~2019-12-18 | XMS | Encounter Summary ---
Demographics + + + | Address | [address] | | | [place] [address] | + + + | Home Phone | | + + + | Preferred Language | Unknown | + + + | Marital Status | | + + + | Church Affiliation | 1073 | + + + [...] [place] | | | | | [address] | | + + + + + Care Team Providers + +------+ + | Care Pull Through Hooker Name | Role | Phone | + +------+ + | Avi Herman MD | PCP | | + +------+ + Reason for Visit + + + | Reason | Comments | + + + | Follow-up | medication refill | + + + Self-referral (Routine) +--------+--------+ + + + + | Status | Reason | Specialty | Diagnoses / | Referred By | Referred To | | | | | Procedures | Contact | Contact | +--------+--------+ + + + + | Closed | | Otolaryngolog | Diagnoses | | Pa Hebert | | | | y | Medication | | [address] | | | | | Refill / | | [address] | | | | | self / | | [place] [address] | | | | | Medicare | | [place] | | | | | Procedures | | [address] Phone: | | | | | OFFICE VISIT | | [phone] | | | | | REGULAR | | Fax: | | | | | | | [phone] | +--------+--------+ + + + + Encounter Details +--------+---------+ + + + | Date | Type | Department | Care Team | Description | +--------+---------+ + + + | 04/29/ | Office | [facility] [place] | Pa Hebert MD | Vasomotor rhinitis | | 2016 | Visit | OTOLARYNGOLOGY [address] | [address] [place] | (Primary Dx) | | | | [address] | [address] [place] | | | | | [place], [place] | [address] | | | | | [address] | | | | | | [phone] | | | +--------+---------+ + + + [...] + + | Pulse | 56 | 04/29/2015 1:50 PM | | | | | PST | | + + + + + | Temperature | - | - | | + + + + + | Respiratory Rate | 16 | 04/29/2015 1:50 PM | | | | | PST | | + + + + + | Oxygen Saturation | 98% | 04/29/2015 1:50 PM | | | | | PST | | + + + + + | Inhaled Oxygen | - | - | | | Concentration | | | | + + + + + | Weight | 63.5 kg (140 lb) | 04/29/2015 1:50 PM | | | | | PST | | + + + + + | Height | 170.2 cm (5' 7") | 04/29/2015 1:50 PM | | | | | PST | | + + + + + | Body Mass Index | 21.93 | 04/29/2015 1:50 PM | | | | | PST | | + + + + + documented in this encounter Progress Notes Pa Hebert MD - 04/29/2015 2:30 PM PST [facility] [address] [facility] [address] OFFICE NOTE PA HEBERT MD Patient: BEKAH ELDER Admitting: MR #: [id number] LOC: PT TYPE: Adm Date: 04/29/2015 : 1950 DATE OF VISIT: 04/29/2015 HISTORY OF PRESENT ILLNESS: The patient continues to have a lot of problems with a runny drippy nose. She has Kleenex all over the house. She also gets little pustules at times i n hair in the nasal opening if she does not use the Bactroban. She comes in for a followup visit. As long as she uses the Bactroban and also the Atrovent, she seems to keep her no se under fairly good control. She does some nasal irrigation and this also seems to help. She is concerned that if she is a staph carrier that is just a worry around some of her gr andchildren. A discussion was that she should use the topical hand disinfectant material and with this, she should do quite well. EXAMINATION: GENERAL: Shows an alert 64-year-old female patient. She is communicating well. Her voic e quality is good. HEENT: Skin of the face, nose, and ears all appear to be healthy. Ear canals are open. They are clean. Drums are clear. Nasal passages are open and clear, no pustules noted tod ay. No drippiness at the current time. No polyps, mass or lesions are seen. Floor of the mouth, buccal mucosa, hard palate, teeth, lips, gums are healthy. No mass seen in the or opharynx and posterior pharyngeal wall is smooth. Tongue and soft palate are smooth and mo ve symmetrically. NECK: There are no masses or lymphadenopathy. Thyroid area was smooth. Trachea is midlin e. Good range of motion of the neck without any pain or discomfort noted. IMPRESSION: 1. Vasomotor rhinorrhea. 2. Chronic folliculitis of the nose. PLAN: The patient is given a prescription for Atrovent and also for Bactroban with refill s for the next year. If there are further increasing problems, she will recheck earlier wi ENT. PA HEBERT MD Dictated by PA HEBERT MD 04/29/2015 14:30:45 Transcribed on 04/30/2015 08:00:34 by griselda job# [id number] Confirmation #: [id number] cc: AVI HERMAN MD ar shPa MD - 04/29/2015 2:26 PM PSTSee dictation # [id number] signed by Pa Hebert MD at 04/29/2015 2:33 PM PSTdocumented in th is encounter Plan of Treatment +--------+---------+ + + + | Date | Type | Specialty | Care Team | Description | +--------+---------+ + + + | 01/07/ | Office | Neurology | Geo Worley MD [address] | | | 2019 | Visit | | [facility] | | | | | | [place] | | | | | | [place] [address] | | | | | | [phone] | | | | | | | | +--------+---------+ + + + documented as of this encounter Visit Diagnoses + + | Diagnosis | + + | Vasomotor rhinitis - Primary Allergic rhinitis, cause unspecified | + + documented in this encounter
--- OUTSIDE RECORDS SUMMARY | ~2019-12-18 | XMS | Encounter Summary ---
Demographics + + + | Address | [address] | | | [place] [address] | + + + | Home Phone | | + + + | Preferred Language | Unknown | + + + | Marital Status | | + + + | Presybeterian Affiliation | 1073 | + + + [...] [place] | | | | | [address] | | + + + + + Care Team Providers + +------+ + | Care Speeder Tender Name | Role | Phone | + +------+ + | Avi Herman MD | PCP | | + +------+ + Reason for Referral Evaluate & Treat (Emergency) +--------+ + + + + + | Status | Reason | Specialty | Diagnoses / | Referred By | Referred To | | | | | Procedures | Contact | Contact | +--------+ + + + + + | Closed | Specialty | Otolaryngolog | Diagnoses | Abad, | Pa Abad | | | Services | y | Neoplasm of | Pa E, MD | E, MD [address] | | | Required | | uncertain | [address] | | | | | behavior of | [address] [address] | [place] [address] [place] | | | | | lip, oral | [place], | [place] | | | | | cavity, and | [place] [address] | [address] Phone: | | | | | pharynx | Phone: | [phone] | | | | | Procedures | [phone] | Fax: | | | | | SC EXCIS | Fax: | [phone] | | | | | MOUTH | [phone] | | | | | | MUCOSA/SUB,S | | | | | | | IMPL REPAIR | | | +--------+ + + + + + Encounter Details +--------+ + + + + | Date | Type | Department | Care Team | Description | +--------+ + + + + | 04/27/ | Orders Only | [facility] [place] | Pa Abad MD | Neoplasm of | | 2015 | | OTOLARYNGOLOGY [address] | [address] [place] | uncertain behavior | | | | [address] | [address] [place], [place] | of lip, oral cavity, | | | | [place], [place] | [address] | and pharynx | | | | [address] | | (Primary Dx) | | | | [phone] | | | +--------+ + + + [...] [place], | | | | | | [place] [address] | | | | | | [phone] | | | | | | | | +--------+---------+ + + + + + +--------+ + + | Name | Type | Priori | Associated Diagnoses | Order Schedule | | | | ty | | | + + +--------+ + + | Ambulatory referral | Outpatient | STAT | Neoplasm of | Expected: | | to ENT | Referral | | uncertain behavior | 04/30/2014, Expires: | | | | | of lip, oral cavity, | 04/27/2015 | | | | | and pharynx | | + + +--------+ + + documented as of this encounter Visit Diagnoses + + | Diagnosis | + + | Neoplasm of uncertain behavior of lip, oral cavity, and pharynx - Primary | + + documented in this encounter"
--- OUTSIDE RECORDS SUMMARY | ~2019-12-18 | XMS | Encounter Summary ---
Demographics + + + | Address | [address] | | | [place] [address] | + + + | Home Phone | | + + + | Preferred Language | Unknown | + + + | Marital Status | | + + + | Worship Affiliation | 1073 | + + + | Race | White | + + + | Ethnic Group | Not or | + + + Author + + + | Author | [facility] | | | and [place] | + + + | Organization | [facility] | | | [...] [place] | | | | | [address] | | + + + + + Care Team Providers + +------+ + | Care Sales Representative Trainee Name | Role | Phone | + +------+ + | Avi Herman MD | PCP | | + +------+ + Reason for Visit +--------+--------+ + | Reason | Onset | Comments | | | Date | | +--------+--------+ + | Other | 10/02/ | | | | 2016 | | +--------+--------+ + Encounter Details +--------+ + + + + | Date | Type | Department | Care Team | Description | +--------+ + + + + | 10/02/ | Telephone | [facility] [place] | John Temple MD | Other | | 2016 | | GASTROENTEROLOGY | [address], [place] | | | | | [address] [place] | [address] [place], [place] | | | | | [address] [place], [place] | [address] | | | | | [address] | | | | | | [phone] | | | +--------+ + + + [...] Telephone Encounter - Darlene Barrow RN - 10/07/2016 3:02 PM PDTDiscussed with kvng ent that Dr. Temple felt it could be a motility disorder. She denies any abdominal cramping just occasional watery diarrhea. She will use Imodium when she has to go out. She will com e along with her to his appointment with Dr. Temple next month. If diarrhea worsen s he will call our office so stool studies can be ordered. elephone Encounter - Darlene Barrow RN - 09/26 9:17 AM PDTSpoke with patient and she reports the Azithromycin she took for campy he lped the diarrhea, however she continues to have urgency and looser stool about 2 times a w [place]. On these days she will have to run to the bathroom and stool is loose. She has been o n a probiotic and has tried different ones such as feldman. She wonders if she should take another course of antibiotics. Discussed with patient it is common to have a post-motility disorder after an infection. She states previously she was more prone to constipation.Elec tronically signed by Darlene Barrow RN at 10/06/2016 9:24 AM PDTTelephone Encounter - Darlene Barrow RN - 10/05/2016 4:26 PM PDTLeft message returning patient's call.Veronica ctronically signed by Darlene Barrow RN at 10/05/2016 4:27 PM PDTTelephone Encounter - Darlene Barrow RN - 10/05/2016 9:27 AM PDTLeft message returning patient's call.El ectronically signed by Darlene Barrow RN at 10/05/2016 9:27 AM PDTTelephone Encounter - Nae Mark - 10/02/2016 4:07 PM PDTPatient called in asking for Christian stating rené valencia had a "bacteria in her gut" in June and was supposed to get back with her about she was jenae correia. Please call her back at [phone]. Electronically signed by Nae Mark at 0 10/02/2016 4:08 PM PDTdocumented in this encounter Plan of [...] | | | | | | [place] [address] | | | | | | [phone] | | | | | | | | +--------+---------+ + + + documented as of this encounter Visit Diagnoses Not on filedocumented in this encounter
--- OUTSIDE RECORDS SUMMARY | ~2019-12-18 | XMS | Encounter Summary ---
Demographics + + + | Address | [address] | | | [place] [address] | + + + | Home Phone | | + + + | Preferred Language | Unknown | + + + | Marital Status | | + + + | Scientologist Affiliation | 1073 | + + + | Race | White | + + + | Ethnic Group | Not or | + + + Author + + + | Author | [facility] | | | and [place] | + + + | Organization | [facility] | | | and [...] [place] | | | | | [address] | | + + + + + Care Team Providers + +------+ + | Care Pairer Odds Name | Role | Phone | + [...] Radiology | Diagnoses | Mk, | [facility] | | | | | Bone lesion | Dany Rose MD | Medicine | | | | | Abnormal | [address] | [address] | | | | | MRI | [place] | [place], | | | | | Procedures | [place], [place] | [place] | | | | | [place] Bone Scan | [address] | [address] | | | | | 3 Phase | Phone: | Phone: | | | | | | [phone] | [phone] | | | | | | Fax: | Fax: | | | | | | [phone] | [phone] | +--------+--------+ + + + + Reason for Visit Diagnostic/Screening (Routine) +--------+--------+ + + + + | Status | Reason | Specialty | Diagnoses / | Referred By | Referred To | | | | | Procedures | Contact | Contact | +--------+--------+ + + + + | Closed | | Radiology | Diagnoses | Mk, | [facility] | | | | | Bone lesion | Dany Rose MD | Medicine | | | | | Abnormal | [address] | [address] | | | | | MRI | [place] | [place], | | | | | Procedures | [place], [place] | [place] | | | | | [place] Bone Scan | [address] | [address] | | | | | 3 Phase | Phone: | Phone: | | | | | | [phone] | [phone] | | | | | | Fax: | Fax: | | | | | | [phone] | [phone] | +--------+--------+ + + + + Encounter Details +--------+ + + + + | Date | Type | Department | Care Team | Description | +--------+ + + + + | 12/21/ | Hospital | [facility] | Dany Terrazas, | Bone lesion; | | 2018 | Encounter | MED CTR NUCLEAR | [address] | Abnormal MRI | | | | MEDICINE [address] | [place], [place] | | | | | [place], | [address] | | | | | [place] [address] | | | | | | [phone] | | | +--------+ + + + [...] | | 0 | | | | Sqsdpnm-Ykcpffnwl-Um | mouth. | | | | | [...] + + | sertraline | 1 and /2 tablet by | | 0 | 12/09/19 [...] | | 2020 | Visit | | [address] | | | | | | [place] | | | | | | [place] [address] | | | | | | [phone] | | | | | | | [...] + | Diagnosis | + + | Bone lesion Disorder of bone and cartilage, unspecified | + + | Abnormal MRI Other nonspecific (abnormal) findings on radiological and other | | examinations of body structure | + + documented in this encounter Administered Medications + +--------+ + +------+------+ | Medication Order | MAR | Action | Dose | Rate | Site | | | Action | Date | | | | + +--------+ + +------+------+ | technetium TC-99M medronate | Given | 12/22/19 | 26.3 | | | | (MDP) injection 25 millicurie 25 | | 18 9:44 | millicur | | | | millicurie, Intravenous, ONCE | | AM PDT | ies | | | | PRN, Other, Starting 12/21/17 | | | | | | | at 0944, For 1 dose, Nuclear | | | | | | | Medicine | | | | | | + +--------+ + +------+------+ +---+---+ | | | +---+---+ documented in this encounter
--- OUTSIDE RECORDS SUMMARY | ~2019-12-18 | XMS | Encounter Summary ---
Demographics + + + | Address | [address] | | | [place] [address] | + + + | Home Phone | | + + + | Preferred Language | Unknown | + + + | Marital Status | | + + + | Roman Catholic Affiliation | 1073 | + + + [...] [place] | | | | | [address] | | + + + + + Care Team Providers + +------+ + | Care Machine Farmworker Name | Role | Phone | + +------+ + | Hector Nielsen MD | PCP | | + +------+ + Reason for Visit + + + | Reason | Comments | + + + | Medication Refill | | + + + Encounter Details +--------+--------+ + + + | Date | Type | Department | Care Team | Description | +--------+--------+ + + + | 02/19/ | Refill | [facility] [place] | Pa Abad, | Medication Refill | | 2014 | | PHYSIATRY [address] | MD [address] | | | | | [address] | [place], [place] | | | | | [place], [place] | [address] | | | | | [address] | | | | | | [phone] | | | +--------+--------+ + + + Social History + +-------+ [...] | | | | | | [place] [address] | | | | | | [phone] | | | | | | | | +--------+---------+ + + + documented as of this encounter Visit Diagnoses Not on filedocumented in this encounter
--- OUTSIDE RECORDS SUMMARY | ~2019-12-18 | XMS | Encounter Summary ---
Demographics + + + | Address | [address] | | | [place] [address] | + + + | Home Phone | | + + + | Preferred Language | Unknown | + + + | Marital Status | | + + + | Jew Affiliation | 1073 | + + + | Race | White | + + + | Ethnic Group | Not or | + + + Author + + + | Author | [facility] | | | and [place] | + + + | Organization | [facility] | | | and [place] | + + + | Address | Unknown | + + + | Phone | Unavailable | + + + Support + + + + + | Name | Relationship | Address | Phone | + + + + + | Ryan Elder | ECON | [address] | | | | | [place] | | | | | [address] | | + + + + + Care Team Providers + +------+ + | Care Lance Crewmember Name | Role | Phone | + +------+ + PCP | Unavailable | + +------+ + Encounter Details +--------+ + + + + | Date | Type | Department | Care Team | Description | +--------+ + + + + | 01/19/ | Hospital | [facility] | | | | 1999 | Encounter | MED CTR XRAY [address] | | | | | | [address] [place] | | | | | | [place] [address] | | | | | | [phone] | | | +--------+ + + + [...] | | | | | | [place] [address] | | | | | | [phone] | | | | | | | | +--------+---------+ + + + documented as of this encounter Visit Diagnoses Not on filedocumented in this encounter"
--- OUTSIDE RECORDS SUMMARY | ~2019-12-18 | XMS | Encounter Summary ---
Demographics + + + | Address | [address] | | | [place] [address] | + + + | Home Phone | | + + + | Preferred Language | Unknown | + + + | Marital Status | | + + + | Anglican Affiliation | 1073 | + + + | Race | White | + + + | Ethnic Group | Not or | + + + Author + + + | Author | [facility] | | | and [place] | + + + | Organization | [facility] | | [...] [place] | | | | | [address] | | + + + + + Care Team Providers + +------+ + | Care Planting Material Unloader Name | Role | Phone | + [...] 2015 | | GASTROENTEROLOGY | [address], [place] | | | | | [address] [place] | [address] [place], [place] | | | | | [address] [place], [place] | [address] | | | | | [address] | | | | | | [phone] | | | +--------+ + + + [...] | | 2020 | Visit | | [facility] [place] | | | | | | [place] | | | | | | [place] [address] | | | | | | [phone] | | | | | | | | +--------+---------+ + + + documented as of this encounter Procedures + +--------+ + + + | Procedure Name | Priori | Date/Time | Associated Diagnosis | Comments | | | ty | | | | + +--------+ + + + | EXTERNAL LAB: NORBERTO | Routin | 08/09/2014 | | Results for this | | | e | | | procedure are in the | | | | | | results section. | + +--------+ + + + | EXTERNAL LAB: | Routin | 08/09/2014 | | Results for this | | GLUCOSE | e | | | procedure are in the | | | | | | results section. | + +--------+ + + + | EXTERNAL LAB: | Routin | 08/09/2014 | | Results for this | | CALCIUM | e | | | procedure are in the | | | | | | results section. | + +--------+ + + + | EXTERNAL LAB: CARBON | Routin | 08/09/2014 | | Results for this | | DIOXIDE | e | | | procedure are in the | | | | | | results section. | + +--------+ + + + | EXTERNAL LAB: | Routin | 08/09/2014 | | Results for this | | CHLORIDE | e | | | procedure are in the | | | | | | results section. | + +--------+ + + + | EXTERNAL LAB: | Routin | 08/09/2014 | | Results for this | | POTASSIUM | e | | | procedure are in the | | | | | | results section. | + +--------+ + + + | EXTERNAL LAB: SODIUM | Routin | 08/09/2014 | | Results for this | | | e | | | procedure are in the | | | | | | results section. | + +--------+ + + + | EXTERNAL LAB: CBC | Routin | 08/09/2014 | | Results for this | | | e | | | procedure are in the | | | | | | results section. | + +--------+ + + + | EXTERNAL LAB: | Routin | 08/09/2014 | | Results for this | | CREATININE | e | | | procedure are in the | | | | | | results section. | + +--------+ + + + | CBC WITH | Routin | 08/09/2014 | | Results for this | | DIFFERENTIAL | e | | | procedure are in the | | | | | | results section. | + +--------+ + + + documented in this encounter Results External Lab: NORBERTO (08/09/2014) + +-------+ + + + | Component | Value | Ref Range | Performed | Pathologist | | | | | At | Signature | + +-------+ + + + | NORBERTO, | 12 | 8 - 23 | EXTERNAL | | | External | | | LAB | | + +-------+ + + + + +---------+ + + | Performing | Address | City/State/Zipcode | Phone Number | | Organization | | | | + +---------+ + + | EXTERNAL LAB | | | | + +---------+ + + External Lab: Glucose (08/09/2014) + +---------+ + + + | Component | Value | Ref Range | Performed | Pathologist | | | | | At | Signature | + +---------+ + + + | Glucose, | 143 (A) | 82 - 115 | EXTERNAL | | | External | | | LAB | | + +---------+ + + + + +---------+ + + | Performing | Address | City/State/Zipcode | Phone Number | | Organization | | | | + +---------+ + + | EXTERNAL LAB | | | | + +---------+ + + External Lab: Calcium (08/09/2014) + +-------+ + + + | Component | Value | Ref Range | Performed | Pathologist | | | | | At | Signature | + +-------+ + + + | Calcium, | 8.8 | 8.6 - 10.3 | EXTERNAL | | | External | | | LAB | | + +-------+ + + + + +---------+ + + | Performing | Address | City/State/Zipcode | Phone Number | | Organization | | | | + +---------+ + + | EXTERNAL LAB | | | | + +---------+ + + External Lab: Carbon Dioxide (08/09/2014) + +-------+ + + + | Component | Value | Ref Range | Performed | Pathologist | | | | | At | Signature | + +-------+ + + + | Carbon | 28 | 23 - 31 | EXTERNAL | | | Dioxide, | | | LAB | | | External | | | | | + +-------+ + + + + +---------+ + + | Performing | Address | City/State/Zipcode | Phone Number | | Organization | | | | + +---------+ + + | EXTERNAL LAB | | | | + +---------+ + + External Lab: Chloride (08/09/2014) + +-------+ + + + | Component | Value | Ref Range | Performed | Pathologist | | | | | At | Signature | + +-------+ + + + | Chloride, | 107 | 98 - 107 | EXTERNAL | | | External | | | LAB | | + +-------+ + + + + +---------+ + + | Performing | Address | City/State/Zipcode | Phone Number | | Organization | | | | + +---------+ + + | EXTERNAL LAB | | | | + +---------+ + + External Lab: Potassium (08/09/2014) + +-------+ + + + | Component | Value | Ref Range | Performed | Pathologist | | | | | At | Signature | + +-------+ + + + | Potassium, | 3.8 | 3.6 - 5 | EXTERNAL | | | External | | | LAB | | + +-------+ + + + + +---------+ + + | Performing | Address | City/State/Zipcode | Phone Number | | Organization | | | | + +---------+ + + | EXTERNAL LAB | | | | + +---------+ + + External Lab: Sodium (08/09/2014) + +-------+ + + + | Component | Value | Ref Range | Performed | Pathologist | | | | | At | Signature | + +-------+ + + + | Sodium, | 139 | 136 - 145 | EXTERNAL | | | External | | | LAB | | + +-------+ + + + + +---------+ + + | Performing | Address | City/State/Zipcode | Phone Number | | Organization | | | | + +---------+ + + | EXTERNAL LAB | | | | + +---------+ + + External Lab: Creatinine (08/09/2014) + +-------+ + + + | Component | Value | Ref Range | Performed | Pathologist | | | | | At | Signature | + +-------+ + + + | Creatinine, | 0.83 | 0.6 - 1.1 | EXTERNAL | | | External | | | LAB | | + +-------+ + + + + + | Specimen | + + | Blood specimen | | (specimen) | + + + +---------+ + + | Performing | Address | City/State/Zipcode | Phone Number | | Organization | | | | + +---------+ + + | EXTERNAL LAB | | | | + +---------+ + + CBC with Differential (08/09/2014) + +-------+ + + + | Component | Value | Ref Range | Performed | Pathologist | | | | | At | Signature | + +-------+ + + + | MCH | 30.6 | 26.0 - 33.0 pg | | | + +-------+ + + + | MCHC | 32.7 | 30.0 - 36.0 % | | | + +-------+ + + + | Basophils % | 0.2 | 0 - 3 | | | + +-------+ + + + + + | Specimen | + + | Blood specimen | | (specimen) | + + External Lab: CBC (08/09/2014) + +-------+ + + + | Component | Value | Ref Range | Performed | Pathologist | | | | | At | Signature | + +-------+ + + + | WBC, | 9.4 | 4 - 10 | EXTERNAL | | | External | | | LAB | | + +-------+ + + + | HGB, | 12.1 | 11.5 - 16 | EXTERNAL | | | External | | | LAB | | + +-------+ + + + | HCT, | 37 | 34.7 - 46 | EXTERNAL | | | External | | | LAB | | + +-------+ + + + | PLT, | 191 | 140 - 440 | EXTERNAL | | | External | | | LAB | | + +-------+ + + + | Neutrophils | 73.5 | 37 - 80 | EXTERNAL | | | %, | | | LAB | | | External | | | | | + +-------+ + + + | Lymphocytes | 20 | 16 - 51 | EXTERNAL | | | %, | | | LAB | | | External | | | | | + +-------+ + + + | Monocytes | 6.2 | 0 - 12 | EXTERNAL | | | %, External | | | LAB | | + +-------+ + + + | Eosinophils | 0.1 | 0 - 8 | EXTERNAL | | | %, | | | LAB | | | External | | | | | + +-------+ + + + | Neutrophils | 6.87 | 1.5 - 8 | EXTERNAL | | | , Absolute, | | | LAB | | | External | | | | | + +-------+ + + + | Lymphocytes | 1.87 | 0.8 - 4 | EXTERNAL | | | , Absolute, | | | LAB | | | External | | | | | + +-------+ + + + | Monocytes, | 0.58 | 0 - 1.2 | EXTERNAL | | | Absolute, | | | LAB | | | External | | | | | + +-------+ + + + | Eosinophils | 0.01 | 0 - 0.3 | EXTERNAL | | | , Absolute | | | LAB | | + +-------+ + + + | Basophils, | 0.02 | 0 - 0.3 | EXTERNAL | | | Absolute | | | LAB | | + +-------+ + + + | RBC, | 3.96 | 3.85 - 5.2 | EXTERNAL | | | External | | | LAB | | + +-------+ + + + | MCV, | 93 | 80 - 97 | EXTERNAL | | | External | | | LAB | | + +-------+ + + + | RDW, | 12.8 | 11.5 - 15 | EXTERNAL | | | External | | | LAB | | + +-------+ + + + + +---------+ + + | Performing | Address | City/State/Zipcode | Phone Number | | Organization | | | | + +---------+ + + | EXTERNAL LAB | | | | + +---------+ + + documented in this encounter Visit Diagnoses Not on filedocumented in this encounter
--- OUTSIDE RECORDS SUMMARY | ~2019-12-18 | XMS | Encounter Summary ---
Demographics + + + | Address | [address] | | | [place] [address] | + + + | Home Phone | | + + + | Preferred Language | Unknown | + + + | Marital Status | | + + + | Mu-Ism Affiliation | 1073 | + + + | Race | White | + + + | Ethnic Group | Not or | + + + Author + + + | Author | [facility] | | | and [place] | + + + | Organization | [facility] | | | [...] [place] | | | | | [address] | | + + + + + Care Team Providers + +------+ + | Care World Travel Counselor Name | Role | Phone | + +------+ + PCP | Unavailable | + +------+ + Encounter Details +--------+ + + + + | Date | Type | Department | Care Team | Description | +--------+ + + + + | 12/26/ | Hospital | [facility] | | | | 2002 | Encounter | [facility] | | | | | | [address] | | | | | | [place] | | | | | | [address] | | | | | | [phone] | | | +--------+ + + + [...] | | | | | | [place] [address] | | | | | | [phone] | | | | | | | | +--------+---------+ + + + documented as of this encounter Visit Diagnoses Not on filedocumented in this encounter"
--- OUTSIDE RECORDS SUMMARY | ~2019-12-18 | XMS | Clinical Summary ---
Demographics + + + | Address | [address] | | | [place] [address] | + + + | Home Phone | | + + + | Preferred Language | Unknown | + + + | Marital Status | | + + + | Holiness Affiliation | 1073 | + + + [...] [place] | | | | | [address] | | + + + + + Care Team Providers + +------+ + | Care Assistant Editor Name | Role | Phone | + +------+ + | Hector Nielsen MD | PCP | | + +------+ + Allergies + + + + + + | Active Allergy | Reactions | Severity | Noted | Comments | | | | | Date | | + + + + + + | Metoclopramide | Other (See Comments) | Medium | 03/08/20 | depression | | | | | 14 | | + + + + + + | Moexipril | Shortness Of Breath | High | | AKA Univasc | | Hydrochloride | | | | | + + + + + + | Oxycodone | Other (See Comments) | | 12/02/19 | "makes her leozy" | | | | | 17 | | + + + + + + | Propafenone | Other (See Comments) | | 04/28/19 | Did not work for | | | | | 18 | her Afib, she wants | | | | | | this on her allergy | | | | | | list | + + + + + + Medications + + + +---------+------+------+-------+ | Medication | Sig | Dispensed | Refills | Star | End | Statu | | | | | | t | Date | s | | | | | | Date | | | + + + +---------+------+------+-------+ | cholecalciferol | Take 400 Units by | | 0 | 09/1 | | Activ | | (VITAMIN D-3) 400 | mouth Daily. | | | 2/20 | | e | | units TABS | | | | 12 | | | + + + +---------+------+------+-------+ | Polyethylene | Apply to eye Daily | | 0 | | | Activ | | Glycol 400 (BLINK | as needed. | | | | | e | | TEARS OP) | | | | | | | + + + +---------+------+------+-------+ | | Take 1,500 mg by | | 0 | | | Activ | | Wvmlgjb-Smyicojaa-Tn | mouth. | | | | | e | | tamin D (CITRACAL | | | | | | | | SLOW RELEASE) | | | | | | | | 600-40-500 | | | | | | | | MG-MG-UNIT TB24 | | | | | | | + + + +---------+------+------+-------+ | ipratropium | INSTILL TWO SPRAYS | 15 mL | 5 | 02/2 | | Activ | | (ATROVENT) 0.06% | IN EACH NOSTRIL UP | | | 2/20 | | e | | nasal spray | TO FOUR TIMES DAILY | | | 17 | | | | | NEEDED | | | | | | + + + +---------+------+------+-------+ | citalopram | Take 35 mg by mouth | | 0 | 04/0 | | Activ | | (CELEXA) 20 mg | Daily . | | | 7/20 | | e | | tablet | | | | 20 | | | + + + +---------+------+------+-------+ | donepezil | Take 1 tablet by | 30 | 6 | 07 | | Activ | | (ARICEPT) 5 mg | mouth nightly. 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 | + + + | Depression with anxiety | 03/08/2014 | + + + | Fibrillation, atrial | 03/08/2014 | + + + | HTN (hypertension) | 03/08/2014 | + + + | Hyperlipidemia | 03/08/2014 | + + + | Internal derangement of knee | 03/08/2014 | + + + | Osteopenia | 03/08/2014 | + + + | Postmenopausal disorder | 03/08/2014 | + + + | Unspecified essential hypertension | 03/08/2014 | + + + + + | Overview: ICD-10 Record update | + + + + + | Disorder of bone and cartilage, unspecified | 03/08/2014 | + + + + + | Overview: ICD-10 Record update | + + + + + | Unspecified internal derangement of knee | 03/08/2014 | + + + + + | Overview: ICD-10 Record update | + + + + + | Other and unspecified hyperlipidemia | 03/08/2014 | + + + | Atrial fibrillation | 03/08/2014 | + + + | Dysthymic disorder | 03/08/2014 | + + + | Esophageal reflux | 03/08/2014 | + + + | Dyspnea on exertion | 05/15/2013 | + + + | Abnormal stress ECG with treadmill | 05/15/2013 | + + + | Fatigue | 05/15/2013 | + + + | PAROXYSMAL ATRIAL FIBRILLATION | | + + + Encounters +--------+ + + + + | Date | Type | Specialty | Care Team | Description | +--------+ + + + + | 09/26/ | Office | Neurology | Geo Worley MD | 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 | Visit | | | Alzheimer's disease | | | | | | without behavioral | | | | | | disturbance (HCC) | | | | | | (Primary Dx) | +--------+ + + + + | 09/26/ | Clinical | Neurology | Geo Worley MD | Memory loss (Primary | | 2019 | Support | | | Dx) | +--------+ + + + + from Last 3 Months Immunizations + + + + | Name | Administration Dates | Next Due | + + + + | INFLUENZA PF 63 Y OR | 12/31/2016 | | | >,TRIVALENT (FLUAD) | | | + + + + | INFLUENZA PF | 12/23/2018, 01/06/2018 | | | TRIVALENT(PED/ADOL/A | | | | FINN BARLOW | | | + + + + | INFLUENZA, H8T8-12, | 02/19/2009 | | | UNSPECIFIED | | | + + + + | PNEUMOCOCCAL | 04/27/2016 | | | POLYSACCHARIDE | | | | 23-VALENT (PPSV23) | | | + + + + | ZOSTER NON-LIVE | 05/09/2019 | | | (SHINGRIX) | | | + + + + | ZOSTER, 1 DOSE | 03/13/2013 | | | (ZOSTAVAX) | | | + + + + Family History + + +------+ + | Medical History | Relation | Name | Comments | + + +------+ + | Gout | Father | | | + + +------+ + | Heart attack | Father | | | + + +------+ + | Hypertension | Father | | | + + +------+ + | Kidney disease | Father | | | + + +------+ + | Muscle disease | Father | | | + + +------+ + | Osteoarthritis | Father | | | + + +------+ + | Cancer | Mother | | | + + +------+ + | Dementia | Mother | | | + + +------+ + | Heart attack | Mother | | | + + +------+ + | Hypertension | Mother | | | + + +------+ + | Kidney disease | Mother | | | + + +------+ + | Muscle disease | Mother | | | + + +------+ + | Osteoporosis | Mother | | | + + +------+ + | Other (see comment) | Mother | | PAF | + + +------+ + | Heart attack | Other | | Sibling history | + + +------+ + | Hypertension | Other | | Sibling history | + + +------+ + | Kidney disease | Other | | Sibling history | + + +------+ + | Muscle disease | Other | | Sibling history | + + +------+ + + +------+ + + | Relation | Name | Status | Comments | + +------+ + + | Father | | | | | | | (Age | | | | | 60) | | + +------+ + + | Mother | | | | | | | (Age | | | | | 80) | | + +------+ + + | Other | | | | + +------+ + + Social History + + + [...] on file | | + + + Last Filed Vital Signs + + + + + | Vital Sign | Reading | Time Taken | Comments | + + + + + | Blood Pressure | 145/77 | 09/27/2019 10:05 AM | | | | | PDT | | + + + + + | Pulse | 50 | 09/27/2019 10:05 AM | | | | | PDT | | + + + + + | Temperature | 36.5 C (97.7 F) | 07/10/2016 11:16 AM | | | | | PDT | | + + + + + | Respiratory Rate | 58 | 04/28/2017 2:21 PM | | | | | PST | | + + + + + | Oxygen Saturation | 100% | 09/27/2019 10:05 AM | | | | | PDT | | + + + + + | Inhaled Oxygen | - | - | | | Concentration | | | | + + + + + | Weight | 62.1 kg (137 lb) | 09/27/2019 10:05 AM | | | | | PDT | | + + + + + | Height | 167.6 cm (5' 6") | 09/27/2019 10:05 AM | | | | | PDT | | + + + + + | Body Mass Index | 22.11 | 09/27/2019 10:05 AM | | | | | PDT | | + + + + + Plan of Treatment +--------+---------+ + + + | Date | Type | Specialty | Care Team | Description | +--------+---------+ + + + | 01/07/ | Office | Neurology | Geo Worley MD [address] | | | 2019 | Visit | | [address] | | | | | | [place] | | | | | | [place] [address] | | | | | | [phone] | | | | | | | | +--------+---------+ + + + + + + + + | Health Maintenance | Due Date | Last | Comments | | | | Done | | + + + + + | Hepatitis C | | | | | Screening | 9 | | | + + + + + | Vaccine: | | | | | Dtap/Tdap/Td (1 - | 8 | | | | Tdap) | | | | + + + + + | Breast Cancer | | | | | Screening | 4 | | | + + + + + | Adult Annual | | | | | Wellness Visit | 5 | | | + + + + + | Vaccine: Zoster (3 | | 05/09/19 | | | of 3) | 0 | 20, | | | | | 03/13/20 | | | | | 13 | | + + + + + | Vaccine: Influenza | | 12/24/19 | | | (#1) | 0 | 19, | | | | | 01/07/20 | | | | | 18, | | | | | 01/01/20 | | | | | 17, | | | | | Addition | | | | | al | | | | | history | | | | | exists | | + + + + + | Colorectal Cancer | | 07/11/19 | | | Screening | 7 | 17, | | | (Colonoscopy) | | 07/11/19 | | | | | 17, | | | | | 04/17/19 | | | | | 11 | | + + + + + | Vaccine: | Completed | 04/27/19 | | | Pneumococcal 63+ | | 17 | | + + + + + Results Not on filefrom Last 3 Months Insurance + +--------+ +--------+ +---------+--------+ | Payer | Benefi | Subscriber | Effect | Phone | Address | Type | | | t Plan | ID | susana | | | | | | / | | Dates | | | | | | Group | | | | | | + +--------+ +--------+ +---------+--------+ | MEDICARE | MEDICA | [id number] | 08/28/19 | [phone] | | Medica | | | RE | | 14-Pre | 5 | | re | | | PART A | | sent | | | | | | AND B | | | | | | + +--------+ +--------+ +---------+--------+ | MEDICARE | MEDICA | [id number] | 08/28/19 | [phone] | | Medica | | | RE | | 14-Pre | 5 | | re | | | PART A | | sent | | | | | | AND B | | | | | | + +--------+ +--------+ +---------+--------+ | [employer] | MANHAT | [id number] | 10/28/19 | | | Indemn | | | TOLLIVER | | 17-Pre | | | ity | | | LIFE | | sent | | | | | | MDCR | | | | | | | | SUPPL | | | | | | + +--------+ +--------+ +---------+--------+ | [employer] | [employer] | [id number] | 10/28/19 | | | Indemn | | | TOLLIVER | | 17-Pre | | | ity | | | LIFE | | sent | | | | | | MDCR | | | | | | | | SUPPL | | | | | | + +--------+ +--------+ +---------+--------+ + +--------+ +--------+ + + | Guarantor Name | Accoun | Relation to | Date | Phone | Billing Address | | | t Type | Patient | of | | | | | | | | | | + +--------+ +--------+ + + | Bekah Elder | Person | Self [birth year] | [address] | | [place] | al/Fam | | 1951 | [phone] | [place], [place] | | | [place] | | | [address] (Home) | [address] | + +--------+ +--------+ + + | Bekah Elder | Person | Self [birth year] | [address] | | [place] | al/Fam | | 1951 | [phone] | [place], [place] | | | [place] | | | [address] (Home) | [address] | + +--------+ +--------+ + + | Bekah Elder | Person | Self [birth year] | [address] | | [place] | al/Fam | | 1951 | [phone] | [place], [place] | | | [place] | | | 5 (Home) | [address] | + +--------+ +--------+ + + Advance Directives + + + + + | Type | Date Recorded | Patient | Explanation | | | | Maintenance Groundskeeper | | + + + + + | Power of | | | | | Sales Coordinator | | | | + + + + + | Power of | | | | | Sales Coordinator | | | | + + + + + | Advance | 07/10/2016 9:38 | | | | Directive | AM | | | + + + + + | Advance | | | | | Directive | | | | + + + + +
--- OUTSIDE RECORDS SUMMARY | ~2019-12-18 | XMS | Encounter Summary ---
Demographics + + + | Address | [address] | | | [place] [address] | + + + | Home Phone | | + + + | Preferred Language | Unknown | + + + | Marital Status | | + + + | Baptist Affiliation | Unknown | + + + | Race | White | + + + | Ethnic Group | Not or | + + + Author + + + | Author | [facility] | + + + | Organization | [facility] | + + + | Address | Unknown | + + + | Phone | Unavailable | + + + Support + + +---------+ + | Name | Relationship | Address | Phone | + + +---------+ + | Alex Ramsay | AYAD | Unknown | | + + +---------+ + Care Team Providers + +------+ + | Care Care Transition Coordinator Name | Role | Phone | + +------+ + PCP | Unavailable | + +------+ + Encounter Details +--------+ + + + + | Date | Type | Department | Care Team | Description | +--------+ + + + + | 06/09/ | Office | [facility] | Clinic, | Progress Note | | 2004 | Visit-Trans | ONCOLOGY | Multidisciplinary | | | | cribed | | Breast | | +--------+ + + + + [...] + + documented as of this encounter Progress Notes Interface, Group Home Paraprofessional In - 10/26/2004 12:47 AM PDT [id number] 06/09/2004 06/09/2004 [id number] [facility] Date: 06/09/2004 Clinic: Multidisciplinary Breast Bekah is a woman who is here for consultation about possible prophylactic tamoxifen based on a P01 protocol. She has a family history of the mother developing breast cancer. Based on her Bailey model risk factors, I calculated that she has a probability of developing breast cancer within the next 5 years of 3.2% and a 20.6% lifetime risk. The patient declined breast examination today. She has had a recent mammography which is negative. Assessment: Family history of breast cancer. The patient has a 3.2% chance of developing breast cancer in the next 5 years and a 20.6% lifetime risk. I told her that it is important to realize that this is a 96.8% chance that she will not breast cancer in the next 5 years and a 79.4% chance that she will not for the remainder of her lifetime. We then discussed the tamoxifen prevention trial. I told her that this is not really a prevention trial but a suppression trial. The study was stopped at 3.7 years. This is inadequate time to prevent breast cancers. It takes generally about 10 years to grow a tumor on the first malignant cell to something that is barely detectable. Thus, all people on the prevention trial had breast cancer when they signed up, and we merely suppressed the appearance of the ER positive tumors in the tamoxifen group. I told her that while the study touts a 44% reduction of breast cancer rates but this is the relative reduction. The study actually showed that there were only 69 breast cancers prevented between the tamoxifen group and the placebo group when the study was halted. This was actually a 1% reduction. The placebo group got breast cancer at a rate of 2.3%, and the tamoxifen group got breast cancer at a rate of 1.3%. This is a 1% difference. However, 1% is 44% of 2.3%. This means there is a 99% chance that the tamoxifen does not prevent breast cancer. Unfortunately, the tamoxifen is not taken without a dumas. There were 4 events that were statistically significantly more probable with the tamoxifen therapy than without it. These included deep venous thrombosis, pulmonary embolism, uterine carcinomas, and strokes. Some of these events were fatal for patients who had no breast cancer. If those events are added up, they add up to 61 harmful or fatal events. Thus, we have 69 breast cancers prevented minus 61 harmful ( ) results equals 8 more beneficial than harmful outcomes. If we divide that by the 6900 women taking tamoxifen, the absolute benefit without risk comes out at a mere 0.1%. She had questions about hormone replacement therapy, and I told her that contrary to what intuition would suggest, this maybe beneficial for women who are at high risk for developing breast cancer. Most of the risk factors cannot be changed such as age, sex, family history, age at first period, and age at menopause. However, numerous studies show that women who develop breast cancer with a history of HRT exposure actually develop more mammographically detected tumors than palpable lumps, more DCIS than invasive tumors, more stage I breast cancer, and it has a 13% better survival rate than breast cancer that develops off HRT. The only study that seems to disagree with this is the [facility] study, but that study actually does not show that women with HRT develop more aggressive breast cancers; rather, the placebo group in that study was too good to be true having 10% fewer positive nodes than would be expected. This apparently was due to lack of adequate axillary staging in elderly patients with tumors less than 1 cm. I told her that our study here at [facility] studying the impact of HRT on breast cancer and detection stage and survival is in agreement with that of a number of other authors. Time spent with the patient was 1 hour, the majority of which was spent on counseling. The patient will make her decisions about tamoxifen prevention versus HRT on her own based on our consultation. Paulo Goodwin M.D. / [id number] / [id number] / [id number] / [id number] C: 06/18/2004 [facility] cc: Tamar Ruelas M.D. [address] [place] [address] [facility]. [address] [place] [address] Electronically signed by Paulo Goodwin 07-07-2004 03:52:12 PM documented i n this encounter Plan of Treatment Not on filedocumented as of this encounter Visit Diagnoses Not on filedocumented in this encounter"
--- OUTSIDE RECORDS SUMMARY | ~2019-12-18 | XMS | Encounter Summary ---
Demographics + + + | Address | [address] | | | [place] [address] | + + + | Home Phone [...] [place] | | | | | [address] | | + + + + + Care Team Providers + +------+ + | Care Nuclear Technologist Name | Role | Phone | + +------+ + | Hector Nielsen MD | PCP | | + +------+ + Reason for Visit + + + | Reason | Comments | + + + | Neurologic Problem | | + + + Evaluate & Treat (Routine) + +--------+ + + + + | Status | Reason | Specialty | Diagnoses / | Referred By | Referred To | | | | | Procedures | Contact | Contact | + +--------+ + + + + | Authorized | | Neurology | Diagnoses | Gia, | Geo Worley, | | | | | Other | Hector Snider, | [address] | | | | | amnesia | [address] | [address] | | | | | Other | [address] | [address] | | | | | specified | [place] | [place], | | | | | anxiety | [place] [address] | [place] [address] | | | | | disorders | Phone: | Phone: | | | | | | [phone] | [phone] | | | | | | Fax: | Fax: | | | | | | [phone] | [phone] | + +--------+ + + + + Encounter Details +--------+ + + + + | Date | Type | Department | Care Team | Description | +--------+ + + + + | 07/19/ | Virtual | [facility] | Geo Worley MD [address] | Memory loss (Primary | | 2019 | Office | NEUROLOGY [address] | Dx) | | | Visit | [place] | [address] [facility], | | | | | [place], [place] | [place] [address] | | | | | [address] | [phone] | | | | | [phone] | | | +--------+ + + + [...] documented as of this encounter Progress Notes Geo Worley MD - 07/20/2019 9:30 AM PDTFormatting of this note might be different from the o riginal. Referring Physician: Hector Nielsen MD PCP: Hector Nielsen MD Date of Encounter: 07/20/2019 Service was provided [id number] with the patient via interactive videoconferencing Video start time 9:50 Video end time 10:25 Total time (in minutes) including non xsyd-fe-[id number] time (reviewing records, etc..) 45 You have chosen to receive care through the use of telemedicine. Telemedicine enables [facility] care providers at different locations to provide safe, effective and convenient care throu gh the use of technology. As with any health care service, there are risks associated with t he use of telemedicine, including equipment failure, poor image resolution and information s ecurity issues. Do you understand the risks and benefits of telemedicine as I have explained them to you? " Yes" Have your questions regarding telemedicine been answered? "Yes" Patient is currently at Patient's location: home, [place], [place] Do you consent to the use of telemedicine in your medical care today? Yes. Last question, I need to confirm where are you physically located right now? Answer: Patient confirms they are located in a state where Geo Burkett MD is licensed. CHIEF COMPLAINT: memory loss HISTORY OF PRESENT ILLNESS Bekah Elder is a pleasant 68 y.o. female with history of depression, A. fib stat us post ablation, who presents to the clinic today for evaluation of memory loss. Patient reports memory loss for 1 year or longer. Short term memory is primarily affected. Patient would forget things that was just told to her. She would repeatedly ask the same question. She forgets appointments. She misplaces personal items. At one time, she starte d a meal, got distracted, and then when she returned, she started to cook something complete ly different. She denies difficulty driving, recent traffic tickets or accidents. She take s medication by herself, but occasionally needs reminder from . She recently was wor yue with primary doctor to taper her Celexa, she had trouble knowing how to follow the doct ors instructions. is concerned. She has no significant difficulty handling daily activity at this time. She reports good balance, she denies involuntary movement, denies bladder incontinence. Her mother was diagnosed with Alzheimer disease in her early 60s, maternal grandmother had dementia in her 80s. Patient has 30-year history of depression, was on several different antidepressant. She fe els her depression is under control at this time. She is in the process of weaning Celexa. Labs CBC, CMP, RPR unremarkable. CT head 11/16/2018, [facility]: Minimal atherosclerotic disease. Otherwise normal appearanc e of the brain. 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 ALLERGIES Allergies Allergen Reactions Moexipril Hydrochloride Shortness Of Breath AKA Univasc Metoclopramide Other (See Comments) depression Oxycodone Other (See Comments) "makes her crazy" Propafenone Other (See Comments) Did not work for her Afib, she wants this on her allergy list MEDICATIONS Current Outpatient Medications: alendronate (FOSAMAX) 70 mg tablet, , Disp: , Rfl: 12 Fnfliap-Mxhxgnznn-Apfkvqp D (CITRACAL SLOW RELEASE) 600-40-500 MG-MG-UNIT TB24, Take 1 ,500 mg by mouth., Disp: , Rfl: cholecalciferol (VITAMIN D-3) 400 units TABS, Take 400 Units by mouth Daily., Disp: , Rfl: estradiol (VAGIFEM) 10 mcg vaginal tablet, Place 10 mcg vaginally as needed., Disp: , Rfl: ipratropium (ATROVENT) 0.06% nasal spray, INSTILL TWO SPRAYS IN EACH NOSTRIL UP TO FOU R TIMES DAILY NEEDED, Disp: 15 mL, Rfl: 5 Lysine 500 MG CAPS, Take 500 mg by mouth Daily., Disp: , Rfl: metoprolol succinate (TOPROL-XL) 25 mg 24 hr tablet, one tablet by mouth daily, Disp: , Rfl: 1 mupirocin (BACTROBAN) 2% ointment, Apply topically to the nose as directed., Disp: 22 g, Rfl: 1 Polyethylene Glycol 400 (BLINK TEARS OP), Apply to eye Daily as needed., Disp: , Rfl: rivaroxaban (XARELTO) 20 mg tablet, Take 20 mg by mouth Daily., Disp: , Rfl: sertraline (ZOLOFT) 50 mg tablet, 1 and 1/2 tablet by mouth daily (Patient taking diff erently: Take 75 mg by mouth Daily.), Disp: , Rfl: PAST MEDICAL HISTORY Past Medical History: Diagnosis Date 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 Arthritis Atrial fibrillation (HCC) 03/08/2014 Atrial flutter (HCC) Depression with anxiety 03/08/2014 Disorder of bone and cartilage, unspecified 03/08/2014 Esophageal reflux 03/08/2014 Essential hypertension 03/08/2014 H/O campylobacteriosis 06/2016 Hyperlipidemia 03/08/2014 Internal derangement of knee 03/08/2014 Osteoarthritis Osteopenia 03/08/2014 Postmenopausal disorder 03/08/2014 Unspecified essential hypertension 03/08/2014 Unspecified internal derangement of knee 03/08/2014 FAMILY HISTORY Family History Problem Relation Age [...] Not on file Occupational History 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 WDWN, NAD Neuro Exam MS Awake, alert, oriented x3. Cooperative and appropriate during the encounter. Speech is candelaria r, fluent and coherent. Registered 3/3 and recalled 1/3 items after 3 minutes. Spells world backwards CN EOMI. Face is symmetric. Hearing is intact. Tongue protrusion is midline. Motor Bulk and Tone: Unable to evaluate muscle tone Muscle strength: No pronator drift Coordination FNF intact Gait normal ASSESSMENT & PLAN 68 y.o. female who presents with more than 1 year history of short-term memory loss. It wa s noted that her recent head CT was unremarkable. Her neurological exam showed difficulty r ecalling. Her neurological exam is otherwise unremarkable. Recent labs including CBC, CMP, RPR were unremarkable. Patient falls in the mild cognitive impairment range. Review of the history did show long-t erm depression that may contribute. However patient does reports well-controlled depression at this time. Several points in her history, as well as difficulty recall can be concernin g for early dementia. - Recommend WACE for more detailed memory test and to evaluate for patterns of cognitive de ficit to suggest certain type of dementia - Recommend to check B12 and TSH if not done so already. Patient will follow this with herbert mcqueen - Discussed cognitive health issues. Advised to stay mentally and physically active. Regula r physical exercises was encouraged, as patient can tolerate. Follow with primary doctor to continue optimize management of depression. - Follow up after the WACE and as needed Thank you for allowing me to take care of this patient. Please do not hesitate to contact ilia valencia if you have any questions. Cc: Hector Nielsen MD This note was prepared using [employer] voice recognition technology. There may be so und-alike errors even though every effort has been made to ensure accuracy. documented in this encounter Plan of Treatment +--------+---------+ + + + | Date | Type | Specialty | Care Team | Description | +--------+---------+ + + + | 01/07/ | Office | Neurology | Geo Worley MD [address] | | | 2019 | Visit | | [address] | | | | | | [place], | | | | | | [place] [address] | | | | | | [phone] | | | | | | | | +--------+---------+ + + + documented as of this encounter Visit Diagnoses + + | Diagnosis | + + | Memory loss - Primary | + + documented in this encounter
--- OUTSIDE RECORDS SUMMARY | ~2019-12-18 | XMS | Encounter Summary ---
Demographics + + + | Address | [address] | | | [place] [address] | + + + | Home Phone | | + + + | Preferred Language | Unknown | + + + | Marital Status | | + + + | Adventism Affiliation | 1073 | + + + | Race | White | + + + | Ethnic Group | Not or | + + + Author + + + | Author | [facility] | | | and [place] | + + + | Organization | [facility] | | | [...] [place] | | | | | [address] | | + + + + + Care Team Providers + +------+ + | Care Hris Specialist Name | Role | Phone | [...] Description | +--------+--------+ + + + | 11/28/ | Refill | [facility] [place] | Pa Abad, | Medication Refill | | 2014 | | PHYSIATRY [address] | MD [address] | | | | | [address] | [place], [place] | | | | | [place], [place] | [address] | | | | | [address] | | | | | | [phone] | | | +--------+--------+ + + + [...] 01/07/ | Office | Neurology | Geo Worely MD [address] | | | 2020 | Visit | | [address] | | | | | | [place] | | | | | | [place] [address] | | | | | | [phone] | | | | | | | | +--------+---------+ + + + documented as of this encounter Visit Diagnoses Not on filedocumented in this encounter"
--- OUTSIDE RECORDS SUMMARY | ~2019-12-18 | XMS | Encounter Summary ---
Demographics + + + | Address | [address] | | | [place] [address] | + + + | Home Phone | | + + + | Preferred Language | Unknown | + + + | Marital Status | | + + + | Zoroastrianism Affiliation | 1073 | + + + | Race | White | + + + | Ethnic Group | Not or | + + + Author + + + | Author | [facility] | | | and [place] | + + + | Organization | [facility] | | [...] [place] | | | | | [address] | | + + + + + Care Team Providers + +------+ + | Care Balling Machine Operator Name | Role | Phone | + +------+ + PCP | Unavailable | + +------+ + Encounter Details +--------+ + + + + | Date | Type | Department | Care Team | Description | +--------+ + + + + | 01/17/ | Hospital | [facility] | | | | 2001 | Encounter | MED CTR XRAY [address] | | | | | | [place] | | | | | | [place] [address] | | | | | | [phone] | | | +--------+ + + + [...] | | | | | | [place] [address] | | | | | | [phone] | | | | | | | | +--------+---------+ + + + documented as of this encounter Visit Diagnoses Not on filedocumented in this encounter"
--- OUTSIDE RECORDS SUMMARY | ~2019-12-18 | XMS | Encounter Summary ---
Demographics + + + | Address | [address] | | | [place] [address] | + + + | Home Phone [...] + + + | Author | [facility] | | | and [place] | + + + | Organization | [facility] [...] [place] | | | | | [address] | | + + + + + Care Team Providers + +------+ + | Care Computer Network Specialist Name | Role | Phone | + +------+ + | Hector Nielsen MD | PCP | | + +------+ + Reason for Visit + +--------+ + | Reason | Onset | Comments | | | Date | | + +--------+ + | Appointment | 07/17/ | | | | 2020 | | + +--------+ + Encounter Details +--------+ + + + + | Date | Type | Department | Care Team | Description | +--------+ + + + + | 07/17/ | Telephone | [facility] | Geo Worley MD [address] | Appointment | | 2019 | | NEUROLOGY [address] | [facility] | | | | | [place] | [address] [place], | | | | | [place], [place] | [place] [address] | | | | | [address] | [phone] | | | | | [phone] | | | +--------+ + + + [...] this encounter Miscellaneous Notes Telephone Encounter - German Devon Snider - 07/18/2019 1:40 PM PDTNancy, [facility] and would like a call back. Additional Call Details: Patient stated that she returned Jesus's call in regards to switch ing her 07/19 appointment to Virtual. Patient denied the request, stated that she'd like to s ee the doctor in person and to keep the appointment as is. If any questions, patient Can be reached at Mobile Number listed in Chart. If this is a symptom based call, was patient offered triage? Not Applicable If this is a symptom based call and you were unable to immediately transfer the call to a gonzalez devlin railroad track inspector was caller made aware that if at [...] [place], | | | | | | [place] [address] | | | | | | [phone] | | | | | | | | +--------+---------+ + + + documented as of this encounter Visit Diagnoses Not on filedocumented in this encounter
--- OUTSIDE RECORDS SUMMARY | ~2019-12-18 | XMS | Encounter Summary ---
Demographics + + + | Address | [address] | | | [place] [address] | + + + | Home Phone | | + + + | Preferred Language | Unknown | + + + | Marital Status | | + + + | Denominational Affiliation | 1073 | + + + | Race | White | + + + | Ethnic Group | Not or | + + + Author + + + | Author | [facility] | | | and [place] | + + + | Organization | [facility] | | | and [place] | + + + | Address | Unknown | + + + | Phone | Unavailable | + + + Support + + + + + | Name | Relationship | Address | Phone | + + + + + | Ryan Edler | ECON | [address] | | | | | [place] | | | | | [address] | | + + + + + Care Team Providers + +------+ + | Care Car Filler Name | Role | Phone | + +------+ + PCP | Unavailable | + +------+ + Encounter Details +--------+ + + + + | Date | Type | Department | Care Team | Description | +--------+ + + + + | 10/08/ | [facility] | [facility] | John Temple MD | | | 2003 | Encounter | MED CTR GENERIC OP | [address], [place] | | | | | CONV DEPT [address] | [address] [place], [place] | | | | | [place], | [address] | | | | | [place] [address] | | | | | | [phone] | | | +--------+ + + + [...] | | | | | | [place] [address] | | | | | | [phone] | | | | | | | | +--------+---------+ + + + documented as of this encounter Visit Diagnoses Not on filedocumented in this encounter"
--- OUTSIDE RECORDS SUMMARY | ~2019-12-18 | XMS | Encounter Summary ---
Demographics + + + | Address | [address] | | | [place] [address] | + + + | Home Phone [...] [place] | | | | | [address] | | + + + + + Care Team Providers + +------+ + | Care Medical Surgical Tech Name | Role | Phone | + +------+ + PCP | Unavailable | + +------+ + Encounter Details +--------+ + + + + | Date | Type | Department | Care Team | Description | +--------+ + + + + | 12/26/ | Hospital | [facility] | | | | 1997 | Encounter | MED CTR GENERIC OP | | | | | | CONV DEPT [address] | | | | | | [place], | | | | | | [place] [address] | | | | | | [phone] | | | +--------+ + + + [...] | | | | | | [place] [address] | | | | | | [phone] | | | | | | | | +--------+---------+ + + + documented as of this encounter Visit Diagnoses Not on filedocumented in this encounter"
--- OUTSIDE RECORDS SUMMARY | ~2019-12-18 | XMS | Encounter Summary ---
Demographics + + + | Address | [address] | | | [place] [address] | + + + | Home Phone | | + + + | Preferred Language | Unknown | + + + | Marital Status | | + + + | Zoroastrianism Affiliation | 1073 | + + + | Race | White | + + + | Ethnic Group | Not or | + + + Author + + + | Author | [facility] | | | and [place] | + + + | Organization | [facility] | | | [...] [place] | | | | | [address] | | + + + + + Care Team Providers + +------+ + | Care Police Chief Name | Role | Phone | + +------+ + | Hector Nielsen MD | PCP | | + +------+ + Reason for Visit +--------+ + | Reason | Comments | +--------+ + | Other | [facility] | +--------+ + Evaluate & Treat (Routine) + +--------+ [...] | | Other | Hector Snider, | MD [address] | | | | | amnesia | MD [address] | [address] | | | | | Other | [address] | [address] | | | | | specified | [place] | [place], | | | | | anxiety | [place] [address] | [place] [address] | | | | | disorders | Phone: | Phone: | | | | | | [phone] | [phone] | | | | | | Fax: | Fax: | | | | | | [phone] | [phone] | + +--------+ + + + + Encounter Details +--------+ + + + + | Date | Type | Department | Care Team | Description | +--------+ + + + + | 09/26/ | Clinical | [facility] | Geo Worley MD [address] | Memory loss (Primary | | 2020 | Support | NEUROLOGY [address] | Dx) | | | | [address] | [address] [place], | | | | | [place], [place] | [place] [id number] | | | | | [address] | [phone] | | | | | [phone] | | | +--------+ + + + [...] documented as of this encounter Progress Notes Rj Dye, Yeast Supervisor - 09/27/2019 9:30 AM PDT Dg's Cognitive Examination (LATRICE) Modified for [facility] ([facility]) The patient returns today for detailed cognitive evaluation for memory difficulty. Behavior Observations: The patient seemed alert (choose from the following: alert, engaged and attentive, drowsy. Add any other observations) during the examination. The examination processes was explained to the patient in detail. Test Procedure: The patient underwent detailed cognitive function evaluation which composed of visuospatial testing including overlapping pentagons, wire cube and draw a clock; language test includin g naming,comprehension (one-stage, three-stage, complex grammar), repetition (single works a nd phrases), reading (regular and irregular) and writing; orientation; attention and concent ration including immediate recall, calculation or spelling and memory testing including reca ll, anterograde memory, retrograde memory and verbal fluency. Test results: 1. Mini Mental Status Examination The examination included orientation, attention/concentration, recall, language and visuosp atial abilities. The patient received a score of 24 /30. 2. Total. [facility] score: 80/100 3. Orientation/Attention/Concentration 4. Memory 5. Verbal fluency 6. Language 7. Visuospatial abilities Total : 80 /100 VLOM-Ratio: V + SL = 5.57 O + M If VLOM-ratio < 2.2: Frontotemporal dementia. VLOM-ratio> 3.2 AD [facility] test with a total score of 80/100 MMSE total score of 24/30 with VLOM ration of 5.57 Normal cognition: 91+ Mild cognitive impairment: 84-90 Mild Alzheimer's disease: 70-83 Moderate Alzheimer's disease: 50-69 Severe Alzheimer's disease: 30-49 End stage Alzheimer's disease: <30 Idris mented in this encounter Plan of Treatment [...] | | | | | | [place] [id number] | | | | | | [phone] | | | | | | | | +--------+---------+ + + + documented as of this encounter Visit Diagnoses + + | Diagnosis | + + | Memory loss - Primary | + + documented in this encounter
--- OUTSIDE RECORDS SUMMARY | ~2019-12-18 | XMS | Encounter Summary ---
Demographics + + + | Address | [address] | | | [place] [address] | + + + | Home Phone | | + + + | Preferred Language | Unknown | + + + | Marital Status | | + + + | Yarsanism Affiliation | 1073 | + + + [...] [place] | | | | | [address] | | + + + + + Care Team Providers + +------+ + | Care Clinical Allergist Name | Role | Phone | + [...] | [address] | [address] | | | | | MRI | [place] | [place], | | | | | Procedures | [place], [place] | [place] | | | | | [place] Bone Scan | [id number] | [address] | | | | | 3 Phase | Phone: | Phone: | | | | | | [phone] | [phone] | | | | | | Fax: | Fax: | | | | | | [phone] | [phone] | +--------+--------+ + + + + Encounter Details +--------+ + + + + | Date | Type | Department | Care Team | Description | +--------+ + + + + | 12/01/ | Orders Only | [facility] | Dany Terrazas, | Bone lesion (Primary | | 2017 | | ORTHOPEDIC SURGERY | [address] | Dx); Abnormal MRI | | | | [address] | [place] | | | | | [place] | [address] | | | | | [address] | | | | | | [phone] | | | +--------+ + + + [...] | | 2020 | Visit | | [employer] | | | | | | [address] [place], | | | | | | [place] [address] | | | | | | [phone] | | | | | | | | +--------+---------+ + + + documented as of this encounter Results NM Bone Scan 3 [...] Diagnosis | + + | Bone lesion - Primary Disorder of bone and cartilage, unspecified | + + | Abnormal MRI Other nonspecific (abnormal) findings on radiological and other | | examinations of body structure | + + documented in this encounter
--- OUTSIDE RECORDS SUMMARY | ~2019-12-18 | XMS | Encounter Summary ---
Demographics + + + | Address | [address] | | | [place] [address] | + + + | Home Phone | | + + + | Preferred Language | Unknown | + + + | Marital Status | | + + + | Moravian Affiliation | 1073 | + + + | Race | White | + + + | Ethnic Group | Not or | + + + Author + + + | Author | [facility] | | | and [place] | + + + | Organization | [facility] | | [...] [place] | | | | | [address] | | + + + + + Care Team Providers + +------+ + | Care Inside Sales Coordinator Name | Role | Phone | [...] | John Rose MD | [address] | | | | | loss, | [address] | [place], | | | | | unintentiona | [place], [place] | [place] | | | | | l Diarrhea, | [address] [place] | [address] | | | | | unspecified | [place], [place] | Phone: | | | | | type | [address] | [phone] | | | | | Procedures | Phone: | Fax: | | | | | MRI | [phone] | [phone] | | | | | Enterography | Fax: | | | | | | w wo | [phone] | | | | | | Contrast MS | | | | | | | MRI, | | | | | | | ABDOMEN, | | | | | | | COMBO MS | | | | | | | [...] | John Rose MD | [address] | | | | | loss, | [address] | [place], | | | | | unintentiona | [place], [place] | [place] | | | | | l Diarrhea, | [address] [place] | [address] | | | | | unspecified | [place], [place] | Phone: | | | | | type | [address] | [phone] | | | | | Procedures | Phone: | Fax: | | | | | MRI | [phone] | [phone] | | | | | Enterography | Fax: | | | | | | w wo | [phone] | | | | | | Contrast MS | | | | | | | MRI, | | | | | | | ABDOMEN, | | | | | | | COMBO MS | | | | | | | MRI, PELVIS, | | | | | | | COMBO | | | +--------+--------+ + + + + Encounter Details +--------+ + + + + | Date | Type | Department | Care Team | Description | +--------+ + + + + | 05/28/ | Hospital | [facility] | John Temple MD | Weight loss, | | 2018 | Encounter | MED CTR MRI [address] | [address], [place] | unintentional; | | | | [place], | [address] [place], [place] | Diarrhea, | | | | [place] [address] | [address] | unspecified type | | | | [phone] | | | | | | | Nurse, [facility] | | +--------+ + + + + [...] | | 0 | | | | [id number]-[id number] | mouth. | | | | | [...] + + + +---------+ + + | lovastatin | Take 20 mg by mouth | | 0 | | | | (MEVACOR) 20 mg | nightly. | | | | 8 | | tablet | | | | [...] + + + +---------+ + + | Probiotic Product | Take 1 capsule by | | 0 | | | | (PROBIOTIC FORMULA) | mouth as needed. | | | | 8 | | capsule | | | | | | + + + +---------+ + + | rivaroxaban | Take 20 mg by mouth | | 0 | | | | (XARELTO) 20 mg | Daily. | | | | 0 | | tablet | | | | | | + + + +---------+ + + | sertraline | 1 and 2 tablet by | | 0 | 12/09/19 [...] | 2020 | Visit | | [address] | | | | | | [address] [place], | | | | | | [place] [address] | | | | | | [phone] | | | | | | | | +--------+---------+ + + + documented as of this encounter Procedures + +--------+ + + + | Procedure Name | Priori | Date/Time | Associated Diagnosis | Comments | | | ty | | | | + +--------+ + + + | MRI ENTEROGRAPHY W | Routin | 05/28/2017 | Weight loss, | Results for this | | WO CONTRAST | e | 10:34 AM | unintentional | procedure are in the | | | | PST | Diarrhea, | results section. | | | | | unspecified type | | + +--------+ + + + documented in this encounter Results MRI Enterography w wo [...] | + + | Weight loss, unintentional Loss of weight | + + | Diarrhea, unspecified type | + + documented in this encounter Administered Medications + +--------+ +---------+------+------+ | Medication Order | MAR | Action | Dose | Rate | Site | | | Action | Date | | | | + +--------+ +---------+------+------+ | gadobutrol (GADAVIST) injection | Given | 05/29/19 | 7.5 mLs | | | | 7.5 mL 7.5 mL, Intravenous, | | 18 10:36 | | | | | ONCE PRN, Other, Starting Fri | | AM PST | | | | | 05/28/17 at 1035, For 1 dose, MRI | | | | | | + +--------+ +---------+------+------+ +---+---+ | | | +---+---+ + +-------+ +------+---+ + | glucagon (GLUCAGEN) injection 1 | Given | 05/29/19 | 1 mg | | Deltoid- | | mg 1 mg, Intramuscular, ONCE, | | 18 10:02 | | | Left | | 05/28/17 at 1015, For 1 dose | | AM PST | | | | + +-------+ +------+---+ + +---+---+ | | | +---+---+ documented in this encounter
--- OUTSIDE RECORDS SUMMARY | ~2019-12-18 | XMS | Encounter Summary ---
Demographics + + + | Address | [address] | | | [place] [address] | + + + | Home Phone [...] [place] | | | | | [address] | | + + + + + Care Team Providers + +------+ + | Care Pharmacy Technician Program Director Name | Role | Phone | + +------+ + | Avi Herman MD | PCP | | + +------+ + Encounter Details +--------+---------+ + + + | Date | Type | Department | Care Team | Description | +--------+---------+ + + + | 04/14/ | Surgery | [facility] | John Temple MD | EGD | | 2017 | | MED [facility] OP | [address], [place] | | | | | [address] | [address] [place], [place] | | | | | [place], [place] | [address] | | | | | [address] | | | | | | [phone] | | | +--------+---------+ + + + [...] + + + | Blood Pressure | 119/78 | 07/10/2016 8:39 AM | | | | | PDT | | + + + + + | Pulse | 67 | 07/10/2016 8:39 AM | | | | | PDT | | + + + + + | Temperature | 36.4 C (97.5 F) | 07/10/2016 8:39 AM | | | | | PDT | | + + + + + | Respiratory Rate | 18 | 07/10/2016 8:39 AM | | | | | PDT | | + + + + + | Oxygen Saturation | 100% | 07/10/2016 8:39 AM | | | | | PDT | | + + + + + | Inhaled Oxygen | - | - | | | Concentration | | | | + + + + + | Weight | 59.9 kg (132 lb) | 07/10/2016 8:39 AM | | | | | PDT | | + + + + + | Height | 167.6 cm (5' 6") | 07/10/2016 8:39 AM | | | | | PDT | | + + + + + | Body Mass Index | 21.31 | 07/10/2016 8:39 AM | | | | | PDT | | + + + + + documented in this encounter Medications at Time of Discharge + + + +---------+ + + | Medication | Sig | Dispensed | Refills | Start | End Date | | | | | | Date | | + + + +---------+ + + | | Take 1,500 mg by | | 0 | | | | Rfuytvn-Zfxwpfrqv-Fz | mouth. 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 Antibiotics have been administeredElectronically signed by John Temple MD at 017 10:30 AM PDTJohn Temple MD - 07/09/2016 8:57 AM PDT PRE-ENDOSCOPY HISTORY AND PRE-SEDATION ASSESSMENT PATIENT NAME: Bekah Elder : 1950 TODAY'S DATE: 07/10/2016 PLANNED PROCEDURE: upper endoscopy and colonoscopy PERTINENT HISTORY/INDICATION FOR PROCEDURE: Bekah Elder is a 65 y.o. female who is undergoing upper endoscopy and colonoscopy for evaluation of reflux and change in bowel habits. The patient has had a change in bowel pattern over the past year. She reports that she has looser stools up to 3-4 times a day 2-3 times a week. She has urgency and has had occasional episodes of fecal soiling. She denies nocturnal symptoms. She denies blood o r mucus in the stool. She's had no abdominal pain. Foods that used to precipitate her sy mptomatology include salads or roughage. She has avoided foods and has continued to have a change in her bowel pattern. She does not consume caffeinated beverages nonabsorbable sug ars or simple sugars. She has had no change in her medications except for the addition of Xarelto which has been for several years. 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 The patient previously had constipation w hich was successfully treated with probiotics The patient also has symptoms of reflux. Typical retrosternal burning usually associated with spicy foods or eating late at night. She is on no prescription medications for the sa me but does take Gaviscon on a regular basis. She denies dysphagia or odontophagia denies symptoms of aspiration supra-esophageal manifestations of reflux such as voice change aspira tion etc. upper endoscopy in 2006 was positive for gastroparesis. 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 Review of the chart shows total knee replacement September 2015. Her orthopedic surgeon told t he patient that she should take prophylactic antibiotics. Atrial fibrillation,flutter on c hronic anticoagulation Xarelto past history of ablation; anxiety depression. The patient r eports that any stress precipitates an onset of atrial fibrillation and is concerned that th e prep and/or procedure may precipitate the same.Will have patient remain on the Xaralto d ue to atrial flutter. 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 Bob Knee arthroscopy Left 2011 Knee joint replacement Left 08/08/2014 Dr. Beltran Cataract removal Vagina surgery Colonoscopy Tonsillectomy HOME MEDS: Prior to Admission medications Medication Sig Taking? Nynppcu-Vnbeqqqkg-Ihxigyu D (CITRACAL SLOW RELEASE) 600-40-500 MG-MG-UNIT TB24 Take 1,500 m g by mouth. cholecalciferol (VITAMIN D-3) 400 units TABS Take 400 Units by mouth Daily. Patient taking differently: Take 2,000 Units by mouth Daily. estradiol (VAGIFEM) [address] 10 mcg vaginally Daily. ipratropium (ATROVENT) 0.06% nasal spray INSTILL TWO SPRAYS IN EACH NOSTRIL UP TO FOUR TIME S DAILY NEEDED lovastatin (MEVACOR) 20 mg tablet Take 20 mg by mouth nightly. Lysine 500 MG CAPS Take 1,000 mg by mouth Daily. mupirocin (BACTROBAN) 2% ointment Apply topically to the nose as directed. Polyethylene Glycol 400 (BLINK TEARS OP) Apply to eye 2 times daily. rivaroxaban (XARELTO) 20 mg tablet Take 20 mg by mouth Every other day. sertraline (ZOLOFT) 50 mg tablet 1 and 1/2 tablet by mouth daily Patient taking differently: Take 125 mg by mouth Daily. ALLERGIES Allergies Allergen Reactions Moexipril Hydrochloride Shortness Of Breath AKA Univasc Metoclopramide Other (See Comments) depression ASA CLASSIFICATION:3 EXAMINATION: Blood pressure 119/78, pulse 67, temperature 36.4 C (97.5 F), temperature source Tempor al, resp. rate 18, height 1.676 m (5' 6"), weight 59.875 kg (132 lb), SpO2 100 %. General: Alert and orientedx3 Throat: Normal Lungs: Clear Heart: Regular rate and rhythm with out significant murmur Abdomen: flat, normal bowel sounds. Soft, nontender 1. Available medical records have been reviewed. [facility] 04/27/2016 2. Medication list reviewed. IMPRESSION: history of Page's metaplasia of the general reflux history of colonic polyp s. Patient appropriate for procedures. PLAN: 1. Proceed with procedure as stated above with propofol sedation/analgesia due to atrial fl utter on Xeralto. 2. Procedure, indications, risks and alternatives explained to patient/family and they agre ed to proceed and consent was signed. 3. Patient will be reevaluated immediately (1-2 minutes) before sedation administration and approved for the plan as stated above. Electronically Signed by: John Temple MD 07/10/2016 [facility] Portions of this chart may have been created with [employer] voice recognition software. Occasi onal wrong-word or sound-alike substitutions may have occurred due to the inherent gamboa itations of voice recognition software. Please read the chart carefully and recognize, using context, where these substitutions have occurred documented in this enc ounter Miscellaneous Notes Op Note - John Temple MD - 07/10/2016 11:11 AM PDTUpper endoscopy was remarkable for in a regular Z and 38 cm. Biopsies were obtained did NBI images showing possible Page's metaplasia. T here was no excessive bleeding noted with esophageal biopsies. Gastroparesis was present H. pylori biopsy was obtained. Duodenal mucosa. Normal but biopsies obtained for celiac spru e per protocol. Colonoscopy was remarkable for Flaquito redundancy of entire colon. Mucosal se rvices appeared normal. Right and left colonic biopsies were obtained for microscopic colit is colitis as were stool for stool studies. It is noted that multiple biopsies were obtaine d after initial test biopsy for H. pylori showed no excessive bleeding. No excessive bleedi ng was noted in multiple biopsy sitesElectronically signed by John Temple MD at 7 11:12 AM PDTD-C Instructions Provation - John Temple MD - 07/10/2016 10:20 AM PDTDisch arge Instructions for Upper Endoscopy Patient: Bekah Elder : 1950 Acct: [id number] Exam Date: Sunday, July 10, 2016 Doctor: John Temple MD The chances of difficulty following this procedure are minimal. The following instruction s will assist you in your recovery. 1. Do Not eat or drink anything for 1 hour. Try sips of water first. If tolerated, resu me your regular diet or one recommended by your physician. 2. Do not drive, operate cuate angel, make critical decisions, or do activities that require coordination or balance for 24 hours. 3. You may experience a sore throat for 24 - 48 hours. You may use throat lozenges or ga rgle with warm salt water to relieve the discomfort. 4. Because air was put into your stom ach druing the procedure, you may experience some belching. 5. Do not use any medication containing aspirin for 10 days, unless otherwise directed by your physician. 6. Sometimes the medications given to you druing the exam can aggravate the veins. The c hemical irritation can cause inflammation or pain along the arm with redness, swelling and warmth. This does not mean there is an infection. You can treat the affected area by appl hannah warm, wet compresses (towels) 4 times a day for 20 minutes at a time until inflammatio n is resolved 7. Report to your doctor: Chills and/or fever over 100 Persistent vomiting or vomiting with blood/nasal regurgitation Severe abdominal pain, othe r than gas cramps Severe chest pain Black, tarry stools You may reach your physician at Work: . If unable to reach your physician, call [facility] Emergency Department at Ext. [phone] Your doctor recommends these additional instructions: You have a contact number available for emergencies. The signs and symptoms of potential delayed complications were discussed with you. You may return to normal activities tomorro w. Written discharge instructions were provided to you. You are being discharged to home. Resume your previous diet today. Continue your present medications. We are waiting for your pathology results. Your physician has recommended a colonoscopy today. Return to your primary care physician as previously scheduled. Telephone your GI clinic fo r pathology results in one week. Telephone your GI clinic if symptoms are present. These instructions have been explained to the patient and/or escort. A copy has been give n to the patient/escort. Nurse Signatur e Patient Signature Escort Signatu re Date John Temple MD 07/10/2016 11:18:53 AM This report has been signed electronically.Electronically signed by John Temple MD at 11:19 AM PDTD-C Instructions Provation - John Temple MD - 07/10/2016 10:10 AM P DTDischarge Instructions for Colonoscopy Exams Patient: Bekah Elder : 1950 Acct: [id number] Exam Date: Sunday, July 10, 2016 Doctor: John Temple MD You have had an examination of the gastrointestinal tract. The chances of difficulty foll owing this procedure are minimal. The following instructions will assist you in your recov angel. ACTIVITIES: Rest quietly until sedation wears off. DO NOT drive a motor vehicle or operate machinery for 24 hours after sedation. Be cautious making critical decisions for 24 hours after sedation. DIET: If throat has been sprayed, do not eat or drink for 1 hour after. Start with a swallow of tap water, if you experience any lack of sensation in your throat, wait another 30 - 60 min utes and start with water again. Once swallowing has returned to normal you may resume your usual diet unless otherwise instructed by your physician. DISCOMFORT: If you had a bowel exam, you may have some abdominal discomfort from the air put into your bowel during the exam. Moving about will help you pass this air. Sometimes the medication s given to you during the exam can aggravate the veins. The chemical irritation can cause inflammation or pain along the arm with redness, swelling and warmth. This does not mean t here is an infection. You can treat the affected area by applying warm,wet compresses (tow els) 4 times a day for 20 minutes at a time until inflammation is resolved. REPORT TO YOUR DOCTOR: Unusual abdominal pain Chest pain or unusual shortness of breath Shoulder pain Nausea, vomiting Fever over 100 degrees, chills Signs of rectal bleeding (red or black stools) Any concern you have resulting from procedure You may reach your physician at Work: . If unable to reach your physician, call [facility] Emergency Department at Ext. [phone] Your doctor recommends these additional instructions: You have a contact number available for emergencies. The signs and symptoms of potential delayed complications were discussed with you. You may return to normal activities tomorro w. Written discharge instructions were provided to you. You are being discharged to home. Resume your previous diet today. Continue your present medications. We are waiting for your pathology results. Return to your primary care physician as previously scheduled. Telephone your GI clinic fo r pathology results in one week. Telephone your GI clinic if symptoms are present. These instructions have been explained to the patient and/or escort. A copy has been give n to the patient/escort. Nurse Signatavi e Patient Signature Escort Signatu re Date John Temple MD 07/10/2016 11:28:47 AM This report has been signed electronically.Electronically signed by John Temple MD at 11:29 AM PDTdocumented in this encounter Plan of Treatment +--------+---------+ + + + | Date | Type | Specialty | Care Team | Description | +--------+---------+ + + + | 01/07/ | Office | Neurology | Geo Worley MD [address] | | | [address] | Visit | | [address] | | | | | | [place] | | | | | | [place] [address] | | | | | | [phone] | | | | | | | | +--------+---------+ + + + documented as of this encounter Procedures + +--------+ + + + | Procedure Name | Priori | Date/Time | Associated Diagnosis | Comments | | | ty | | | | + +--------+ + + + | LACTOFERRIN, FECAL, | Routin | 07/10/2016 | | Results for this | | QUAL | e | 10:50 AM | | procedure are in the | | | | PDT | | results section. | + +--------+ + + + | CAMPYLOBACTER | Routin | 07/10/2016 | | Results for this | | AG,QUAL | e | 10:49 AM | | procedure are in the | | | | PDT | | results section. | + +--------+ + + + | CULTURE, STOOL | Routin | 07/10/2016 | | Results for this | | RESULT | e | 10:49 AM | | procedure are in the | | | | PDT | | results section. | + +--------+ + + + | SHIGATOXIN 1 AND 2 | Routin | 07/10/2016 | | Results for this | | | e | 10:49 AM | | procedure are in the | | | | PDT | | results section. | + +--------+ + + + | OVA AND PARASITE | Routin | 07/10/2016 | | Results for this | | EXAMINATION | e | 10:49 AM | | procedure are in the | | | | PDT | | results section. | + +--------+ + + + | CRYPTOSPORIDIUM AG | Routin | 07/10/2016 | | Results for this | | | e | 10:49 AM | | procedure are in the | | | | PDT | | results section. | + +--------+ + + + | GIARDIA AG, EIA, | Routin | 07/10/2016 | | Results for this | | STOOL | e | 10:49 AM | | procedure are in the | | | | PDT | | results section. | + +--------+ + + + | CLOSTRIDIUM | Routin | 07/10/2016 | | Results for this | | DIFFICILE A AND B | e | 10:49 AM | | procedure are in the | | EIA | | PDT | | results section. | + +--------+ + + + | CULTURE, STOOL | Routin | 07/10/2016 | | Results for this | | | e | 10:49 AM | | procedure are in the | | | | PDT | | results section. | + +--------+ + + + | HELICOBACTER PYLORI | Routin | 07/10/2016 | | Results for this | | BIOPSY | e | 10:34 AM | | procedure are in the | | | | PDT | | results section. | + +--------+ + + + | COLONOSCOPY | | 07/10/2016 | Gastroesophageal | | | | | 10:25 AM | reflux disease, | | | | | PDT | esophagitis presence | | | | | | not specified | | | | | | (K21.9), Diarrhea, | | | | | | unspecified type | | | | | | (R19.7), Atrial | | | | | | fibrillation, | | | | | | unspecified type | | | | | | ([facility]) (I48.91), | | | | | | Personal history of | | | | | | colonic polyps | | | | | | (Z86.010), Advanced | | | | | | Age (R54) | | + +--------+ + + + | EGD | | 07/10/2016 | Gastroesophageal | | | | | 10:25 AM | reflux disease, | | | | | PDT | esophagitis presence | | | | | | not specified | | | | | | (K21.9), Diarrhea, | | | | | | unspecified type | | | | | | (R19.7), Atrial | | | | | | fibrillation, | | | | | | unspecified type | | | | | | ([facility]) (I48.91), | | | | | | Personal history of | | | | | | colonic polyps | | | | | | (Z86.010), Advanced | | | | | | Age (R54) | | + +--------+ + + + | EGD | Routin | 07/10/2016 | | Results for this | | | e | 10:20 AM | | procedure are in the | | | | PDT | | results section. | + +--------+ + + + | ECG 12 LEAD | STAT | 07/10/2016 | | Results for this | | | | 10:16 AM | | procedure are in the | | | | PDT | | results section. | + +--------+ + + + | COLONOSCOPY | Routin | 07/10/2016 | | Results for this | | | e | 10:10 AM | | procedure are in the | | | | PDT | | results section. | + +--------+ + + + | SURGICAL PATHOLOGY | Routin | 07/10/2016 | | Results for this | | EXAM | e | 12:00 AM | | procedure are in the | | | | PDT | | results section. | + +--------+ + + + documented in this encounter Results Lactoferrin, Fecal, Qual (07/10/2016 10:50 AM PDT) + + + + + + | Component | Value | Ref Range | Performed | Pathologist | | | | | At | Signature | + + + + + + | Lactoferrin | Negative | Negative | [facility] | | | , Qual | | | [facility] | | | | | | [facility] | | | | | | CENTER - | | | | | | LABORATORY | | + + + + + + + + | Specimen | + + | Stool - Stool | | specimen (specimen) | + + + + + + + | Performing | Address | City/State/Zipcode | Phone Number | | Organization | | | | + + + + + | [facility] | [address] | [place] | [phone] | | [facility] | | [address] | | | - LABORATORY | | | | + + + + + Campylobacter Ag,Qual (07/10/2016 10:49 AM PDT) + + + + + + | Component | Value | Ref Range | Performed | Pathologist | | | | | At | Signature | + + + + + + | Campylobact | Positive (A)Comment: | Negative | [facility] | | | er AG, Qual | Result called to and | | [facility] | | | | read back by Martha | | MEDICAL | | | | Janeth on 07/10/2016 | | CENTER - | | | | at 12:56 by Anton Aguirre. | | LABORATORY | | | | THIS IS A REPORTABLE | | | | | | DISEASEPlease report | | | | | | to [facility] | | | | | | Department at | | | | | | [phone] within 24 | | | | | | hours. | | | | + + + + + + + + | Specimen | + + | Stool - Stool | | specimen (specimen) | + + + + + + + | Performing | Address | City/State/Zipcode | Phone Number | | Organization | | | | + + + + + | [facility] | [address] | [place] | [phone] | | [facility] | | [address] | | | - LABORATORY | | | | + + + + + Culture, Stool Result (07/10/2016 10:49 AM PDT) + + + + + + | Component | Value | Ref Range | Performed | Pathologist | | | | | At | Signature | + + + + + + | Culture | No Salmonella, Shigella, | | [facility] | | | | Aeromonas, Plesiomonas, | | [facility] | | | | E. coli O157 or | | MEDICAL | | | | Yersinia isolated. | | CENTER - | | | | | | LABORATORY | | + + + + + + | Culture | 1+ Mixed Gram Positive | | [facility] | | | | FloraComment: Consistent | | [facility] | | | | with usual enteric | | MEDICAL | | | | blair.No gram negative | | CENTER - | | | | enteric blair isolated | | LABORATORY | | + + + + + + + + | Specimen | + + | Stool - Stool | | specimen (specimen) | + + + + + + + | Performing | Address | City/State/Zipcode | Phone Number | | Organization | | | | + + + + + | [facility] | [address] | [place] | [phone] | | [facility] | | [address] | | | - LABORATORY | | | | + + + + + Shigatoxin 1 and 2 (07/10/2016 10:49 AM PDT) + + + + + + | Component | Value | Ref Range | Performed | Pathologist | | | | | At | Signature | + + + + + + | Shigatoxin | Negative | Negative | [facility] | | | 1 | | | [facility] | | | | | | MEDICAL | | | | | | CENTER - | | | | | | LABORATORY | | + + + + + + | Shigatoxin | Negative | Negative | [facility] | | | 2 | | | [facility] | | | | | | MEDICAL | | | | | | CENTER - | | | | | | LABORATORY | | + + + + + + + + | Specimen | + + | Stool - Stool | | specimen (specimen) | + + + + + + + | Performing | Address | City/State/Zipcode | Phone Number | | Organization | | | | + + + + + | [facility] | [address] | [place] | [phone] | | [facility] | | [address] | | | - LABORATORY | | | | + + + + + Ova and Parasite Examination (07/10/2016 10:49 AM PDT) + + + + + + | Component | Value | Ref Range | Performed | Pathologist | | | | | At | Signature | + + + + + + | O/P IDENT | See CommentsComment: | | [facility]FER[facility] | | | | Accession No. | | [facility] | | | | | | | | | | [id number] | | | | | | Source | | | | | | StoolResult | | | | | | | | | | | | Fecal | | | | | | leukocytes seen | | | | | | | | | | | | No Ova | | | | | | or Parasites seen | | | | | | | | | | | | This | | | | | | test will not detect | | | | | | Cyclospora, | | | | | | | | | | | | | | | | | | Cryptosporidium or | | | | | | Cystoisospora | | | | | | | | | | | | | | | | | | (Isospora). For these | | | | | | organisms | | | | | | | | | | | | refer to | | | | | | Coccidia Stain (test | | | | | | code | | | | | | | | | | | | CRYSM). | | | | + + + + + + | O/P REPORT | Report Status | | REFERENCE | | | STAT | Final | | [facility] | | | | 07/12/2016Comment: | | | | | | Testing Performed: | | | | | | [facility] | | | | | | [facility], [address] | | | | | | [place] [address] | | | | + + + + + + + + | Specimen | + + | Stool specimen | | (specimen) - Stool | + + + + + + + | Performing | Address | City/State/Zipcode | Phone Number | | Organization | | | | + + + + + | [facility] | [address] | [place] [address] | [phone] | + + + + + Clostridium difficile A and B EIA (07/10/2016 10:49 AM PDT) + + + + + + | Component | Value | Ref Range | Performed | Pathologist | | | | | At | Signature | + + + + + + | Clostridium | NegativeComment: | Negative | [facility] | | | Difficile | Negative for toxigenic | | [facility] | | | [facility] Antigen | Clostridium difficile | | MEDICAL | | | | | | CENTER - | | | | | | LABORATORY | | + + + + + + | C. Diff | NegativeComment: No data | Negative | [facility] | | | Toxin A/B | exists on the effects | | [facility] | | | EIA | of colonic washes, | | MEDICAL | | | | barium enemas, | | CENTER - | | | | laxatives, or bowel | | LABORATORY | | | | preparations on the | | | | | | performance of this | | | | | | test. All of these | | | | | | procedures can result in | | | | | | extensive dilution or | | | | | | the presence of | | | | | | additives that may | | | | | | affect test performance. | | | | + + + + + + + + | Specimen | + + | Stool - Stool | | specimen (specimen) | + + + + + + + | Performing | Address | City/State/Zipcode | Phone Number | | Organization | | | | + + + + + | [facility] | [address] | [place] | [phone] | | [facility] | | [address] | | | - LABORATORY | | | | + + + + + Giardia Ag, EIA, Stool (07/10/2016 10:49 AM PDT) + + + + + + | Component | Value | Ref Range | Performed | Pathologist | | | | | At | Signature | + + + + + + | Giardia | Negative | Negative | [facility] | | | Antigen, | | | [facility] | | | Stool | | | MEDICAL | | | | | | CENTER - | | | | | | LABORATORY | | + + + + + + + + | Specimen | + + | Stool - Stool | | specimen (specimen) | + + + + + + + | Performing | Address | City/State/Zipcode | Phone Number | | Organization | | | | + + + + + | [facility] | [address] | [place] | [phone] | | [facility] | | [address] | | | - LABORATORY | | | | + + + + + Cryptosporidium Ag (07/10/2016 10:49 AM PDT) + + + + + + | Component | Value | Ref Range | Performed | Pathologist | | | | | At | Signature | + + + + + + | Cryptospori | Negative | Negative | [facility] | | | dium | | | [facility] | | | Antigen | | | MEDICAL | | | | | | CENTER - | | | | | | LABORATORY | | + + + + + + + + | Specimen | + + | Stool - Stool | | specimen (specimen) | + + + + + + + | Performing | Address | City/State/Zipcode | Phone Number | | Organization | | | | + + + + + | [facility] | [address] | [place] | [phone] | | [facility] | | [address] | | | - LABORATORY | | | | + + + + + Helicobactor pylori Biopsy (07/10/2016 10:34 AM PDT) + + + + + + | Component | Value | Ref Range | Performed | Pathologist | | | | | At | Signature | + + + + + + | Helicobacte | Negative | Negative | [facility] | | | r pylori Ag | | | [facility] | | | | | | MEDICAL | | | | | | CENTER - | | | | | | LABORATORY | | + + + + + + + + | Specimen | + + | Tissue - Entire | | pyloric antrum (body | | structure) | + + + + + + + | Performing | Address | City/State/Zipcode | Phone Number | | Organization | | | | + + + + + | [facility] | [address] | [place] | [phone] | | [facility] | | [address] | | | - LABORATORY | | | | + + + + + EGD (07/10/2016 10:20 AM PDT) + + | Specimen | + + | | + + + + -+ | Narrative | Performed At | + + -+ | | [facility] | | GastroenterologyPatient Name: Bekah Tri Date: 07/10/2016 | [facility] | | 10:20 AMMRN: [id number] #: [id number] of : | | | 9Admit Type: AmbulatoryAge: 65[facility]Gender: FemaleNote | | | Status: FinalizedAttending MD: MARGY Barronrocedure: | | | Upper GI endoscopyIndications: Esophageal reflux, | | | Follow-up of esophageal reflux, DiarrheaProviders: John | | | Elias Temple MD, Shauna Fowler RN, Toño Heard | | | EDWARDO Stoddard Richard Randall Wick, MD (Anesthesia | | | Staff)Referring MD: Avi Herman MD (Referring | | | MD)Medicines: Sedation Required Anesthesia Staff | | | AssistanceComplications: No immediate complications. Estimated | | | blood loss: Minimal.Procedure: Pre-Anesthesia Assessment: | | | - Prior to the procedure, a History and Physical was performed, and | | | patient medications, allergies and sensitivities were reviewed. | | | The patient's tolerance of previous anesthesia was reviewed. | | | - Prior to the procedure, a History and Physical was performed, | | | and patient medications and allergies were reviewed. The | | | patient is competent. The risks and benefits of the procedure | | | and the sedation options and risks were discussed with the | | | patient. All questions were answered and informed consent was | | | obtained. Patient identification and proposed procedure were | | | verified by the physician, the nurse, the anesthesiologist and | | | the office machine technician in the endoscopy suite. Mental Status | | | Examination: alert and oriented. Airway Examination: normal | | | oropharyngeal airway and neck mobility and Mallampati Class II (the | | | uvula but not tonsillar pillars visualized). Respiratory | | | Examination: clear to auscultation. CV Examination: regular | | | rate and rhythm. 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 Prior Anticoagulants: The patient has taken | | | Xarelto (rivaroxaban), last dose was day of procedure. ASA | | | Grade Assessment: III - A patient with severe systemic disease. | | | After reviewing the risks and benefits, the patient was deemed | | | in satisfactory condition to undergo the procedure. The | | | anesthesia plan was to use monitored anesthesia care (MAC). | | | Immediately prior to administration of medications, the patient | | | was re-assessed for adequacy to receive sedatives. The heart | | | rate, respiratory rate, oxygen saturations, blood pressure, | | | adequacy of pulmonary ventilation, and response to care were | | | monitored throughout the procedure. The physical status of the | | | patient was re-assessed after the procedure. - After reviewing | | | the risks and benefits, the patient was deemed in satisfactory | | | condition to undergo the procedure. - Using IV propofol under | | | the supervision of an anesthesiologist was determined to be | | | medically necessary for this procedure based on age 65 or | | | older, severe comorbidity (greater than ASA Grade II), prolonged | | | procedure requiring deep sedation and patient's history of problems | | | with anesthesia. - Immediately prior to administration | | | of medications, the patient was re-assessed for adequacy to | | | receive sedatives. - The heart rate, respiratory rate, oxygen | | | saturations, blood pressure, adequacy of pulmonary ventilation, | | | and response to care were monitored throughout the procedure. | | | - The physical status of the patient was re-assessed after the | | | procedure. After obtaining informed consent, the endoscope was | | | passed under direct vision. Throughout the procedure, the | | | patient's blood pressure, pulse, and oxygen saturations were | | | monitored continuously. The Endoscope was introduced through | | | the mouth, and advanced to the third part of duodenum. The | | | upper GI endoscopy was accomplished without difficulty. The | | | patient tolerated the procedure well.Findings: The | | | cricopharyngeus, upper third of the esophagus, middle third of the | | | esophagus and lower third of the esophagus were normal. The | | | Z-line was irregular and was found 38 cm from the incisors. Biopsies | | | were taken with a cold forceps for histology. Verification of | | | patient identification for the specimen was done. Estimated | | | blood loss was minimal. Suspect gastroparesis due to | | | absence of peristalsis. Biopsies were taken with a cold forceps | | | for Helicobacter pylori testing using CLOtest. Verification of | | | patient identification for the specimen was done. Estimated | | | blood loss was minimal. The duodenal bulb, first portion of the | | | duodenum, second portion of the duodenum, area of the papilla | | | and third portion of the duodenum were normal. Biopsies for | | | histology were taken with a cold forceps for evaluation of | | | celiac disease. Verification of patient identification for the | | | specimen was done. Estimated blood loss was minimal. The | | | retroflexed view confirmed previous findings,Impression: - | | | Normal cricopharyngeus, upper third of esophagus, middle third of | | | esophagus and lower third of esophagus. - Z-line irregular, | | | 38 cm from the incisors. Biopsied. - Gastroparesis. Biopsied. | | | - Normal duodenal bulb, first portion of the duodenum, second | | | portion of the duodenum, area of the papilla and third portion | | | of the duodenum. Biopsied. - The retroflexed view | | | confirmed previous findings, - After a test biopsy for H. pylori | | | to see if there would be excessive bleeding which there was | | | not biopsies were obtained have the duodenum mucosa in of the | | | distal esophagus.Recommendation: - Patient has a contact number | | | available for emergencies. The signs and symptoms of potential | | | delayed complications were discussed with the patient. Return | | | to normal activities tomorrow. Written discharge instructions | | | were provided to the patient. - Discharge patient to home | | | (ambulatory). - Resume previous diet today. - Continue | | | present medications. - Await pathology results. - Perform | | | a colonoscopy today. - Return to primary care physician as | | | previously scheduled. - Telephone GI clinic for pathology | | | results in 1 week. - Telephone GI clinic if symptomatic.John Griffin | | | MD Windy07/10/2016 11:18:53 AMThis report has been signed | | | electronically.Number of Addenda: 0Note Initiated On: 07/10/2016 10:20 | | | AMTotal Procedure Duration: 0 hours 8 minutes 53 seconds Scope In: | | | 10:32:15 AMScope Out: 10:41:08 AM [facility] | | | [place], [address] [place] [id number] | | | - Resume previous diet today. | | | - Continue present medications. | | | - Await pathology results. | | | - Perform a colonoscopy today. | | | - Return to primary care physician as previously scheduled. | | | - Telephone GI clinic for pathology results in 1 week. | | | - Telephone GI clinic if symptomatic. | | |John Temple MD | | |07/10/2016 11:18:53 AM | | |This report has been signed electronically. | | |Number of Addenda: 0 | | |Note Initiated On: 07/10/2016 10:20 AM | | |Total Procedure Duration: 0 hours 8 minutes 53 seconds | | |Scope In: 10:32:15 AM | | |Scope Out: 10:41:08 AM | | | [facility] [address] [place], [place] | | | [address] | | + + -+ + +---------+ + + | Performing | Address | City/State/Zipcode | Phone Number | | Organization | | | | + +---------+ + + | [facility] | | | | + +---------+ + + ECG 12 lead (07/10/2016 10:16 AM PDT) + + + + + + | Component | Value | Ref Range | Performed | Pathologist | | | | | At | Signature | + + + + + + | VENTRICULAR | 67 | BPM | [facility] | | | RATE EKG | | | | | + + + + + + | ATRIAL RATE | 268 | BPM | [facility] | | + + + + + + | QRS | 80 | ms | [facility] | | | DURATION | | | | | + + + + + + | Q-T | 408 | ms | [facility] | | | INTERVAL | | | | | + + + + + + | Q-T | 431 | ms | [facility] | | | INTERVAL | | | | | | (CORRECTED) | | | | | + + + + + + | P WAVE AXIS | 97 | degrees | [facility] | | + + + + + + | QRS AXIS | 61 | degrees | [facility] | | + + + + + + | T AXIS | 56 | degrees | [facility] | | + + + + + + | INTERPRETAT | Atrial flutter with 4:1 | | [facility] | | | ION TEXT | AV | | | | | | conductionAnteroseptal | | | | | | infarct , age | | | | | | undeterminedAbnormal | | | | | | ECGNo previous ECGs | | | | | | availableConfirmed by | | | | | | ANTHONY MIGUEL MD ([id number]) | | | | | | on 07/11/2016 7:30:50 AM | | | | + + [...] | | | + +---------+ + + COLONOSCOPY (07/10/2016 10:10 AM PDT) + + | Specimen | + + | | + + + + -+ | Narrative | Performed At | + + -+ | | [facility] | | GastroenterologyPatient Name: Bekah Bartlett Date: 07/10/2016 | [facility] | | 10:10 AMMRN: [id number] #: [id number] of : | | | 9Admit Type: AmbulatoryAge: 65[facility] 01Gender: FemaleNote | | | Status: FinalizedAttending MD: John Temple MDProcedure: | | | ColonoscopyIndications: High risk colon cancer | | | surveillance: Personal history of colonic | | | polyps, Incidental - Change in bowel habits, | | | Incidental - DiarrheaProviders: John Temple MD, | | | Shauna Fowler RN, Toño Stoddard, | | | HARDWARE INSTALLER, Fredrick Gerber MD (Anesthesia Staff)Referring MD: | | | Avi Herman MD (Referring MD)Medicines: Sedation | | | Required Anesthesia Staff AssistanceComplications: No immediate | | | complications. Estimated blood loss: Minimal.Procedure: | | | Pre-Anesthesia Assessment: - Prior to the procedure, a History | | | and Physical was performed, and patient medications, allergies | | | and sensitivities were reviewed. The patient's tolerance of | | | previous anesthesia was reviewed. - Prior to the procedure, a | | | History and Physical was performed, and patient medications and | | | allergies were reviewed. The patient is competent. The risks | | | and benefits of the procedure and the sedation options and | | | risks were discussed with the patient. All questions were | | | answered and informed consent was obtained. Patient identification and | | | proposed procedure were verified. Mental Status Examination: | | | normal. 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 Prior Anticoagulants: The patient has taken | | | Xarelto (rivaroxaban), last dose was day of procedure. ASA | | | Grade Assessment: III - A patient with severe systemic disease. | | | After reviewing the risks and benefits, the patient was deemed | | | in satisfactory condition to undergo the procedure. The | | | anesthesia plan was to use monitored anesthesia care (MAC). | | | Immediately prior to administration of medications, the patient | | | was re-assessed for adequacy to receive sedatives. The heart | | | rate, respiratory rate, oxygen saturations, blood pressure, | | | adequacy of pulmonary ventilation, and response to care were | | | monitored throughout the procedure. The physical status of the | | | patient was re-assessed after the procedure. - After reviewing | | | the risks and benefits, the patient was deemed in satisfactory | | | condition to undergo the procedure. - Using IV propofol under | | | the supervision of an anesthesiologist was determined to be | | | medically necessary for this procedure based on age 65 or | | | older, severe comorbidity (greater than ASA Grade II), prolonged | | | procedure requiring deep sedation and patient's history of problems | | | with anesthesia. - Immediately prior to administration | | | of medications, the patient was re-assessed for adequacy to | | | receive sedatives. - The heart rate, respiratory rate, oxygen | | | saturations, blood pressure, adequacy of pulmonary ventilation, | | | and response to care were monitored throughout the procedure. | | | - The physical status of the patient was re-assessed after the | | | procedure. After I obtained informed consent, the scope was | | | passed under direct vision. Throughout the procedure, the | | | patient's blood pressure, pulse, and oxygen saturations were | | | monitored continuously. The Colonoscope was introduced through | | | the anus and advanced to the cecum, identified by the | | | appendiceal orifice, ileocecal valve and palpation. The colonoscopy | | | was technically difficult and complex due to significant | | | looping and a tortuous colon. Successful completion of the | | | procedure was aided by using manual pressure, straightening and | | | shortening the scope to obtain bowel loop reduction and using | | | scope torsion. The patient tolerated the procedure well. The | | | quality of the bowel preparation was excellent.Findings: The | | | perianal and digital rectal examinations were normal. Pertinent | | | negatives include normal sphincter tone and no palpable rectal | | | lesions. The sigmoid colon, descending colon and splenic flexure | | | were significantly tortuous. Biopsies for histology were taken | | | with a cold forceps from the ascending colon, descending colon | | | and sigmoid colon for evaluation of microscopic colitis. | | | Estimated blood loss was minimal. The exam was otherwise without | | | abnormality. The retroflexed view of the distal rectum and anal | | | verge was normal and showed no anal or rectal | | | abnormalities.Impression: - Tortuous colon. Biopsied. - | | | The examination was otherwise normal. - The distal rectum and | | | anal verge are normal on retroflexion view.Recommendation: - | | | Patient has a contact number available for emergencies. The signs and | | | symptoms of potential delayed complications were discussed with | | | the patient. Return to normal activities tomorrow. Written | | | discharge instructions were provided to the patient. - | | | Discharge patient to home (ambulatory). - Resume previous diet | | | today. - Continue present medications. - Await pathology | | | results. - Return to primary care physician as previously | | | scheduled. - Telephone GI clinic for pathology results in 1 | | | week. - Telephone GI clinic if symptomatic.John Temple | | | 07/10/2016 11:28:47 AMThis report has been signed | | | electronically.Number of Addenda: 0Note Initiated On: 07/10/2016 10:10 | | | AMScope Withdrawal Time: 0 hours 10 minutes 0 seconds Total Procedure | | | Duration: 0 hours 23 minutes 48 seconds Scope In: 10:43:53 AMScope | | | Out: 11:07:41 AM [facility], [address] | | | [place] [address] | | | - Await pathology results. | | | - Return to primary care physician as previously scheduled. | | | - Telephone GI clinic for pathology results in 1 week. | | | - Telephone GI clinic if symptomatic. | | |John Temple MD | | |07/10/2016 11:28:47 AM | | |This report has been signed electronically. | | |Number of Addenda: 0 | | |Note Initiated On: 07/10/2016 10:10 AM | | |Scope Withdrawal Time: 0 hours 10 minutes 0 seconds | | |Total Procedure Duration: 0 hours 23 minutes 48 seconds | | |Scope In: 10:43:53 AM | | |Scope Out: 11:07:41 AM | | | [facility], [address] [place], [place] | | | [address] | | + + -+ + +---------+ + + | Performing | Address | City/State/Zipcode | Phone Number | | Organization | | | | + +---------+ + + | [facility] | | | | + +---------+ + + Surgical Pathology Exam (07/10/2016 12:00 AM PDT) + + | Specimen | + + | | + + + + + | Narrative | Performed At | + + + | SPECIMEN(S): A DUODENAL BIOPSY SPECIMEN(S): B ESOPHAGEAL BIOPSY | [facility] | | SPECIMEN(S): C RIGHT COLON BIOPSY SPECIMEN(S): D LEFT COLON BIOPSY | [facility] | | SPECIMEN SOURCE: A. DUODENAL BIOPSY B. ESOPHAGEAL BIOPSY C. RIGHT | | | COLON BIOPSY D. LEFT COLON BIOPSY CLINICAL HISTORY: K21.9 | | | (gastroesophageal reflux disease without esophagitis), R19.7 | | | (diarrhea, unspecified), I48.91 (Unspecified atrial fibrillation), | | | Z86.010 (personal history of colonic polyps) R54 (Age-related | | | physical debility) MICROSCOPIC DESCRIPTION: Histologic sections | | | of all submitted blocks are examined by light microscopy. These | | | findings, together with the gross examination, support the pathologic | | | diagnosis. FINAL PATHOLOGIC DIAGNOSIS: A. Duodenal biopsy: - | | | Fragments of duodenal mucosa with preserved villous architecture. - | | | No evidence of significantly increased intraepithelial lymphocytes. | | | B. Esophageal biopsy: - Fragments of gastric mucosa with foci | | | of mild chronic inflammation and reactive epithelial changes. - No | | | squamous mucosa identified as sampled. - Negative for intestinal | | | metaplasia as sampled. C. Colon, right, biopsy: - Fragments of | | | colonic mucosa with no significant diagnostic abnormality. D. | | | Colon, left, biopsy: - Fragments of colonic mucosa with no | | | significant diagnostic abnormality. CLR:[facility]:C2NR GROSS | | | DESCRIPTION: Received in four parts. A. Received in formalin | | | labeled "Bekah Elder" and "duodenal biopsy" on the requisition are | | | seven pink-canela tissue fragments measuring from 0.2-0.5 cm, submitted, | | | all into (A1). B. Received in formalin labeled "Bekah Elder" and | | | "esophageal biopsy" on the requisition are six pink-canela tissue | | | fragment measuring from <0.1-0.55 cm, submitted, all in (B1). C. | | | Received in formalin labeled "Bekah Elder" and "right colon biopsy" | | | on the requisition are six poole-canela tissue fragments measuring from | | | 0.3-0.45 cm, submitted, all into (C1). D. Received in formalin | | | labeled "Bekah Elder" and "left colon biopsy" on the requisition are | | | eight pink-canela tissue fragments measuring from 0.1-0.3 cm, submitted, | | | all into (D1). ka:HEBERT:jennie PERFORMING LABORATORY: Tissue | | | processing and slide preparation were performed by [facility], | | | [address] [place] [address] 5, [place] [address] (Wig Maker: | | | Anthony Perez M.D. [facility]#: [id number]). Professional interpretation | | | was performed by [facility], [facility] | | | [place], [address] [place] [address], [place] [address] (Medical | | | Director: Eliezer Leo [facility]#: [id number]). | | | Diagnostician: Eliezer Leo MD Pathologist Electronically | | | Signed 07/13/2016 | | + + + + +---------+ + + | Performing | Address | City/State/Zipcode | Phone Number | | Organization | | | | + +---------+ + + | [facility] | | | | | [facility] | | | | + +---------+ + + documented in this encounter Visit Diagnoses Not on filedocumented in this encounter Administered Medications + +---------+ +------+-------+------+ | Medication Order | MAR | Action | Dose | Rate | Site | | | Action | Date | | | | + +---------+ +------+-------+------+ | ampicillin 2 g in sodium | New Bag | 07/11/19 | 2 g | 200 | | | chloride 0.9% 100 mL IVPB 2 g, | | 17 9:45 | | mL/hr | | | Intravenous, Administer over 30 | | AM PDT | | | | | Minutes, Prior to Incision, | | | | | | | Starting 07/10/16 at 0937, For | | | | | | | 1 dose, TO BE GIVEN PRIOR TO | | | | | | | PROCEDURE Activate system and mix | | | | | | | before use., Pre-op, | | | | | | | Indications: total knee | | | | | | | replacement | | | | | | + +---------+ +------+-------+------+ +---+---+ | | | +---+---+ + +---------+ +-------+-------+---+ | gentamicin 60 mg in sodium | New Bag | 07/11/19 | 60 mg | 103 | | | chloride 0.9% 50 mL IVPB 60 mg, | | 17 9:58 | | mL/hr | | | Intravenous, Administer over 30 | | AM PDT | | | | | Minutes, Prior to Incision, | | | | | | | Starting 07/10/16 at 0937, For | | | | | | | 1 dose, TO BE GIVEN PRIOR TO | | | | | | | PROCEDURE, Pre-op, Indications: | | | | | | | total knee replacement | | | | | | + +---------+ +-------+-------+---+ +---------+ +---+---+---+ | New Bag | 07/11/19 [...] | | | | | CONTINUOUS, Starting 07/10/16 | | AM PDT | | | | | at 1000, TKO., Pre-op | | | | | | + +---------+ +---+---+---+ +---------+ +---+ +---+ | New Bag | 07/11/19 | | 50 mL/hr | | | | 17 9:45 | | | | | | AM PDT | | | | +---------+ +---+ +---+ +---+---+ | | | +---+---+ documented in this encounter
--- OUTSIDE RECORDS SUMMARY | ~2019-12-18 | XMS | Encounter Summary ---
Demographics + + + | Address | [address] | | | [place] [address] | + + + | Home Phone | | + + + | Preferred Language | Unknown | + + + | Marital Status | | + + + | Sikhism Affiliation | [id number] | + + + | Race | White | + + + | Ethnic Group | Not or | + + + Author + + + | Author | [facility] | | | and [place] | + + + | Organization | [facility] | | | [...] [place] | | | | | [address] | | + + + + + Care Team Providers + +------+ + | Care Marine Steward Name | Role | Phone | + +------+ + | Avi Herman MD | PCP | | + +------+ + Reason for Visit + +--------+ + | Reason | Onset | Comments | | | Date | | + +--------+ + | Medication Refill | 05/19/ | | | | 2016 | | + +--------+ + Encounter Details +--------+--------+ + + + | Date | Type | Department | Care Team | Description | +--------+--------+ + + + | 05/19/ | Refill | [facility] | Pa Abad MD | Medication Refill | | 2016 | | OTOLARYNGOLOGY [address] | [address] [place] [address] | | | | | [facility] | [address] [place] | | | | | [place] | [address] | | | | | [address] | | | | | | [phone] | | | +--------+--------+ + + + [...] this encounter Miscellaneous Notes Telephone Encounter - Mamta Max, Loss Prevention Operations Manager - 05/19/2016 4:21 PM Janet t called because she out of refills for her nasal spray and she was not aware of it. She was seeing if she can get more refills. They are going out of town this week. So she was wonder ing if she can have refills this time then see him next time if that is fine with him. Told her that is not in the office right now but I will talk to him tomorrow and see wha t he wants to do. Then we will give her a call back on her cell. documented in this encounter Plan of Treatment +--------+---------+ + + + | Date | Type | Specialty | Care Team | Description | +--------+---------+ + + + | 01/07/ | Office | Neurology | Geo Worley MD [address] | | | 2020 | Visit | | [facility] | | | | | | [place], | | | | | | [place] [address] | | | | | | [phone] | | | | | | | | +--------+---------+ + + + documented as of this encounter Visit Diagnoses Not on filedocumented in this encounter
--- OUTSIDE RECORDS SUMMARY | ~2019-12-18 | XMS | Encounter Summary ---
Demographics + + + | Address | [address] | | | [place] [address] | + + + | Home Phone [...] [place] | | | | | [address] | | + + + + + Care Team Providers + +------+ + | Care Paper Ruler Name | Role | Phone | + +------+ + PCP | Unavailable | + +------+ + Encounter Details +--------+ + + + + | Date | Type | Department | Care Team | Description | +--------+ + + + + | 01/08/ | Hospital | [facility] | | | | 1999 | Encounter | MED CTR XRAY [address] | | | | | [address] | | | | | | [place] [address] | | | | | | [phone] | | | +--------+ + + + [...] | | | | | | [place] [address] | | | | | | [phone] | | | | | | | | +--------+---------+ + + + documented as of this encounter Visit Diagnoses Not on filedocumented in this encounter"
--- OUTSIDE RECORDS SUMMARY | ~2019-12-18 | XMS | Encounter Summary ---
Demographics + + + | Address | [address] | | | [place] [address] | + + + | Home Phone [...] [place] | | | | | [address] | | + + + + + Care Team Providers + +------+ + | Care Environmental Science Technician Name | Role | Phone | + +------+ + PCP | Unavailable | + +------+ + Encounter Details +--------+ + + + + | Date | Type | Department | Care Team | Description | +--------+ + + + + | 02/11/ | Hospital | [facility] | | | | 2004 | Encounter | MED CTR LABORATORY | | | | | | [address] | | | | | | [place] | | | | | | [address] | | | | | | [phone] | | | +--------+ + + + [...] | | | | | | [place] [address] | | | | | | [phone] | | | | | | | | +--------+---------+ + + + documented as of this encounter Visit Diagnoses Not on filedocumented in this encounter"
--- OUTSIDE RECORDS SUMMARY | ~2019-12-18 | XMS | Encounter Summary ---
Demographics + + + | Address | [address] | | | [place] [address] | + + + | Home Phone | | + + + | Preferred Language | Unknown | + + + | Marital Status | | + + + | Jain Affiliation | Unknown | + + + | Race | White | + + + | Ethnic Group | Not or | + + + Author + + + | Author | [facility] | + + + | Organization | [facility] | + + + | Address | Unknown | + + + | Phone | Unavailable | + + + Support + + +---------+ + | Name | Relationship | Address | Phone | + + +---------+ + | Alex Ramsay | AYAD | Unknown | | + + +---------+ + Care Team Providers + +------+ + | Care Urban Sociologist Name | Role | Phone | + +------+ + | Avi Herman MD | PCP | | + +------+ + Reason for Visit + + + | Reason | Comments | + + + | New patient | vulvodynia | | consultation | | + + + Consultation (Routine) +--------+--------+ + + + + | Status | Reason | Specialty | Diagnoses / | Referred By | Referred To | | | | | Procedures | Contact | Contact | +--------+--------+ + + + + | Closed | | Obstetrics & | Procedures | Maximino, | Elly | | | | Gynecology | DECK ENGINE OPERATOR CONSULT | Norma Strange, | MD Margaret | | | | | | [address] | [address] | | | | | | Kevin Nelson | [facility] | | | | | | [address] | | | | | | [place], | [place], [place] | | | | | | [place] [address] | [address] | | | | | | Phone: | Phone: | | | | | | [phone] | [phone] | | | | | | Fax: | Fax: | | | | | | [phone] | [phone] | +--------+--------+ + + + + Encounter Details +--------+---------+ + + + | Date | Type | Department | Care Team | Description | +--------+---------+ + + + | 07/23/ | [facility] | [facility] | [place], | Vulvodynia (Primary | | 2009 | Visit | [facility] | MD Margaret [address] | Dx); Vulvar | | | | [address] | [address] [facility] | vestibulitis; | | | | [address] | [place], [place] | Hypoestrogenism | | | | Pavilion, 7th floor | [address] | | | | | [place], [place] | [phone] | | | | | [address] | | | | | | [phone] | | | +--------+---------+ + + + [...] + + + + | Weight | 61.5 kg (135 lb 9.6 | 07/23/2009 2:15 PM | | | | oz) | PDT | | + + + + + | Height | 170.2 cm (5' 7") | 07/23/2009 2:15 PM | | | | | PDT | | + + + + + | Body Mass Index | 21.24 | 07/23/2009 2:15 PM | | | | | PDT | | + + + + + documented in this encounter Patient Instructions Patient Instructions Jena Chow - 07/23/2009 3:48 PM PDT1. Use the lidocaine nightly . First apply 2% gel with your finger to the vestibule. Then apply some of the 5% lidocain e to a cotton ball and place that at the opening of the vagina. Leave the cotton ball there overnight. Do this every night. If you want to try lidocaine with sexual activity, you may. Use it at the opening of the v agina for at least 10-20 minutes before you attempt vaginal intercourse. Additionally, you may use the 5% lidocaine ointment several times a day to help reduce your pain. You can do that additionally to the cotton ball treatment. 2. Consider Leigha Lisha for PT if you want to engage in that therapy 3. Continue your use of Vagifem 2x/week. Continue the use of topical premarin once a week at your vaginal opening (vestibule). 4. Consider a new lubricant, like mineral oil or bland oils (canola, mineral) Physical Therapy and Biofeedback in the Treatment of Vaginismus and Vulvar Pain Physical Therapy Physical therapy can be an integral part of treatment for vaginismus and vulvar pain due to problems with pelvic floor muscles. An evaluation with a physical therapist includes a stru ctural and musculoskeletal examination of your pelvis, sacrum, hips, and spine. It also incl udes a manual examination of the pelvic floor muscles. Biofeedback may also be a part of the assessment. The structural exam will include assessing the position and movement quality of the spine a nd pelvic joints to determine how they might be contributing to or perpetuating your pain by causing the pelvic floor muscles to spasm. The movements are all gentle and within your essie n tolerance. The musculoskeletal exam will also include palpation of the muscles of your becky k, hip and abdomen to identify trigger points that can refer pain to the pelvic floor. The manual exam of the pelvic floor will include observation and palpation of the outside o f your pelvic floor and an internal muscle exam. The internal exam is done gently and slowly with one finger to determine if the deeper muscles of the pelvic floor are part of the pain mechanism. The strength and endurance of your muscles will also be assessed by having you s queeze around the therapist's finger. Biofeedback Biofeedback is a method of improving awareness of bodily functions which can eventually tamara d to better control. These bodily functions can be temperature, blood pressure, heart rate, or muscle tone. In pelvic pain and vaginismus, it is helpful to evaluate the muscle tone of the pelvic floor. Spasm of the pelvic floor muscles can lead to pelvic pain. By using sensitive equipment and a gentle exam, an evaluation is completed. An internal vaginal sensor is placed along with an external surface probe. These sensors detect the amount of tone in the pelvic floor muscl es, and then convert this information to both visual and auditory signals on a computer scre en. This allows you to see and hear how the muscles work and rest. When biofeedback is combined with specific exercises and activities, you can learn to relax tense muscles and strengthen weak ones. Program in [facility] [place] Last updated August, [email or web address] documented in this encounter Progress Notes Jena Chow - 07/23/2009 2:27 PM PDT Margaret Bell MD - 07/21/2009 5:48 AM PDTFormatting of this n ote might be different from the original. VULVAR INITIAL EXAM Patient Self Reported Intake/Questionnaire: 1. My vulvar condition began when I was 57 years old. This was 1 years ago. 2. Based on a scale from 0 (no symptoms) to 10 (worst symptoms) rate your general level of vulvar discomfort VULVAR PAIN TODAY: 0 PAIN DURING/AFTER SEXUAL TOUCH: difficult but do able with lubrication 3. In addition to the above, which describes your problem? Itching? Itch without discharge yes Itching with discharge no Pain/burning/rawness? burning Constantly? Off and on Only with specific touch? no Chronic abnormal Vaginal discharge? no Skin splits? Spontaneous splits? no Splits just with intercourse? no Hx of STD? no Have you noted any skin changes? No, dose have a red ring that is irritated It feels better when a cream or salve is applied to my vulva yes I wear cotton underwear? yes I use mild soaps and detergents? no Dietary factors affect my pain? no I get bladder pain, urgency, frequency? no I cannot use tampons due to pain? N/A Speculums have always been painful? no My sister, mother, or daughter have my symptoms too? no I avoid intimate relationships due to pain? no 4. I became sexually active at age 16. Number of lifetime sexual partners Less than 5 Are you currently having sexual intercourse? Yes My relationship with my partner has become strained ? no I/we use artificial lubricants? Some I experience pain at the vaginal opening during sex? Some My sexual desire has diminished due to my symptoms? Yes My symptoms affect my ability to be orgasmic? No I have been sexually abused? No My pain began during my post period No I have undergone a biopsy of the vulva No Medication Therapies I have tried:Creams, Premarin cream, Vagifem It did help and Oral Med ications Gabapentin and Amitripytline was not tried due to the contraindication for Afib Other therapies I have tried: none I Approximately 10 minutes were spent reviewing and summarizing old records documenting the e valuation and therapeutic trials for this patient's vulvar condition. Bekah Elder is a 58 y.o. female T0 P0 SAB0 TAB0 L0 Mult0 Ect0 who presents today with vulvar pain. She is referred by Mike Stanton MD in [place]. 1. Vulvar pain: Began about 1 year ago after her daughter's on June 30, 2008; Though t at that time that she detected an odor but by the end of July 05 tried to have intercour se, and it was very painful. Saw DR. Stanton and was dx with vulvodynia-vestibulitis; Was given many behaviors to change i ncluding bathing, soaps, fragrances, detergents. Started on Premarin cream and Vagifem. Use the premarin 2x/day topically and VAgifem 2x/week. It made the pain bearable. The worse ch aracteristic of her pain is the intercourse. Does have some element of burning otherwise, a lbeit more minor compared to the intercourse pain. Ended up in afib on July 01 the day after her daughter's . Has been on afib meds since that time including a full ASA 325mg. (Just recently changed to baby ASA due to bleeding c omplication noted below). Now, has some element of burning every day. Uncomfortable with pants too tight. Rides a bik e. Hasn't worn pantyhose since she feels like it may ppt pain. About 3 weeks ago, found a lump in her vulva about 1-2cm big. Saw DR. Stanton and was dx with a sebaceous cyst. Excision was performed that ended in complications of Hematoma, pain, an emia and prolonged healing. She thinks her daily ASA for the afib had some part; Took about 3 weeks to heal on R side and just now starting to feeling it's nearly healed. Due to this incident, was changed from full ASA to a baby ASA. Now, she experiences pain as a burning sensation. Has tried topical E products along with o ral neurmodulators including gabapentin. FEels like she is better And not sure if it's the E or gabapentin. Is on 300mg TID, started that about 6 months. Does make her fuzzy a bit s o she does not use when she works 2x/week. Only ends up using 300mg BID on those days. Has tried to have intercourse since on gabapentin and it's better. For lubricant, RANGEL Sensi tive. NORMA STANTON [address] [place] [address] No past medical history on file. No past surgical history on file. No family history on file. Menopause: Age at last menses was 2002. No postmenopausal bleeding. Sexual Activity: Patient is sexually active with a male partner. She has not had a new se xual partner in the last year. Pap Smear History: Date of last pap smear was 2008 Negative history of abnormal pap smear s. . Sexually Transmitted Infections: No history. Sexual/Physical Abuse: No history of abuse. Obstetric History: Number of total pregnancies: 3. No current outpatient prescriptions on file. ALLERGIES: Review of patient's allergies indicates not on file. SOCIAL HISTORY AND HABITS: Patient is and lives with partner. 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 They live in [place] having moved there from [place] about 30 years ago. REVIEW OF SYSTEMS: Abdominal or pelvic pain: no Constipation / diarrhea / blood in stool: no Heartburn / trouble swallowing: no Urine leakage: no Vaginal / vulvar itching, irritation, discharge: yes see HPI Breast lumps / nipple discharge: no Chest pain: no Shortness of breath: no Pain with sexual intercourse: yes see HPI Visual / hearing problems: no Weight loss, fever, chills sweats: no Headaches- migraine or tension: no Numbness / tingling / weakness of extremities: no Joint / muscle pain: no Depression, anxiety, irritability, trouble sleeping: no Hot flashes / vaginal dryness: no Other concerns: yes see HPI GENERAL PHYSICAL EXAM: General: This is a well appearing, white female in no apparent distress. Skin: Warm, dry and no rashes or lesions. Lungs: Breathing comfortably Abdomen: Soft. Non-tender. No mass. No hepatosplenomegaly. Musculoskeletal: Normal. Extremities: No edema. No inguinal lymphadenopathy. Neurological: Normal VULVAR PHYSICAL EXAM Labis Majora: normal. Labia Minora: inner upper R labia minora is a 7mm nearly healed incision, small indentation , mild firmness and mild tenderness to touch, no ecchymoses Clitoral Rehman: normal and retractable. Clitoris: normal. Vestibule: Mild erythema only at 4---8 o'clock and Qtip test is positive 2+ with touch, sa me areas. Qtip test with 4% aqueous lidocaine reverse allodynia 75%. Urethra: normal. Hymen: small. Posterior Fourchette: normal. Perineum: normal. Perianal: normal. Vagina: well estrogenized and accomodates 2 fingers well. Levator Plate: hypertonic and mildly tender. 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 She has some elemen ts of MIXED vulvodynia since she has an element of daily burning that also disrupts her day to day living. I spent nearly 80 minutes with Bekah and Ryan today, nearly 100% spent in face to face coun seling. 1. Vestibulodynia with a MIXED component: Long discussion regarding the diagnosis of vesti bulodynia transpired with the patient. The current research supporting different treatment o ptions was also reviewed. This included topical 5% lidocaine ointment, oral neuromodulators , pelvic floor rehabilitation, YAG laser surgery and vestibulectomy. Plan: I would avoid surgery in [place] at this point after hearing her most recent complicat ion from a sebaceous cyst excision. She is very open to trying local treatment. Since she i s already on oral gabapentin, would leave her as is. WE did discuss that due to her MIXED c omponent, she may do better staying the oral gabapentin than titration off. After discussion of the topical products that are available, she has decided to try the 5% lidocaine protocol and vu 3% local for prn use. I advised also a lubricant change. Plan: Zolnouns' protocol and 2% lidocaine for local use 2. Myalgia: Discussion ocurred with the patient regarding the nature of vaginismus. I exp lained the compensatory mechanism learned from the levator muscles after chronic vulvovagina l pain. It was also reviewed that diligent pelvic floor rehabilitation with an experienced physical therapist and home exercise program often results in diminution of pain and increas ed sexual functioning. Plan: discussed, although less so due to time constraints. Bekah would like to try this on her own first. The instructions for dilator use was reviewed with them. In addition, Leigha Lisha is in the [place] area and may be a good resource for her. 3. Hypoestrogenism: Agree with the support of Vagifem 2x/week and topical E to the introti us. Re-instructed WHERE to put the topical E since it seems that Bekah was only getting it t o the inner labia minora and not in the vestibule Plan: Patient will return to clinic in 4-6 months . Vulvar education worksheets were distributed to the patient Vulvar Pain Disorders, Physical Therapy, Vaginismus, Vaginal Dilators and AVS. Letter was sent to referring doctor: yes. I spent 80 minutes with this patient, in which greater than 50% was spent counseling this p atient regarding the evaluation, management and therapeutic options for her vulvar condition . 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 documented in this encounter Miscellaneous Notes Scan - Unknown - 07/23/2009 12:00 AM PDT documented in this encounter Plan of Treatment Not on filedocumented as of this encounter Visit Diagnoses + + | Diagnosis | + + | Vulvodynia - Primary Vulvodynia, unspecified | + + | Vulvar vestibulitis | + + | Hypoestrogenism Other ovarian failure | + + documented in this encounter
--- OUTSIDE RECORDS SUMMARY | ~2019-12-18 | XMS | Encounter Summary ---
Demographics + + + | Address | [address] | | | [place] [address] | + + + | Home Phone | | + + + | Preferred Language | Unknown | + + + | Marital Status | | + + + | Orthodoxy Affiliation | 1073 | + + + | Race | White | + + + | Ethnic Group | Not or | + + + Author + + + | Author | [facility] | | | and [place] | + + + | Organization | [facility] | | | [...] [place] | | | | | [address] | | + + + + + Care Team Providers + +------+ + | Care Field Identification Specialist Name | Role | Phone | + +------+ + | Avi Herman MD | PCP | | + +------+ + Encounter Details +--------+ + + + + | Date | Type | Department | Care Team | Description | +--------+ + + + + | 07/10/ | Hospital | [facility] | John Temple MD | Gastroesophageal | | 2017 | Encounter | MED CTR [facility] INTRA OP | [address], [place] | reflux disease | | | | [address] | [address] [place], [place] | without esophagitis | | | | [place], [place] | [address] | (Primary Dx); | | | | [address] | | History of colon | | | | [phone] | | polyps; Change in | | | | | | bowel habit | +--------+ + + + + Social [...] + + + | Blood Pressure | 122/74 | 07/10/2016 11:45 AM | | | | | PDT | | + + + + + | Pulse | 122 | 07/10/2016 11:45 AM | | | | | PDT | | + + + + + | Temperature | 36.5 C (97.7 F) | 07/10/2016 11:16 AM | | | | | PDT | | + + + + + | Respiratory Rate | 13 | 07/10/2016 11:45 AM | | | | | PDT | | + + + + + | Oxygen Saturation | 96% | 07/10/2016 11:45 AM | | | | | PDT [...] | | 0 | | | | Hzggojx-Mmxkgpxou-Qz | mouth. | | | | | [...] is si gned per request of her channel development director 10 primary care teachers assistant she has remained on her Xarel to. [...] Prior to Admission medications Medication Sig Taking? Qawubdy-Mtdjiekxq-Fhgnehq D (CITRACAL SLOW RELEASE) 600-40-500 MG-MG-UNIT TB24 [...] 1. Available medical records have been reviewed. [facility] 04/27/2016 2. Medication list reviewed. [...] Electronically Signed by: John Temple MD 07/10/2016 [facility] Portions of this chart may have been created with [employer] voice recognition software. Occasi onal wrong-word or sound-alike substitutions may have occurred due to the inherent gamboa itations of voice recognition software. Please read the chart carefully and recognize, using context, where these substitutions have occurred documented in this enc ounter Miscellaneous Notes Op Note - Jhon Temple MD - 07/10/2016 11:11 AM PDTUpper [...] Endoscopy Patient: Bekah Elder : 1950 Acct: [id number] Exam Date: Sunday, July 10, 2016 Doctor: [...] If unable to reach your physician, call [facility] Emergency Department at Ext. [phone] Your doctor [...] Exams Patient: Bekah Elder : 1950 Acct: [id number] Exam Date: Sunday, July 10, 2016 Doctor: [...] If unable to reach your physician, call [facility] Emergency Department at Ext. 2500 Your doctor [...] | | 2019 | Visit | | [address] | | | | | | [address] [place] | | | | | | [place] [address] | | | | | | [phone] | | | | | | | [...] type | | | | | | ([facility]) (I48.91), | | | | | | [...] type | | | | | | ([facility]) (I48.91), | | | | | | [...] | | , Qual | | | [facility] | | [...] [address] | [place] | [phone] | | [facility] | | [address] | | | - LABORATORY | | [...] | Result called to and | | [facility] | | | | read back by Martha | | MEDICAL | | | | Janeth on 07/10/2016 | | CENTER - | | | | at 12:56 by Anton Aguirre. | | LABORATORY | | | | THIS IS A REPORTABLE | | | | | | DISEASEPlease report | | | | | | to [facility] | | | | | | Department at | | | | | | [phone] within 24 | | | | | [...] ST. | [address] | [place] | [phone] | | [facility] | | [address] | | | - LABORATORY | | [...] [address] | [place] | [phone] | | [facility] | | [address] | | | - LABORATORY | | [...] | | 2 | | | [facility] | | [...] + | [facility] | [address] | [place] | [phone] | | [facility] | | [address] | | | - LABORATORY | | [...] | | | | | | | [id number] | | | | | | Source [...] Performed: | | | | | | [facility] | | | | | | [facility], [address] | | | | | | [address] [place] [address] | | | | + + + [...] PAML | [address] | [place] [address] | [phone] | + + + + + Clostridium [...] + | [facility] | [address] | [place] | [phone] | | [facility] | | [address] | | | - LABORATORY | | [...] | | | Antigen, | | | [facility] | | | Stool | | | [...] + + | [facility] | [address] | [place] | [phone] | | [facility] | | [address] | | | - LABORATORY | | [...] | | | dium | | | [facility] | | | Antigen | | [...] + + | [facility] | [address] | [place] | [phone] | | [facility] | | [address] | | | - LABORATORY | | [...] + + | [facility] | [address] | [place] | [phone] | | [facility] | | [address] | | | - LABORATORY | | | | + + + + + EGD (07/10/2016 10:20 AM PDT) + + | Specimen | + + | | + + + + -+ | Narrative | Performed At | + + -+ | | [facility] | | GastroenterologyPatient Name: Bekah Bartlett Date: 07/10/2016 | [facility] | | 10:20 AMMRN: [id number] #: [id number] of : | | | 9Admit Type: AmbulatoryAge: 65Room: [facility] 01Gender: FemaleNote | | | Status: FinalizedAttending MD: John Temple [facility] | | | Upper GI endoscopyIndications: Esophageal reflux, | | | Follow-up of esophageal reflux, DiarrheaProviders: John | | | Elias Temple MD, Shauna Fowler RN, Toño Heard | | | EDWARDO Stoddard, Fredrick Gerber MD (Anesthesia | | | Staff)Referring MD: [...] the anesthesiologist and | | | the certified surgical technician in the endoscopy suite. Mental Status [...] | | 10:32:15 AMScope Out: 10:41:08 AM [facility] | | | Center, [address] [place] [address] | | | - Resume previous diet [...] |Scope Out: 10:41:08 AM | | | [facility], [address] [place] [address] | | | [address] | | + + -+ + +---------+ [...] | | | | ANTHONY MIGUEL MD ([id number]) | | | | | | on [...] 07/10/2016 | [facility] | | 10:10 AMMRN: [id number] #: [id number] of : | | | 9Admit Type: AmbulatoryAge: 65Room: [facility] 01Gender: FemaleNote | | | Status: FinalizedAttending MD: John Temple MDProcedure: | | | ColonoscopyIndications: High risk colon cancer | | | surveillance: Personal history of colonic | | | polyps, Incidental - Change in bowel habits, | | | Incidental - DiarrheaProviders: John Temple MD, | | | Shauna Fowler RN, Toño Stoddard, | | | [facility], Fredrick Gerber MD (Anesthesia Staff)Referring MD: | [...] AMScope | | | Out: 11:07:41 AM [facility], [address] | | | [place] [address] | | | - Await pathology results. [...] |Scope Out: 11:07:41 AM | | | [facility], [address], [place] | | | [address] | | + + -+ + +---------+ [...] no | | | significant diagnostic abnormality. CLR:[facility]:C2NR GROSS | | | DESCRIPTION: Received in [...] processing and slide preparation were performed by [employer], | | | [address] [place] [address] 5, [place] [address] (Color Room Attendant: | | | Anthony Perez M.D. [facility]#: [id number]). Professional interpretation | | | was performed by [employer], [facility] | | | [place], [address] [place] [address], [place] [address] (Medical | | | Director: Eliezer Leo [facility]#: [id number]). | | | Diagnostician: Eliezer Leo MD [...] + | Diagnosis | + + | Gastroesophageal reflux disease without esophagitis - Primary Esophageal reflux | + + | History of colon polyps Personal history of colonic polyps | + + | Change in bowel habit | + + documented in this encounter Administered Medications + +---------+ [...]
--- OUTSIDE RECORDS SUMMARY | ~2019-12-18 | XMS | Encounter Summary ---
Demographics + + + | Address | [address] | | | [place] [address] | + + + | Home Phone | | + + + | Preferred Language | Unknown | + + + | Marital Status | | + + + | Orthodox Affiliation | 1073 | + + + | Race | White | + + + | Ethnic Group | Not or | + + + Author + + + | Author | [facility] | | | and [place] | + + + | Organization | [facility] | | | and [...] [place] | | | | | [address] | | + + + + + Care Team Providers + +------+ + | Care Physician Office Secretary Name | Role | Phone | + +------+ + | Avi Herman MD | PCP | | + +------+ + Reason for Visit + +--------+ + | Reason | Onset | Comments | | | Date | | + +--------+ + | Imaging Only | 05/27/ | patient wants to know if she should be NPO for her | | | 2017 | Enterography tomorrow | + +--------+ + Encounter Details +--------+ + + + + | Date | Type | Department | Care Team | Description | +--------+ + + + + | 05/27/ | Telephone | [facility] | John Temple MD | Imaging Only | | 2017 | | GASTROENTEROLOGY | [address], [place] | (patient wants to | | | | [address] [place] | [address] [place], [place] | know if she should | | | | [address] [place], [place] | [address] | be NPO for her | | | | [address] | | Enterography | | | | [phone] | | tomorrow) | +--------+ + + + + Social [...] this encounter Miscellaneous Notes Telephone Encounter - Manju Corrigan CMA - 05/27/2017 3:30 PM PSTPatient calls in, state s she has an imaging appointment tomorrow at 0800 and should she be NPO after midnight, info rmed her yes. document ed in this encounter Plan of Treatment +--------+---------+ + + + | Date | Type | Specialty | Care Team | Description | +--------+---------+ + + + | 01/07/ | Office | Neurology | Geo Worley MD [address] | | | 2020 | Visit | [facility] | | | | | | [place] | | | | | | [place] [address] | | | | | | [phone] | | | | | | | | +--------+---------+ + + + documented as of this encounter Visit Diagnoses Not on filedocumented in this encounter
--- OUTSIDE RECORDS SUMMARY | ~2019-12-18 | XMS | Encounter Summary ---
Demographics + + + | Address | [address] | | | [place] [address] | + + + | Home Phone [...] [place] | | | | | [address] | | + + + + + Care Team Providers + +------+ + | Care Bank Representative Name | Role | Phone | + +------+ + | Avi Herman MD | PCP | | + +------+ + Encounter Details +--------+ + + + + | Date | Type | Department | Care Team | Description | +--------+ + + + + | 03/30/ | Episode | [facility] [place] | MarthaFidelina H, | | | 2016 | Changes | GASTROENTEROLOGY | RN | | | | | [address] [place] | | | | | | [address] [place] | | | | | | [address] | | | | | | [phone] | | | +--------+ + + + [...] | | | | | | [place] [address] | | | | | | [phone] | | | | | | | | +--------+---------+ + + + documented as of this encounter Visit Diagnoses Not on filedocumented in this encounter
--- OUTSIDE RECORDS SUMMARY | ~2019-12-18 | XMS | Encounter Summary ---
Demographics + + + | Address | [address] | | | [place] [address] | + + + | Home Phone | | + + + | Preferred Language | Unknown | + + + | Marital Status | | + + + | Bahai Affiliation | 1073 | + + + [...] [place] | | | | | [address] | | + + + + + Care Team Providers + +------+ + | Care Shading Painter Name | Role | Phone | + +------+ + | Avi Herman MD | PCP | | + +------+ + Reason for Visit +--------+--------+ + | Reason | Onset | Comments | | | Date | | +--------+--------+ + | Other | 04/02/ | minor procedure | | | 2014 | | +--------+--------+ + Encounter Details +--------+ + + + + | Date | Type | Department | Care Team | Description | +--------+ + + + + | 04/02/ | Telephone | [facility] [place] | Pa Abad MD | Other (minor | | 2015 | | OTOLARYNGOLOGY [address] | [address] [place] | procedure ) | | | | [address] [facility] [address] | [address] [place] | | | | | [place] | [address] | | | | | [address] | | | | | | [phone] | | | +--------+ + + + [...] this encounter Miscellaneous Notes Telephone Encounter - Kavya Victoria - 04/02/2014 8:06 AM PSTPatient called to cancel mi nor procedure Apr 02 due to illness. Will call back to reschedule. documented in this encounter Plan of Treatment [...] | | | | | | [place] [address] | | | | | | [phone] | | | | | | | | +--------+---------+ + + + documented as of this encounter Visit Diagnoses Not on filedocumented in this encounter"
--- OUTSIDE RECORDS SUMMARY | ~2019-12-18 | XMS | Encounter Summary ---
Demographics + + + | Address | [address] | | | [place] [address] | + + + | Home Phone [...] [place] | | | | | [address] | | + + + + + Care Team Providers + +------+ + | Care Firestopper Technician Name | Role | Phone | + +------+ + | Kenneth Herman MD | PCP | | + +------+ + Reason for Visit Evaluate & Treat (Emergency) +--------+ + + + + + | Status | Reason | Specialty | Diagnoses / | Referred By | Referred To | | | | | Procedures | Contact | Contact | +--------+ + + + + + | Closed | Specialty | Otolaryngolog | Diagnoses | Hebert, | Pa Hebert | | | Services | y | [...] | | | cavity, and | [place] [address] | [address] Phone: | | | | | pharynx | Phone: | [phone] | | | | | Procedures | [phone] | Fax: | | | | | [place] EXCIS | Fax: | [phone] | | | | | MOUTH | [phone] | | | | | | MUCOSA/SUB,S | | | | | | | IMPL REPAIR | | | +--------+ + + + + + Encounter Details +--------+---------+ + + + | Date | Type | Department | Care Team | Description | +--------+---------+ + + + | 05/23/ | [facility] | [facility] | Pa Hebert MD | Benign neoplasm of | | 2015 | Visit | OTOLARYNGOLOGY [address] | [address] [place] | other and | | | [address] [place] [address] | [address] [place] | unspecified parts of | | | | [place], [place] | [address] | mouth (Primary Dx) | | | | [address] | | | | | | [phone] | | | +--------+---------+ + + + [...] documented as of this encounter Progress Notes Pa Hebert MD - 05/23/2014 11:56 AM PSTSee dictation #[id number] signed by Ned Hebert MD at 05/23/2014 12:54 PM PSTdocumented in this encounter Procedure Notes Pa Hebert MD - 05/23/2014 12:54 PM PST [facility] OTOLARYNGOLOGY [facility] [address] OFFICE PROCEDURE PA HEBERT MD Patient: BEKAH ELDER Admitting: MR #: [id number] LOC: PT TYPE: Adm Date: 05/23/2014 : 1950 DATE OF PROCEDURE: 05/23/2014. PREOPERATIVE DIAGNOSIS: Two buccal mucosal growths of uncertain behavior of the right buc ana paula mucosa. POSTOPERATIVE DIAGNOSIS: Two buccal mucosal growths of uncertain behavior of the right bu ccal mucosa. OPERATION PERFORMED: Excision of 2 buccal growths with a simple repair. SURGEON: Pa Hebert MD. FINDINGS: The patient had an area over a centimeter in size that was in the mid buccal mu cosal area on the right hand side and then a smaller one that was about a 0.5 cm that was j ust inside on the buccal mucosa away from the commissure of her mouth on the right-hand manuel e. PROCEDURE: The area initially was treated with some topical Xylocaine. Once this was margarito joseph, the base of these lesions was injected with 1-percent Xylocaine with epinephrine. The deep lesion was then able to be excised with a #15 blade and excised in an elliptical fash ion. Once excised, the wound was closed with interrupted 5-0 Vicryl suture. The lesion m ore anterior was then excised with a 15 blade through the base and into the buccal mucosal area and the entire lesion was removed. The wound was then closed with an interrupted 5-0 Vicryl suture. Once no further bleeding was present, the patient was advised to be re-seen again in 1 week's time. Her specimens were sent for pathology examination. ESTIMATED BLOOD LOSS: Less than 5 mL. PA HEBERT MD Dictated by PA HEBERT MD 05/23/2014 12:54:42 Transcribed on 05/23/2014 13:08:34 by [employer] job# [id number] Confirmation #: [id number] cc: KENNETH HERMAN MD [facility] umented in this encounter Plan of Treatment +--------+---------+ + + + | Date | Type | Specialty | Care Team | Description | +--------+---------+ + + + | 01/07/ | Office | Neurology | Geo Worley MD [address] | | | 2020 | Visit | | [address] | | | | | | [address] [place], | | | | | | [place] [address] | | | | | | [phone] | | | | | | | | +--------+---------+ + + + documented as of this encounter Procedures + +--------+ + + + | Procedure Name | Priori | Date/Time | Associated Diagnosis | Comments | | | ty | | | | + +--------+ + + + | PATHOLOGY - EXTERNAL | | 05/23/2014 | | | | SCAN | | 12:00 AM | | | | | | PST | | | + +--------+ + + + | PATHOLOGY - EXTERNAL | | 05/23/2014 | | | | SCAN | | 12:00 AM | | | | | | PST | | | + +--------+ + + + | SURGICAL PATHOLOGY | Routin | 05/23/2014 | | Results for this | | EXAM | e | 12:00 AM | | procedure are in the | | | | PST | | results section. | + +--------+ + + + | SURGICAL PATHOLOGY | Routin | 05/23/2014 | | Results for this | | EXAM | e | 12:00 AM | | procedure are in the | | | | PST | | results section. | + +--------+ + + + documented in this encounter Results Surgical Pathology Exam (05/23/2014 12:00 AM PST) + + | Specimen | + + | | + + + + + | Narrative | Performed At | + + + | THIS IS AN AMENDED REPORT SPECIMEN(S): A RIGHT CHEEK | [facility] | | ANTERIOR SPECIMEN(S): B RIGHT CHEEK POSTERIOR SPECIMEN SOURCE: | [facility] | | A. RIGHT CHEEK ANTERIOR B. RIGHT CHEEK POSTERIOR REASON FOR | | | AMENDMENT: This amendment is performed to remove Pa Hebert MD at the | | | [facility] location in the header. This | | | report is not otherwise altered. 05/25/14 CLINICAL HISTORY: No | | | preop or clinical information is given on requisition. FINAL | | | PATHOLOGIC DIAGNOSIS: A. 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 - Negative for malignancy. | | | B. Right cheek posterior, excision: - Benign, mildly inflamed | | | fibroma with overlying parakeratosis. - Negative for malignancy. | | | [facility]:C2NR MICROSCOPIC EXAMINATION: Histologic sections of | | | all submitted blocks are examined by light microscopy. These findings, | | | together with the gross examination, support the pathologic | | | diagnosis. GROSS DESCRIPTION: The specimen is received in two | | | parts. A. The specimen is labeled and designated "Bekah Elder | | | Ana, right anterior buccal mucosal cheek" and designated "right | | | cheek anterior buccal mucosa" on the requisition. Received in formalin | | | is one cream colored excision of skin, it measures 0.5 x 0.6 cm, | | | thickness is 0.3 cm. The specimen is inked in blue and serially | | | sectioned into (A1). B. The specimen is labeled and designated | | | "Bekah Elder, designated "right cheek, posterior buccal | | | mucosal". Received in formalin is one cream colored excision of what | | | appears to look like skin, it measures 0.8 x 0.1 cm, thickness is 0.5 | | | cm. The specimen is inked in blue and serially sectioned into (B1). | | | yt:HENRY:jennie PERFORMING LABORATORY: Tissue processing and slide | | | preparation were performed by [employer], [facility], | | | [address], [place] [address] (Probation Worker: Anthony Perez | | | [place]; CLIA#: [id number]). Professional interpretation was performed | | | by [employer], [facility] [address], [place], [place] | | | [address] (Probation Worker: Anthony Perez M.D.; CLIA#: [id number]). | | | Diagnostician: Lisa Shearer MD Pathologist Diagnostician: | | | Stephen Alas MD Pathologist Electronically Signed 05/25/2014 | | | | | + + + + +---------+ + + | Performing | Address | City/State/Zipcode | Phone Number | | Organization | | | | + +---------+ + + | [facility] | | | | | [facility] | | | | + +---------+ + + Surgical Pathology Exam (05/23/2014 12:00 AM PST) + + | Specimen | + + | | + + + + + | Narrative | Performed At | + + + | SPECIMEN(S): A RIGHT CHEEK ANTERIOR SPECIMEN(S): B RIGHT CHEEK | [facility] | | POSTERIOR SPECIMEN SOURCE: A. RIGHT CHEEK ANTERIOR B. RIGHT | [facility] | | CHEEK POSTERIOR CLINICAL HISTORY: No preop or clinical | | | information is given on requisition. FINAL PATHOLOGIC DIAGNOSIS: | | | A. Right cheek anterior, excision: - Benign fibroma with overlying | | | parakeratosis. - Negative for malignancy. B. Right cheek | | | posterior, excision: - Benign, mildly inflamed fibroma with | | | overlying parakeratosis. - Negative for malignancy. | | | [facility]:C2NR MICROSCOPIC EXAMINATION: Histologic sections of all | | | submitted blocks are examined by light microscopy. These findings, | | | together with the gross examination, support the pathologic diagnosis. | | | GROSS DESCRIPTION: The specimen is received in two parts. A. | | | The specimen is labeled and designated "Bekah Elder, | | | right anterior buccal mucosal cheek" and designated "right cheek | | | anterior buccal mucosa" on the requisition. Received in formalin is | | | one cream colored excision of skin, it measures 0.5 x 0.6 cm, | | | thickness is 0.3 cm. The specimen is inked in blue and serially | | | sectioned into (A1). B. The specimen is labeled and designated | | | "Bekah Elder, designated "right cheek, posterior buccal | | | mucosal". Received in formalin is one cream colored excision of what | | | appears to look like skin, it measures 0.8 x 0.1 cm, thickness is 0.5 | | | cm. The specimen is inked in blue and serially sectioned into (B1). | | | yt:[facility] PERFORMING LABORATORY: Tissue processing and slide | | | preparation were performed by [employer], [address] [place] [address], | | | [facility] [place] [address] (Probation Worker: Anthony Perez | | | [place]; CLIA#: [id number]). Professional interpretation was performed | | | by [employer], [address] [place] [address], [address], [place], [place] | | | [address] (Probation Worker: Anthony Perez M.D.; CLIA#: [id number]). 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
--- OUTSIDE RECORDS SUMMARY | ~2019-12-18 | XMS | Encounter Summary ---
Demographics + + + | Address | [address] | | | [place] [address] | + + + | Home Phone | | + + + | Preferred Language | Unknown | + + + | Marital Status | | + + + | Bahai Affiliation | 1073 | + + + | Race | White | + + + | Ethnic Group | Not or | + + + Author + + + | Author | [facility] | | | and [place] | + + + | Organization | [facility] | | [...] [place] | | | | | [address] | | + + + + + Care Team Providers + +------+ + | Care Tractor Mechanic Helper Name | Role | Phone | + +------+ + | Avi Herman MD | PCP | | + +------+ + Encounter Details +--------+ + + + + | Date | Type | Department | Care Team | Description | +--------+ + + + + | 07/01/ | Imaging | [facility] | Provider, | | | 2018 | Exam | [facility] | [facility] | | | | | IMAGING [address] | [address] | | | | | [address] | [place] [address] | | | | | [place] [address] | | | | | | [phone] | | | +--------+ + + + [...] | | 2020 | Visit | | [facility] | | | | | | [address] [place], | | | | | | [place] [address] | | | | | | [phone] | | | | | | | | +--------+---------+ + + + documented as of this encounter Procedures + +--------+ + + + | Procedure Name | Priori | Date/Time | Associated Diagnosis | Comments | | | ty | | | | + +--------+ + + + | XR KNEE LEFT 1 - 2 | Routin | 11/05/2015 | | Results for this | | VW | e | 10:30 AM | | procedure are in the | | | | PDT | | results section. | + +--------+ + + + documented in this encounter Results BETH Coles 1 - 2 Vw (11/05/2015 10:30 AM PDT) + + | Specimen | + + | | + + + + + | Narrative | Performed At | + + + | External films for comparison only - no result from [facility]. | [facility] | + + + + +---------+ + + | Performing | Address | City/State/Zipcode | Phone Number | | Organization | | | | + +---------+ + + | [facility] | | | | + +---------+ + + documented in this encounter Visit Diagnoses Not on filedocumented in this encounter
--- OUTSIDE RECORDS SUMMARY | ~2019-12-18 | XMS | Encounter Summary ---
Demographics + + + | Address | [address] | | | [place] [address] | + + + | Home Phone [...] + + + | Author | [facility] | | | and [place] | + + + | Organization | [facility] | | [...] [place] | | | | | [address] | | + + + + + Care Team Providers + +------+ + | Care Solar Field Service Technician Name | Role | Phone | + +------+ + | Avi Herman MD | PCP | | + +------+ + Encounter Details +--------+ + + + + | Date | Type | Department | Care Team | Description | +--------+ + + + + | 10/15/ | Orders Only | [facility] [place] | John Temple MD | Diarrhea, | | 2017 | | GASTROENTEROLOGY | [address], [place] | unspecified type | | | | [address] | [address] [place], [place] | (Primary Dx) | | | | [address] [place], [place] | [address] | | | | | [address] | | | | | | [phone] | | | +--------+ + + + [...] documented as of this encounter Progress Notes Darlene Barrow RN - 10/15/2016 4:[address] Temple if diarrhea continues he re commends stool studies be done. Orders mailed to patient so she can have done in [place]. documented in thi s encounter Plan of Treatment +--------+---------+ + + + | Date | Type | Specialty | Care Team | Description | +--------+---------+ + + + | 01/07/ | Office | Neurology | Geo Worley MD [address] | | | 2019 | Visit | | [address] | | | | | | [place], | | | | | | [place] [address] | | | | | | [phone] | | | | | | | | +--------+---------+ + + + + + +--------+ + + | Name | Type | Priori | Associated Diagnoses | Order Schedule | | | | ty | | | + + +--------+ + + | Culture, Stool | Microbiolog | Routin | Diarrhea, | 1 Occurrences | | | y | e | unspecified type | starting 10/15/2016 | | | | | | until 10/16/2017 | + + +--------+ + + | Giardia Ag, EIA, | Microbiolog | Routin | Diarrhea, | 1 Occurrences | | Stool | y | e | unspecified type | starting 10/15/2016 | | | | | | until 10/16/2017 | + + +--------+ + + | Cryptosporidium Ag | Microbiolog | Routin | Diarrhea, | 1 Occurrences | | | y | e | unspecified type | starting 10/15/2016 | | | | | | until 10/16/2017 | + + +--------+ + + | Clostridium | Microbiolog | Routin | Diarrhea, | 1 Occurrences | | difficile Toxin | y | e | unspecified type | starting 10/15/2016 | | | | | | until 10/16/2017 | + + +--------+ + + | Clostridium | Microbiolog | Routin | Diarrhea, | Expected: 10/15/2016 | | difficile A and B | y | e | unspecified type | (Approximate), | | EIA | | | | Expires: 02/15/2017 | + + +--------+ + + documented as of this encounter Visit Diagnoses + + | Diagnosis | + + | Diarrhea, unspecified type - Primary | + + documented in this encounter
--- OUTSIDE RECORDS SUMMARY | ~2019-12-18 | XMS | Encounter Summary ---
Demographics + + + | Address | [address] | | | [place] [address] | + + + | Home Phone [...] [place] | | | | | [address] | | + + + + + Care Team Providers + +------+ + | Care Shrimp Header Name | Role | Phone | + [...] | | | [address] | [place] [address] | | | | | [place] [address] | | | | | | [phone] | | | +--------+ + + + [...] | | 2020 | Visit | | [facility] | | | | | | [address] [place], | | | | | | [place] [address] | | | | | | [phone] | | | | | | | | +--------+---------+ + + + documented as of this encounter Procedures + +--------+ + + + | Procedure Name | Priori | Date/Time | Associated Diagnosis | Comments | | | ty | | | | + +--------+ + + + | XR KNEE LEFT 3 VW | Routin | 03/07/2015 | | Results for this | | | e | 10:15 AM | | procedure are in the | | | | PST | | results section. | + +--------+ + + + documented in this encounter Results BETH Coles 3 Vw (03/07/2015 10:15 AM PST) + + | Specimen | [...]
--- OUTSIDE RECORDS SUMMARY | ~2019-12-18 | XMS | Encounter Summary ---
Demographics + + + | Address | [address] | | | [place] [address] | + + + | Home Phone [...] + + + | Author | [facility] | | | and [place] | + + + | Organization | [facility] | | [...] [place] | | | | | [address] | | + + + + + Care Team Providers + +------+ + | Care Ore Bridge Operator Name | Role | Phone | + +------+ + | Avi Herman MD | PCP | | + +------+ + Reason for Visit + +--------+ + | Reason | Onset | Comments | | | Date | | + +--------+ + | Medication Refill | 12/05/ | | | | 2014 | | + +--------+ + Encounter Details +--------+--------+ + + + | Date | Type | Department | Care Team | Description | +--------+--------+ + + + | 12/05/ | Refill | [facility] [place] | Pa Abad MD | Medication Refill | | 2014 | | OTOLARYNGOLOGY [address] | [address] [place] [address] | | | | | [facility] [address] | [address] [place] [address] | | | | | [place] | [address] | | | | | [address] | | | | | | [phone] | | | +--------+--------+ + + + [...] | | | | | | [place] [address] | | | | | | [phone] | | | | | | | | +--------+---------+ + + + documented as of this encounter Visit Diagnoses Not on filedocumented in this encounter"
--- OUTSIDE RECORDS SUMMARY | ~2019-12-18 | XMS | Clinical Summary ---
Demographics + + + | Address | [address] | | | [place] [address] | + + + | Home Phone | | + + + | Preferred Language | Unknown | + + + | Marital Status | | + + + | Buddhist Affiliation | Unknown | + + + | Race | White | + + + | Ethnic Group | Not or | + + + Author + + + | Author | [facility] | + + + | Organization | [facility] | + + + | Address | Unknown | + + + | Phone | Unavailable | + + + Support + + +---------+ + | Name | Relationship | Address | Phone | + + +---------+ + | Alex Ramsay | ECON | Unknown | | + + +---------+ + Care Team Providers + +------+ + | Care Toys And Games Hand Finisher Name | Role | Phone | + +------+ + | Avi Herman MD | PCP | | + +------+ + Source Comments [facility] is fully live on both [facility] and [facility] Allergies + + + + + + | Active Allergy | Reactions | Severity | Noted | Comments | | | | | Date | | + + + + + + | Moexipril Hcl | Bronchospasm | | 07/24/19 | | | | | | 10 | | + + + + + + Medications + + + +---------+------+------+-------+ | Medication | Sig | Dispensed | Refills | Star | End | Statu | | | | | | t | Date | s | | | | | | Date | | | + + + +---------+------+------+-------+ | flecainide 100 mg | Take 100 mg by mouth | | 0 | | | Activ | | Oral Tablet | two times daily. | | | | | e | + + + +---------+------+------+-------+ | SERTRALINE HCL | Take 50 mg by mouth. | | 0 | | | Activ | | (ZOLOFT OR) | 125 mg daily | | | | | e | + + + +---------+------+------+-------+ | gabapentin 300 mg | Take 300 mg by mouth | | 0 | | | Activ | | Oral Capsule | three times daily. | | | | | e | + + + +---------+------+------+-------+ | MOMETASONE FUROATE | Instill in nose as | | 0 | 04/2 | | Activ | | (NASONEX NA) | needed. | | | 7/20 | | e | | | | | | 10 | | | + + + +---------+------+------+-------+ | TETRAHYDROZOLINE | Instill in eye. | | 0 | | | Activ | | HCL (VISINE OP) | | | | | | e | + + + +---------+------+------+-------+ | CALCIUM CITRATE | Take by mouth three | | 0 | 04/2 | | Activ | | (DESIRAE-CITRATE OR) | times daily. | | | 7/20 | | e | | | 630/300mg tid | | | 10 | | | + + + +---------+------+------+-------+ | BABY ASPIRIN OR | Take 81 mg by mouth | | 0 | 04/2 | | Activ | | | once daily. | | | 7/20 | | e | | | | | | 10 | | | + + + +---------+------+------+-------+ | lidocaine 2 % | by Topical route. | 30 mL | 2 | 04/2 | | Activ | | Mucous Membrane Gel | apply to vestibule | | | 10/15 | | e | | | as needed | | | 10 | | | + + + +---------+------+------+-------+ | ERGOCALCIFEROL | Take 1,000 Int'l | | 0 | 04/2 | | Activ | | (VITAMIN D OR) | Units/day by mouth | | | 10/15 | | e | | | once daily. | | | 10 | | | + + + +---------+------+------+-------+ | fluconazole 150 mg | Take 150 mg by mouth | | 0 | 04/2 | | Activ | | Oral Tablet | every seven days. | | | 12/16 | | e | | | | | | 10 | | | + + + +---------+------+------+-------+ Active Problems Not on file Family History + + +------+ + | Medical History | Relation | Name | Comments | + + +------+ + | Arthritis | Father | | | + + +------+ + | Heart Disease | Father | | | + + +------+ + | Cancer | Mother | | breast | + + +------+ + + +------+ + + | Relation | Name | Status | Comments | + +------+ + + | Daughter | | | 2009 | + +------+ + + | Father | | | | + +------+ + + | Mother | | | | + +------+ + [...] + + + + Plan of Treatment + + +-------+ + | Health Maintenance | Due Date | Last | Comments | | | | Done | | + + +-------+ + | Mammogram | | | | | | 9 | | | + + +-------+ + | Pneumococcal | | | | | vaccination (1 of 1 | 4 | | | | - PPSV23) | | | | + + +-------+ + | Influenza (Flu) | | | | | vaccination (#1) | 0 | | | + + +-------+ + Results Not on filefrom Last 3 Months Insurance + +--------+ +--------+-------+---------+------+ | Payer | Benefi | Subscriber | Effect | Phone | Address | Type | | | t Plan | ID | [place] | | | | | | / | | Dates | | | | | | Group | | | | | | + +--------+ +--------+-------+---------+------+ | [employer] | FIRST | [id number] | Effect | | | PPO | | | CHOICE | | [place] | | | | | | | | for | | | | | | HEALTH | | all | | | | | | | | dates | | | | + +--------+ +--------+-------+---------+------+ + +--------+ +--------+ + + | Guarantor Name | Accoun | Relation to | Date | Phone | Billing Address | | | t Type | Patient | of | | | | | | | | | | + +--------+ +--------+ + + | Bekah Elder | Person | Self | [birth year] | [address] | | | al/Fam | | 1951 | [phone] | [place] [address] | | | demetra | | | 5 (Home) | | + +--------+ +--------+ + +
--- OUTSIDE RECORDS SUMMARY | ~2019-12-18 | XMS | Encounter Summary ---
Demographics + + + | Address | [address] | | | [place] [address] | + + + | Home Phone | | + + + | Preferred Language | Unknown | + + + | Marital Status | | + + + | Congregation Affiliation | 1073 | + + + [...] [place] | | | | | [address] | | + + + + + Care Team Providers + +------+ + | Care Retread Builder Name | Role | Phone | + +------+ + | Hector Nielsen MD | PCP | | + +------+ + Reason for Visit + + + | Reason | Comments | + + + | Follow-up | Memory loss | + + + Evaluate & Treat [...] | | | | anxiety | [place] [address] | [place] [address] | | | | | disorders | Phone: | Phone: | | | | | | [phone] | [phone] | | | | | | Fax: | Fax: | | | | | | [phone] | [phone] | + +--------+ + + + + Encounter Details +--------+---------+ + + + | Date | Type | Department | Care Team | Description | +--------+---------+ + + + | 09/26/ | Office | [facility] | Geo Worley MD [address] | 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 | Visit | NEUROLOGY [address] | [address] | Alzheimer's disease | | | | [place] [address] | [address] [place], | without behavioral | | | | [place], [place] | [place] [address] | disturbance (HCC) | | | | [address] | [phone] | (Primary Dx) | | | | [phone] | | | +--------+---------+ + + + [...] + documented in this encounter Progress Notes Geo Worley MD - 09/27/2019 10:10 AM PDTFormatting of this note might be different from the o riginal. Referring Physician: Hector Nielsen MD PCP: Hector Nielsen MD Date of Encounter: 09/27/2019 SUBJECTIVE Bekah Elder is a pleasant 69 y.o. female with history of depression, A. fib stat us post ablation, who presents to the clinic today for evaluation of memory loss. Patient w as accompanied by her . Interval History Patient reports stable symptoms since last visit. She just completed WACE today. WACE today 09/2019 80/100, MMSE 24/30, VLOM ratio 5.57 Labs showed normal TSH, 11/11/18 Recap History Patient reports memory loss for 1 year [...] education: Associate degree Previous work history: Was [employer], retired 8 years ago ALLERGIES Allergies Allergen Reactions Moexipril Hydrochloride Shortness Of Breath AKA Univasc Metoclopramide Other (See Comments) depression Oxycodone Other (See Comments) "makes her crazy" Propafenone Other (See Comments) Did not work for her Afib, she wants this on her allergy list MEDICATIONS Current Outpatient Medications: Lwxnpdk-Bgsvwzjcv-Euvtqqz D (CITRACAL SLOW RELEASE) 600-40-500 MG-MG-UNIT TB24, Take 1 ,500 mg by mouth., Disp: , Rfl: cholecalciferol (VITAMIN D-3) 400 units TABS, Take 400 Units by mouth Daily., Disp: , Rfl: citalopram (CELEXA) 20 mg tablet, Take 35 mg by mouth Daily ., Disp: , Rfl: ipratropium (ATROVENT) 0.06% nasal spray, INSTILL TWO SPRAYS IN EACH NOSTRIL UP TO FOU R TIMES DAILY NEEDED, Disp: 15 mL, Rfl: 5 Polyethylene Glycol 400 (BLINK TEARS OP), Apply to eye Daily as needed., Disp: , Rfl: Family history, social history and past medical history were reviewed and updated as necess markie. REVIEW OF SYSTEMS In addition to HPI, a comprehensive ROS also revealed: Negative except noted in HPI OBJECTIVE General Exam Vitals: 09/27/19 1005 BP: 145/77 Pulse: 50 PainSc: 0 - No pain WDWN, NAD Heart is regular Awake, alert. Cooperative and appropriate during the encounter. Speech is clear, fluent and coherent. DATA Results for orders placed or performed in visit on 07/27/19 ECG 12 lead Result Value Ref Range VENTRICULAR RATE EKG 51 BPM ATRIAL RATE 51 BPM P-R INTERVAL 194 ms QRS DURATION 88 ms Q-T INTERVAL 444 ms Q-T INTERVAL (CORRECTED) 409 ms P WAVE AXIS 87 degrees QRS AXIS 100 degrees T AXIS 61 degrees INTERPRETATION TEXT Sinus bradycardia Septal infarct , age undetermined Abnormal ECG No previous ECGs available Confirmed by GRANT VEGA MD ([id number]) on 08/01/2019 7:54:30 AM ASSESSMENT & PLAN 69 y.o. female female who presents with more than 1 year history of short-term memory loss. Recent head CT was unremarkable. WACE in mild demential range, VLOM ratio suggest Alzheime r type dementia. Reviewed WACE results. We might be dealing with early Alzheimer dementia. Patient is intere sted to try donepezil for symptoms measures. - start donepezil 5 mg daily. Potential side effects were reviewed with the patient in det ail. Realistic expectation reviewed. - Discussed cognitive health issues. Advised to stay mentally and physically active. Regula r physical exercises was encouraged, as patient can tolerate. Follow with primary doctor to continue optimize management of depression. - discussed cognitive safety issues. Family to help monitor medication and driving safety p eriodically - Follow up in 4-6 months or sooner as needed Greater than 50% of this 25 minute encounter was spent on face to face counseling and formu lation of management plan. Thank you for allowing me to take care of this patient. Please do not hesitate to contact m erik if you have any questions. Cc: Hector Nielsen MD This note was prepared using [employer] voice recognition technology. There may be so und-alike errors even though every effort has been made to ensure accuracy. documented in this encounter Plan of Treatment +--------+---------+ + + + | Date | Type | Specialty | Care Team | Description | +--------+---------+ + + + | 01/07/ | Office | Neurology | Geo Worley MD [address] | | 2019 | Visit | | [facility] | | | | | | [address] [facility], | | | | | | [place] [address] | | | | | | [phone] | | | | | | | | +--------+---------+ + + + documented as of this encounter Visit Diagnoses + + | Diagnosis | + + | Late onset Alzheimer's disease without behavioral disturbance (HCC) - Primary | + + documented in this encounter
--- OUTSIDE RECORDS SUMMARY | ~2019-12-18 | XMS | Encounter Summary ---
Demographics + + + | Address | [address] | | | [place] [address] | + + + | Home Phone | | + + + | Preferred Language | Unknown | + + + | Marital Status | | + + + | Jain Affiliation | 1073 | + + + [...] [place] | | | | | [address] | | + + + + + Care Team Providers + +------+ + | Care Report Writer Name | Role | Phone | + +------+ + PCP | Unavailable | + +------+ + Encounter Details +--------+ + + + + | Date | Type | Department | Care Team | Description | +--------+ + + + + | 12/22/ | Hospital | [facility] | | | | 2001 | Encounter | MED CTR XRAY [address] | | | | | | [address] | | | | | | [place] [address] | | | | | | [phone] | | | +--------+ + + + [...] | | | | | | [place] [address] | | | | | | [phone] | | | | | | | | +--------+---------+ + + + documented as of this encounter Visit Diagnoses Not on filedocumented in this encounter"
--- OUTSIDE RECORDS SUMMARY | ~2019-12-18 | XMS | Encounter Summary ---
Demographics + + + | Address | [address] | | | [place] [address] | + + + | Home Phone | | + + + | Preferred Language | Unknown | + + + | Marital Status | | + + + | Yazidism Affiliation | [id number] | + + + | Race | White | + + + | Ethnic Group | Not or | + + + Author + + + | Author | [facility] | | | and [place] | + + + | Organization | [facility] | | | [...] [place] | | | | | [id number] | | + + + + + Care Team Providers + +------+ + | Care Sales And Service Officer Name | Role | Phone | + +------+ + | Avi Herman MD | PCP | | + +------+ + Reason for Visit + + + | Reason | Comments | + + + | Colon Cancer | | | Screening | | + + + Encounter Details +--------+---------+ + + + | Date | Type | Department | Care Team | Description | +--------+---------+ + + + | 05/20/ | Office | [facility] | John Temple MD | Personal history of | | 2016 | Visit | GASTROENTEROLOGY | [address], [place] | colonic polyps | | | | [address] [place] | [address] [place], [place] | (Primary Dx); | | | | [address] [place], [place] | [address] | Gastroesophageal | | | | [address] | | reflux disease, | | | | [phone] | | esophagitis presence | | | | | | not specified; | | | | | | Diarrhea, | | | | | | unspecified type; | | | | | | Atrial fibrillation, | | | | | | unspecified type | | | | | | ([facility]) | +--------+---------+ + + + Social History [...] + + + | Blood Pressure | 114/66 | 05/20/2016 2:14 PM | | | | | PST | | + + + + + | Pulse | 63 | 05/20/2016 2:14 PM | | | | | PST | | + + + + + | Temperature | - | - | | + + + + + | Respiratory Rate | 16 | 05/20/2016 2:14 PM | | | | | PST | | + + + + + | Oxygen Saturation | 99% | 05/20/2016 2:14 PM | | | | | PST | | + + + + + | Inhaled Oxygen | - | - | | | Concentration | | | | + + + + + | Weight | 61.9 kg (136 lb 8 | 05/20/2016 2:14 PM | | | | oz) | PST | | + + + + + | Height | 170.2 cm (5' 7") | 05/20/2016 2:14 PM | | | | | PST | | + + + + + | Body Mass Index | 21.38 | 05/20/2016 2:14 PM | | | | | PST | | + + + + + documented in this encounter Progress Notes John Temple MD - 05/20/2016 2:47 PM PST Subjective: Patient ID: Bekah Elder is a 65 y.o. female. HPI Comments: The patient is seen for multiple gastrointestinal tract concerns. Outside re cords are reviewed The patient has had a change in bowel pattern over the past year. She reports that she has looser stools up to 3-4 times a day 2-3 times a week. She has urgency and has had occasion al episodes of fecal soiling. She denies nocturnal symptoms. She denies blood or mucus in the stool. She's had no abdominal pain. Foods that used to precipitate her symptomatology include salads or roughage. She has avoided foods and has continued to have a change in her bowel pattern. She does not consume caffeinated beverages nonabsorbable sugars or simple s ugars. She has had no change in her medications except for the addition of Xarelto which alatorre s been for several years. The patient does have a history of adenomatous polyps removed fro m the hepatic flexure and 2010. The patient previously had constipation which was successfu lly treated with probiotics The patient also has symptoms of reflux. Typical retrosternal burning usually associated w ith spicy foods or eating late at night. She is on no prescription medications for the same but does take Gaviscon on a regular basis. She denies dysphagia or odontophagia denies sym ptoms of aspiration supra-esophageal manifestations of reflux such as voice change aspiratio n etc. upper endoscopy in 2006 was positive for gastroparesis. Biopsies of the esophagus we re positive for reflux negative for Page's metaplasia; patient previously was on Protonix but has not been on the same for approximately a year. Review of the chart shows total knee replacement September 2015. Her orthopedic surgeon told th e patient that she should take prophylactic antibiotics. Atrial fibrillation on chronic ant icoagulation Xarelto past history of ablation; anxiety depression. The patient reports an a ny stress precipitates an onset of atrial fibrillation and is concerned that the prep and/or procedure may precipitate the same. She is in discussion with her primary care physician a nd emotional support teacher with respect to possibly preventing atrial fibrillation with propafenone for 3 days prior to the colonoscopy . Filed Vitals: 05/20/16 1414 BP: 114/66 Pulse: 63 Resp: 16 PainSc: 0 - No pain [...] 03/08/2014 Esophageal reflux 03/08/2014 Arthritis Esophageal reflux Past Surgical History Procedure Laterality Date Atrial ablation surgery 2010 Dr. Bob Knee arthroscopy Left 2011 Knee joint replacement Left 08/08/2014 Dr. 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 Respiratory: Positive for cough. Cardiovascular: Positive for palpitations. Gastrointestinal: Positive for diarrhea. Musculoskeletal: Positive for arthralgias. Hematological: Bruises/bleeds easily. Psychiatric/Behavioral: Positive for dysphoric mood. The patient is nervous/anxious. All other systems reviewed and are negative. Objective: Physical Exam Constitutional: She is oriented [...] Effort normal and breath sounds normal. No respiratory distress. She has n o wheezes. She has no rales. She exhibits [...] normal. Nursing note and vitals reviewed. 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 Benefits and risks of the procedure were expl ained to the patient she concurs. We'll proceed with holding her Xarelto for 3 days prior t o the procedure and antibiotic prophylaxis has been ordered. The patient's cardiac status history of anxiety etc. propofol sedation is desirable Portions of this report were transcribed using voice recognition software. Every effort wa s made to ensure accuracy; however, inadvertent computerized radar scientist errors may be pre sent. documented in this enc ounter Plan of Treatment +--------+---------+ + + + | Date | Type | Specialty | Care Team | Description | +--------+---------+ + + + | 01/07/ | Office | Neurology | Geo Worley MD [address] | | | 2019 | Visit | | [email or web address] | | | | | | [address], | | | | | | [place] [address] | | | | | | [phone] | | | | | | | | +--------+---------+ + + + documented as of this encounter Procedures + +--------+ + + + | Procedure Name | Priori | Date/Time | Associated Diagnosis | Comments | | | ty | | | | + +--------+ + + + | LABS - EXTERNAL SCAN | | 07/02/2016 | | Results for this | | | | 12:00 AM | | procedure are in the | | | | PDT | | results section. | + +--------+ + + + | LABS - EXTERNAL SCAN | | 06/29/2016 | | Results for this | | | | 12:00 AM | | procedure are in the | | | | PDT | | results section. | + +--------+ + + + documented in this encounter Results LABS - EXTERNAL SCAN (07/02/2016 12:00 AM PDT) + + + | Narrative | Performed At | + + + | Ordered by an | | | unspecified provider. | | + + + LABS - EXTERNAL SCAN (06/29/2016 12:00 AM PDT) + + + | Narrative | Performed At | + + + | Ordered by an | | | unspecified provider. | | + + + documented in this encounter Visit Diagnoses + + | Diagnosis | + + | Personal history of colonic polyps - Primary | + + | Gastroesophageal reflux disease, esophagitis presence not specified | + + | Diarrhea, unspecified type | + + | Atrial fibrillation, unspecified type (HCC) | + + documented in this encounter
--- OUTSIDE RECORDS SUMMARY | ~2019-12-18 | XMS | Encounter Summary ---
Demographics + + + | Address | [address] | | | [place] [address] | + + + | Home Phone | | + + + | Preferred Language | Unknown | + + + | Marital Status | | + + + | Church Affiliation | 1073 | + + + | Race | White | + + + | Ethnic Group | Not or | + + + Author + + + | Author | [facility] | | | and [place] | + + + | Organization | [facility] | | | [...] [place] | | | | | [address] | | + + + + + Care Team Providers + +------+ + | Care Medical Tech Name | Role | Phone | [...] Pa Abad, | Medication Refill | | 2016 | | PHYSIATRY [address] | MD [address] | | | | | [address] | [place], [place] | | | | | [place], [place] | [address] | | | | | [address] | | | | | | [phone] | | | +--------+--------+ + + + [...] | | | | | | [place] [address] | | | | | | [phone] | | | | | | | | +--------+---------+ + + + documented as of this encounter Visit Diagnoses Not on filedocumented in this encounter
--- NOTE | 2019-12-18 23:45 | EKG ---
[facility] [address] [facility] [place], [place] [address] Signed Sinus bradycardia Anteroseptal infarct , age undetermined Abnormal ECG No previous ECGs available Confirmed by JULIETH ENRIQUE MD ([id number]) on 12/18/2019 11:44:50 PM Electronically Signed By: JULIETH ENRIQUE MD 12/18/19 2345 PATIENT NAME: GANGA DEUTSCH Electrocardiogram DATE OF : 46 PHYSICIAN: JULIETH ENRIQUE MD REPORT #: [id number] REPORT IS CONFIDENTIAL AND NOT TO BE RELEASED WITHOUT AUTHORIZATION
== END ==
LOC: ED 16:58
DX: I49.9 Cardiac arrhythmia, unspecified (principal); I48.91 Unspecified atrial fibrillation; Z87.891 Personal history of nicotine dependence; Z88.8 Allergy status to other drugs, medicaments and biological substances; Z79.899 Other long term (current) drug therapy
CPT/HCPCS: 71045; 80048; 83735; 84484; 85025; 93005; 93010; 99285-25

== ENCOUNTER 2022-04-07 12:29 | Inpatient (IN) | payer MEDICARE, OTHER ==
[~2022-04-07] VITALS: Ht 167.6 cm; Wt 63.3 kg
[2022-04-07] MEDS ORDERED: CITALOPRAM HBR40 MG PO (13:11)
[2022-04-07] MEDS ORDERED: IPRATROPIUM BRO15 ML NAS (13:11)
[2022-04-07] MEDS ORDERED: DONEPEZIL HCL10 MG PO (13:11)
[2022-04-07] MEDS ORDERED: SILDENAFIL20 MG PO (13:12)
[2022-04-07] MEDS ORDERED: AMLODIPINE BES2.5 MG PO (13:12)
--- NOTE | 2022-04-07 19:05 | NUR ---
PATIENT RECEIVED FROM ER AT 1854 VIA STRETCHER WITH SPOUSE AT BEDSIDE. PATIENT ALERT, ORIENTED TO SELF AND SITUATION, BUT STATES SHE HAS 'SHORT TERM MEMORY LOSS'. PATIENT IS PLEASANT WITH NO COMPLAINTS OR NEEDS AT THIS TIME. DILTIAZEM IV INFUSING AT 5ML/HR. IV SITE WNL, NO REDNESS OR HEMATOMA NOTED. AFLUTTER ON THE MONITOR HR 60-70'S. PATIENT AND VISITOR GIVEN MEAL BOXES AND WATER.
--- NOTE | 2022-04-07 19:59 | NUR ---
PT RESTING IN BED ALERT AND ORIENTED EATING WENDYS FROSTY. HR 65 IN A FLUTTER. PT DENIES CHEST PAIN. BP 123/76. IVF INFUSING THROUGH R FOREARM SITE, DILT DRIP REMAINS AT 5MG/HR THROUGH LEFT FOREARM SITE. BOTH WNL.
--- NOTE | 2022-04-07 20:29 | NUR ---
DILT DRIP TITRATED TO 2.5MG PER PROTOCOL/EMAR. PT REMAINS WITHOUT PAIN AND ALERT IN [employer] VISITING WITH FAMILY FRIEND AND AT BEDSIDE.
--- NOTE | 2022-04-07 21:30 | NUR ---
ADMISSION ASSEMENT COMPLETE. PT REMAINS IN AFLUTTER WITH A RATE CONTROLLED IN THE 60'S EVEN WITH MOVEMENT IN BED. DILT DRIP OFF AT THIS TIME. OTHERWISE ASSESMENT NEGATIVE FOR ABNORMAL FINDINGS. HUSABND REMAINS AT BEDSIDE, PLANS TO STAY THE NIGHT, LINENS PROVIDED. HYGENIE ITEMS ALSO PROVIDED PER REQUEST - DENIES OTHER NEEDS, CALL LIGHT AT REACH.
--- NOTE | 2022-04-07 23:30 | NUR ---
RN ROUNDING ON PT - RESTING ON SIDE WITH IN CHAIR NEXT TO BED. HR 65, REMAINS AFLUTTER. CALL LIGHT AT SIDE.
--- NOTE | 2022-04-08 00:09 | NUR ---
RN IN ROOM TO ANSWER CALL LIGHT - PT USES BSC WITH STANDBY ASSIST HELPING WITH LINES. URINE CONCENTRATED, ENCOURAGED ORAL FLUIDS. HR TOLERATED AMBULATION WITHOUT INCREASE IN HR OUTSIDE OF PARAMETERS. ASSESSMENT OTHERWISE UNCHANGED. REMAINS AT BEDSIDE. CALL LIGHT IN REACH.
--- NOTE | 2022-04-08 02:11 | NUR ---
RN ROUNDING ON PT - RESTING IN BED AWAKE, DENIES NEEDS. CALL LIGHT IN REACH, ASLEEP AT BEDSIDE.
--- NOTE | 2022-04-08 04:13 | NUR ---
PT RESTING IN BED ASLEEP, RR EVEN AND UNLABORED. HR IN 60'S, AFLUTTER. CALL LIGHT AND AT SIDE.
--- NOTE | 2022-04-08 05:15 | NUR ---
RN IN ROOM TO ASSESS PT WITH AM LAB STAFF - PT ALERT AND ORIENTED, FORGETFUL OF SOME DETAILS THROUGH THE NIGHT. DENIES CHEST PAIN OR PRESSURE. REMAINS IN CONSISTANT AFLUTTER WITH 3/1 RATIO, REGULAR IN RATE. PT DENIES NEEDS AT THIS TIME. CALL LIGHT AT SIDE.
--- NOTE | 2022-04-08 07:23 | EKG ---
[facility] [address] [place] [address] Signed Sinus tachycardia Rightward axis Possible Anterior infarct (cited on or before 18-DEC-2019) ST \T\ T wave abnormality, consider lateral ischemia Abnormal ECG When compared with ECG of 18-DEC-2019 17:10, Vent. rate has increased BY [address] now depressed in Lateral leads T wave inversion now evident in Inferior leads T wave inversion no longer evident in Anterior leads Confirmed by JULIETH ENRIQUE MD ([id number]) on 04/08/2022 7:23:45 AM Electronically Signed By: JULIEHT ENRIQUE MD 04/08/22722 PATIENT NAME: GANGA DEUTSCH Electrocardiogram DATE OF : 46 PHYSICIAN: JULIETH ENRIQUE MD REPORT #: [id number] REPORT IS CONFIDENTIAL AND NOT TO BE RELEASED WITHOUT AUTHORIZATION
--- NOTE | 2022-04-08 07:30 | EKG ---
[facility] [address] [facility] [place] [address] Signed Atrial flutter with variable AV block Rightward axis Possible Anterior infarct (cited on or before 18-DEC-2019) Abnormal ECG When compared with ECG of 07-APR-2022 12:39, (Unconfirmed) Atrial flutter has replaced Sinus rhythm Vent. rate has decreased BY [address] no longer elevated in Inferior leads T wave inversion less evident in Inferior leads T wave inversion no longer evident in Lateral leads Confirmed by JULIETH ENRIQUE MD ([id number]) on 04/08/2022 7:30:14 AM Electronically Signed By: JULIETH ENRIQUE MD 04/08/22 0730 PATIENT NAME: GANGA DEUTSCH Electrocardiogram DATE OF : 46 PHYSICIAN: JULIETH ENRIQUE MD REPORT #: [id number] REPORT IS CONFIDENTIAL AND NOT TO BE RELEASED WITHOUT AUTHORIZATION
--- NOTE | 2022-04-08 08:15 | NUR ---
PATIENT AWAKE, SITTING IN BED, DRINKING DECAF COFFEE, WITH SPOUSE AT BEDSIDE. PATIENT REPORTS SLEEPING WELL AND HAS NO COMPLAINTS OR NEEDS EXPRESSED THIS MORNING. PATIENT IS ORIENTED TO SELF, TIME, LOCATION AND SITUATION THIS MORNING. RESPIRATIONS EQUAL AND UNLABORED, CLEAR LUNG SOUNDS THROUGHOUT. PATIENT ON ROOM AIR. ABDOMEN SOFT, NONTENDER, NONDISTENDED WITH ACTIVE BOWEL SOUNDS. NO EDEMA TO EXTREMITIES NOTED. SKIN WARM,DRY, AND PINK. IV INFUSING WITHOUT DIFFICULTY. BILATERAL IV'S FLUSH EASILY, NO HEMATOMAS NOTED, DRESSINGS CDI. SPOUSE REMAINS AT BEDSIDE. PATIENT AND SPOUSE GIVEN MEAL TRAY/SANDWICH AND COFFEE.
--- NOTE | 2022-04-08 10:30 | NUR ---
RESTING IN BED. UPON ASKING PATIENT HOW SHE WAS FEELING, PATIENT STATES SHE HAS BEEN FEELING DIZZY SINCE SHE WALKED, ALSO C/O SLIGHT NAUSEA. HR MID-90'S. BP-115/83. DR. ENRIQUE AWARE. ORDERS RECIEVED TO START CARDIZEM 120 MG PO. WILL GIVE WHEN VARIFIED.
--- NOTE | 2022-04-08 10:41 | NUR ---
PT AMBULATED TO BATHROOM AND IN HALLWAY. PT STEADY ON FEET. RESPIRATIONS EVEN AND UNLABORED. PT DENIES DIZZINESS OR SHORTNESS OF BREATH. HEART RATE UP TO 110 WITH AMBULATION. BACK INTO THE 90S AT REST. CALL LIGHT WITHIN REACH. WILL CONTINUE TO MONITOR.
--- NOTE | 2022-04-08 11:20 | NUR ---
CARDIZEM 120 MG PO GIVEN FOLLOWED BY ZOFRAN 4 MG IV FOR NAUSEA. UP TO BR, WHEN UP TO BR HR TO 130. CONTINUES TO C/O OF NAUSEA. WHILE IN BR, HAD UNMEAUSRED VOID AND SMALL LOOSE STOOL. BACK TO BED W/O INCIDENT.
--- NOTE | 2022-04-08 11:40 | NUR ---
STATES SHE DOES FEEL A LITTLE BETTER. BACK UP TO BR TO EXPELL LOOSE STOOL AND URINE. HR 130 WHEN UP, UPON RETURN TO BED HR MID 90'S.
--- NOTE | 2022-04-08 12:10 | NUR ---
PT AMBULATED TO THE BATHROOM. HEART RATE UP TO 130 WITH ACITIVITY. NOW BACK IN BED. HEART RATE IN THE 90S. PT STATES SHE IS STILL MILDY NAUSEATED. REMAINS AT BEDSIDE. CALL LIGHT WITHIN REACH. WILL CONTINUE TO MONITOR.
--- NOTE | 2022-04-08 12:53 | NUR ---
I was able to visit with Bekah and her today. Bekah is awake, alert, and oriented. She is happy with her care here in the hospital. She plans to return to home on discharge with her . They both report that they live very independantly and can meet all their home care needs. They do not have food insecurity per their statements and there are no dificulties with being able to pay for housing, food, medications, utilities, etc. They are happy with the care here at the hospital and deny questions or additional care needs at this time.
--- NOTE | 2022-04-08 15:42 | NUR ---
LAST ASSISTANCE TO BATHROOM, PATIENT'S HR UP TO 130; PATIENT RECOVERED WELL.
--- NOTE | 2022-04-08 17:30 | NUR ---
sitting up in bed to TAKE DINNER.
--- NOTE | 2022-04-08 19:35 | NUR ---
REPORT TO NEXT SHIFT. PATIENT IS RESTING IN BED. DENEIS PAIN OF SHORTNESS OF BREATH.
--- NOTE | 2022-04-08 20:00 | NUR ---
Bedside report received from outgoing nurse, REBECCA [place]. Initial assessment performed with no critical interventions necessary. All vital signs stable with no complaints or indications of respiratory distress, fever or pain. Patient assisted to toilet with sustained normal heart rate and no issues ambulating. at bedside. Will continue to monitor.
--- NOTE | 2022-04-08 22:00 | NUR ---
All vital signs stable with complaints of headache resolved. Patient assisted to toilet with no issues ambulating. Will continue to monitor.
--- NOTE | 2022-04-09 | NUR ---
Repeat assessment performed with no acute changes since previous assessment. All vital signs stable with no indications of respiratory distress, fever or pain. Patient assisted to toilet. Patient's remains at bedside.
--- NOTE | 2022-04-09 02:04 | NUR ---
Patient sleeping with at bedside. All vital signs stable. Will continue to monitor.
--- NOTE | 2022-04-09 04:00 | NUR ---
Repeat assessment performed with no acute changes since previous assessment. All vital signs stable with no indications or complaints of respiratory distress, fever or pain. Patient resting with at bedside. Will continue to monitor.
--- NOTE | 2022-04-09 06:00 | NUR ---
Patient resting comfortably with at bedside. All vital signs stable with no indications of respiratory distress, fever or pain.
--- NOTE | 2022-04-09 07:30 | NUR ---
PATIENT SHIFT REPORT RECIVED FROM SUBMARINE WORKER RN. PATIENT RESTING IN BED WITH HER AT THE BEDSIDE. PATIENT HAD A KELLY OVER ALL AND PER REPORT HER HR HAS BEEN WELL CONTROLLED WITH ACTIVITY AND REST. WILL CONTINUE TO CLOSELY MONITOR.
--- NOTE | 2022-04-09 08:25 | NUR ---
THIS RN IN TO GIVE PATIENT HER MORNING MEDICATIONS. PATIENT SPOKE WITH MD ENRIQUE. PATIENT WILL BE DISCHARGED WITH CARDIAC FOLLOW UP. WILL CALL CASE MANAGEMENT AND HAVE THEM ASSIST WITH THIS PORTION OF REFERAL. PATIENT DENIES ANY OTHER NEEDS AT THIS TIME.
[2022-04-09] MEDS ORDERED: DILTIAZEM 24HR120 MG PO (08:27)
[2022-04-09] MEDS ORDERED: ELIQUIS5 MG PO (08:47)
--- NOTE | 2022-04-09 09:48 | NUR ---
MED REC COMPLETE
--- NOTE | 2022-04-09 10:10 | NUR ---
THIS RN OVER TO UPDATE MD IVA PRINCE TPATIENT FAILED THE "ROAD TEST" PATIENT WAS UP TO THE BATHROOM WITH A HR HIGH OF 135. PATIENT JUST MOVING TO GET OUT OF BED WITH A HR OF 120'S. PATIENT COMPLAINING OF DIZZINESS WITH AMBULATION. NEW ORDER FOR 30MG PO DILTIAZEMN TO BE GIVEN IN ADDITION TO HER LONG ACTING CARDIZEM SHE HAD THIS AM. WILL RE-EVALUATE IN APPROX 1.5 HRS FOR EFFECTIVENESS. PATIENT REMAINS IN ATRIAL FLUTTER.
--- NOTE | 2022-04-09 10:45 | NUR ---
INTO SPEAK WITH PATIENT AND . PATIENT REQUESTING TO ESTABLISHED WITH DR. SANCHES.PATIENT HAS SEEN [facility] IN THE PAST. PATIENT AND ARE OKAY TRAVELING TO [place] FOR APPOINTMENT IF NEEDED. LEFT MESSAGE FOR JAVA APPLICATION ENGINEER AT [facility].
--- NOTE | 2022-04-09 13:37 | NUR ---
THIS RN IN TO SPEAK WITH FAMILY ABOUT PLAN OF CARE. PATIENT IS FEELING UNSETTELED WITH DISCHARGING WITH JUST CHANGING HEART MEDICATIONS AROUND. MD ENRIQUE WAS UPDATED AND AGREES WITH PATIENT AND WILL KEEP PATIENT OVER NIGHT TO MONITOR. PATIENT AND FAMILY UPDATED AND PATIENT WILL TRANSFER TO THE MEDICAL UNIT. WILL CONITNUE TO CLOSELY MONITOR.
--- NOTE | 2022-04-09 13:58 | NUR ---
PATIENT TRANSFERED TO THE MEDICAL UNIT ROOM 113 WITH REBECCA BA. REVIEWED PLAN OF CARE WITH RN WITH RN, PATIENT, AND HER . PATIENT ON TELEMETRY #6. NO OTHER QUESTIONS AT THIS TIME. WILL CONTINUE TO CLOSELY MONITOR.
--- NOTE | 2022-04-09 14:09 | NUR ---
REPORT FROM Tevin ALEMAN RN. PATIENT MOVED FROM ROOM 127 IN CCU TO ROOM 113 IN MED-SURG WITH TELEMETRY IN PLACE, IN BED WITH THIS NURSE AND Tevin ALEMAN RN. ORIENTED TO ROOM. SPOUSE AT BEDSIDE. ASSESSMENT COMPLETED. VITALS OBTAINED.
--- NOTE | 2022-04-09 14:33 | NUR ---
VISITING WITH PT AND KVNG. RECOMMENDED TO SEE RETAIL SALES TEAMMATE, REBECCA BRUNER IN TO DISCUSS POC NEXT. HAD PRAYER FOR WISDOM, WILL FOLLOW
--- NOTE | 2022-04-09 19:05 | NUR ---
REPORT RECEIVED FROM REBECCA RANDLE. PT SITTING UP IN BED WITH MEAL. PT REQUESTING SOME COFFEE. TRACE [place] ASKED TO GET PT DECAF COFFEE. PT REPORTS NO OTHER NEEDS AT THIS TIME. CALL LIGHT IN REACH. IN ROOM.
--- NOTE | 2022-04-09 20:31 | NUR ---
IN TO ADMINISTER MEDICATION, SEE MAR. PT SITTING UP IN BED AND TAKES PO MEDICATION WITH NO ISSUES. SBA FROM BED TO RESTROOM AND BACK TO BED. PT HAS A STEADY GAIT TO AND FROM RESTROOM. PT DENIES DIZZINESS OR LIGHT HEADEDNESS WHILE STANDING. VITALS AND I&Os COMPLETE. ASSESSMENT COMPLETE. LUNG SOUNDS CLEAR. BOWEL TONES ACTIVE. PT DENIES ANY PAIN AT THIS TIME. IN ROOM AND REQUESTING BLANKET, BLANKET PROVIDED. NO OTHER NEEDS REPORTED AT THIS TIME. CALL LIGHT IN REACH.
--- NOTE | 2022-04-10 05:27 | NUR ---
IN TO ROUND ON PT. PT LAYING IN BED WITH EYES OPEN AND RESPONDS WHEN ADDRESSED. PT REQUESTING TO USE RESTROOM. SBA FROM BED TO RESTROOM AND BACK TO BED. PT HAS A STEADY GAIT. PT DENIES FEELING DIZZY OR LIGHT HEADED WHEN STANDING. VITALS AND I&Os COMPLETE. ASSESSMENT COMPLETE. LUNG SOUNDS CLEAR. BOWEL TONES ACTIVE. HEART TONES IRREGULAR. PT REPORTS NO PAIN AT THIS TIME. PT REPORTS NO OTHER NEEDS AT THIS TIME. CALL LIGHT IN REACH. IN ROOM ON COUCH.
--- NOTE | 2022-04-10 07:48 | NUR ---
received shift report. pt resting in bed, eyes closed. breathing even and unlabored. at bedside. call light within reach.
--- NOTE | 2022-04-10 09:10 | NUR ---
MORNING ASSESSMENT COMPLETE. PT TRANSFERRED TO CHAIR, SBA, HEARTRATE REMAINED 82 BPM ON TELE. DENIES CHEST PAIN. REPORTS LEGS FEEL WEAK BUT FEELS ITS DUE TO NOT GETTING UP. PT STATES SHE HASNT HAD A BM IN 3 DAYS BUT IS WILLING TO TRY AFTER BREAKFAST. AT BEDSIDE. CALL LIGHT WITHIN REACH.
--- NOTE | 2022-04-10 11:09 | NUR ---
PT MOVED TO M/S WEDNESDAY.PT LOOKS AND FEELS BETTER. IN RM, PT IN CHAIR. HAD GOOD VISIT, GAVE BLESSING. DR ENRIQUE IN TO VISIT WITH PT. WILL FOLLOW
--- NOTE | 2022-04-10 11:36 | NUR ---
SPOKE WITH PATIENT IN ROOM. JUST LEFT TO GO TO THE STORE. SHE IS LOOKING FORWARD TO GETTING HOME. PATIENT HAS SOME MEMORY ISSUES, BUT IS ORIENTED TO PERSON AND PLACE AND SITUATION. NO SPECIFIC COMPLAINTS.
--- NOTE | 2022-04-10 11:48 | NUR ---
PT RESTING IN BED, EYES CLOSED, BREATHING EVEN AND LABORED. LEFT TO PHARMACY. TELE 79 BPM. CALL LIGHT WITHIN REACH.
--- NOTE | 2022-04-12 15:58 | EKG ---
[facility] [address] [facility] [place] [address] Signed Atrial fibrillation Septal infarct (cited on or before 18-DEC-2019) Abnormal ECG When compared with ECG of 07-APR-2022 18:10, Atrial fibrillation has replaced Atrial flutter Questionable change in QRS axis Non-specific change in ST segment in Lateral leads Nonspecific T wave abnormality, worse in Anterior leads Confirmed by BRITTANY JOHNSON MD ([id number]) on 04/12/2022 3:58:01 PM Electronically Signed By: BRITTANY JOHNSON MD 04/12/22 1558 PATIENT NAME: GANGA DEUTSCH Electrocardiogram DATE OF : 46 PHYSICIAN: BRITTANY JOHNSON MD REPORT #: [id number] REPORT IS CONFIDENTIAL AND NOT TO BE RELEASED WITHOUT AUTHORIZATION
== END 2022-04-10 13:05 | disposition home or self-care (01) | DRG 310 ==
LOC: ED 12:29 → CCU 12:31 → MS 04-09 13:32
PROVIDERS: ADMIT Internal Medicine; ATTEND Internal Medicine
DX: I48.91 Unspecified atrial fibrillation (principal); Z20.822 Contact with and (suspected) exposure to COVID-19; F32.A Depression, unspecified; G30.9 Alzheimer's disease, unspecified; F02.80 Dementia in other diseases classified elsewhere, unspecified severity, without behavioral disturbance, psychotic disturbance, mood disturbance, and anxiety; Z96.652 Presence of left artificial knee joint; Z87.891 Personal history of nicotine dependence; Z98.890 Other specified postprocedural states; Z79.899 Other long term (current) drug therapy
CPT/HCPCS: 36415; 71045; 80048; 80053; 83735; 84443; 84484; 85025; 87502; 93005; 93010; 99285-25; A9270; C9803; J2405; J3480; J7120; U0003

== ENCOUNTER 2024-07-03 19:39 | Emergency (ER) | payer MEDICARE, OTHER ==
[~2024-07-03] VITALS: Ht 167.6 cm; Wt 63.6 kg
[~2024-07-03 19:39] MED LIST changes: +AMLODIPINE BES2.5 MG PO; +CITALOPRAM HBR40 MG PO; +DILTIAZEM 24HR120 MG PO; +DONEPEZIL HCL10 MG PO; +ELIQUIS5 MG PO; +SILDENAFIL20 MG PO
[2024-07-03 20:05] LABS: BASOPHILS 1.2 % (0-2); EOSINOPHILS 0.5 % (0-6); HEMATOCRIT 47.4 % (35.0-50.0); HEMOGLOBIN 16.4 g/dL (12.0-18.0); LYMPHOCYTES 29.8 % (24-44); MCH 30.9 (27-36); MCHC 34.5 g/dl (30-36); MCV 89.4 fl (81-99); MONOCYTES 5.9 % (0-12); NEUTROPHILS 62.6 % (39-80); PLATELET COUNT 274 K/uL (140-440); RDW 13.6 (10.5-15.0)
[2024-07-03 20:24] LABS: ALBUMIN 3.9 g/dL (3.4-5.0); ALBUMIN/GLOBULIN RATIO 1.3 (1.1-2.4); ANION GAP 13.9 (7-21); BILIRUBIN, TOTAL 0.7 mg/dL (0.2-1.0); BUN/CREATININE RATIO 18.26 (6.0-28.6); CALCIUM 9.7 mg/dL (8.5-10.1); CREATININE, SERUM 1.15 mg/dL (0.55-1.02); MAGNESIUM 2.2 mg/dL (1.8-2.4); POTASSIUM 3.9 mmol/L (3.5-5.1); PROTEIN, TOTAL 6.9 g/dL (6.4-8.2)
[2024-07-03] MEDS ORDERED: dilTIAZem HCL 25 MG/5 ML VIAL IV ONE (20:45)
[2024-07-03] MEDS ORDERED: LACTATED RINGER'S 500 ML IV ONE (20:45)
[2024-07-03] MEDS ORDERED: DILTIAZEM 24HR120 MG PO (22:03)
[2024-07-03 22:16] VITALS: BP 127/70
--- NOTE | 2024-07-04 12:28 | EKG ---
[facility] [address] [place] [address] Signed Atrial fibrillation with rapid ventricular response with premature ventricular or aberrantly conducted complexes Septal infarct (cited on or before 18-DEC-2019) Abnormal ECG When compared with ECG of 10-APR-2022 10:49, Vent. rate has increased BY [address] now depressed in Lateral leads Nonspecific T wave abnormality, worse in Lateral leads QT has shortened Confirmed by Siena Read MD () on 07/04/2024 12:28:11 PM Electronically Signed By: SIENA READ MD 07/04/24 1228 PATIENT NAME: GANGA DEUTSCH Electrocardiogram DATE OF : 46 PHYSICIAN: SIENA READ MD REPORT #: [id number] REPORT IS CONFIDENTIAL AND NOT TO BE RELEASED WITHOUT AUTHORIZATION
== END 2024-07-03 22:18 | disposition home or self-care (01) ==
LOC: ED 19:39
PROVIDERS: Internal Medicine
DX: I48.20 Chronic atrial fibrillation, unspecified (principal); Z87.891 Personal history of nicotine dependence; Z88.8 Allergy status to other drugs, medicaments and biological substances
CPT/HCPCS: 36415; 71045; 80053; 83735; 83880; 84484; 85025; 93005; 93010; 96374; 99285-25; J7120